=== PATIENT | male | born 1960 | race Two or more races ===

== ENCOUNTER 2024-11-08 22:51 | Emergency (ER) | payer MEDICAID, SELFPAY ==
[2024-11-08 23:19] VITALS: BP 149/96; PULSE 100; RESP 16; TEMP 36.9; O2SAT 95
--- NOTE | 2024-11-08 23:38 | XR_ITS ---
Examination: PA lateral chest 2 views TECHNIQUE: Upright PA and lateral chest 2 views Exam date time: November 08, 2024, 1047 hours INDICATIONS: Coughing and chest pain this week FINDINGS: Bibasilar pneumonia Normal heart size No pulmonary edema Intact osseous structures IMPRESSION: Bibasilar pneumonia
--- NOTE | 2024-11-08 23:39 | EDNOTE_ITS ---
ED Back Injury Pain RME/HPI General Chief Complaint: Back Pain/Injury Stated Complaint: RIGHT BACK AREA PAIN, COUGH Time Seen by Provider: 11/08/24 23:03 Arrival date/time: 11/08/24 22:51 Limitations: language barrier RME / HPI RME / HPI Narrative: 63-year-old male with past medical history of hypertension presents for evaluation of right rib pain x 3 days. Patient reports recent diagnosis of pneumonia for which she completed a course of antibiotics x 3 days ago. He reports intermittent nonproductive cough with chest wall pain that is worse on the right. Patient denies shortness of breath, fever, hemoptysis, nausea, vomiting, leg swelling, substernal chest pain. Patient reports he took Tylenol approximately 4 hours prior to arrival with minimal improvement of his chest wall pain. Denies known sick contacts. Denies history of recent long distance travel. Denies trauma. Related Data Home Medications ?Medication ?Instructions ?Recorded ?Confirmed Amlodipine Besylate 10 mg PO QDAY ##30 06/14/16 Aspirin (Adult Low Dose Aspirin) 81 mg PO QDAY ##30 Previous Rx's ?Medication ?Instructions ?Recorded azithromycin 250 mg tablet See Rx Instructions PO .COM PLEX 11/09/24 pneumonia #6 tabs cyclobenzaprine 10 mg tablet 10 mg PO TID PRN muscle s pasm #30 11/09/24 tabs doxycycline hyclate 100 mg capsule 100 mg PO BID pneum onia 10 days 11/09/24 #20 caps Allergies Allergy/AdvReac Type Severity Reaction Status Date / Time caffeine Allergy Severe DIFFICULTY Verified 11/08/24 22:52 BREATHING/ TACHYCARDIA ibuprofen Allergy Severe SWELLING Verified 11/08/24 22:52 TO MOUTH AND LIPS Penicillins Allergy Mild Rash Verified 11/08/24 22:52 Review of Systems Constitutional Constitutional: Denies chills, Denies excessive sweating, Denies fever(s), Denies night sweats and Denies weight loss ENT Ears, Nose, Mouth, and Throat: Denies dizziness and Denies neck pain Cardiovascular Cardiovascular: Denies chest pain, Denies dyspnea and Denies leg edema Respiratory Respiratory: Denies change in phlegm color, Reports cough, Denies dyspnea, Denies excessive phlegm production, Denies hemoptysis and Denies wheezing Gastrointestinal Gastrointestinal: Denies abdominal pain, Denies nausea and Denies vomiting Musculoskeletal Musculoskeletal: Reports back pain (Right sided thoracic pain. ) and Denies neck pain Integumentary/Breasts Skin/Breast: Denies rash Neurologic Neurologic: Denies dizziness Endocrine Endocrine: Denies excessive sweating Allergic/Immunologic Allergic/Immunologic: Denies wheezing Past Medical History Social History SMOKING STATUS: Never smoker ED Exam General Limitations: Present language barrier General appearance: Present alert and in no apparent distress Head Head exam: Present atraumatic and normocephalic Eye Eye exam: Present normal appearance and EOMI ENT ENT exam: Present normal oropharynx and mucous membranes moist Neck Neck exam: Present normal inspection and full ROM Chest Chest inspection: Present normal inspection and symmetric chest wall rise; Absent tenderness or rash Expanded Chest Exam Trauma: Absent crepitus or ecchymosis Respiratory Respiratory exam: Present normal lung sounds bilaterally; Absent respiratory distress or wheezes Cardiovascular Cardiovascular exam: Present tachycardia Abdominal Exam Abdominal exam: Present soft; Absent distention Extremities Exam Extremities exam: Present normal inspection and full ROM Back Exam Back exam: Present normal inspection and full ROM; Absent tenderness, CVA tenderness (R), CVA tenderness (L), paraspinal tenderness or vertebral tenderness Neurological Exam Neurological exam: Present alert Psychiatric Psychiatric exam: Present normal affect Skin Skin exam: Present warm, dry, intact and normal color Course Quality Measures none Orders Category Date Time Status CXR2 [XR chest 2V] Stat Exams 11/08/24 23:38 Completed CYCLObenzaPRINE [Flexeril] Med 11/09/24 00:08 Discontinued 5 mg PO X1 ONE Vital Signs Vital signs: Vital Signs Temperature 98.4 F 11/08/24 23:19 Pulse Rate 100 11/08/24 23:19 Respiratory Rate 16 11/08/24 23:19 Blood Pressure 149/96 H 11/08/24 23:19 Pulse Oximetry (%) 95 11/08/24 23:19 Oxygen Delivery Method Room Air 11/08/24 23:19 Pulse ox 95% on room air, within normal limits. Back Pain / Injury MDM Narrative MDM Narrative:: 63-year-old male presents with right sided chest wall pain for the last several days. Patient was recently diagnosed with pneumonia and finished a course of Levaquin x 3 days prior to arrival to the ED. Vital signs today significant for borderline tachycardia, otherwise reassuring. Patient nontoxic-appearing without significant physical exam. Chest x-ray was ordered given recent diagnosis of pneumonia which showed persistent bilateral bibasilar infiltrates. Chest wall pain possibly due to persistent coughing. Patient denied history of blood clots and shortness of breath, therefore less concern for PE at this time. Ultimately patient was discharged with antispasmodics and a course of azithromycin and doxycycline for recurrent pneumonia (E medical record showed possible penicillin allergy). Patient data External records reviewed:: None Clinical information provided by:: patient Social determinants that could affect healthcare access:: none Patient has the following chronic illnesses:: Recent pneumonia. How is presenting disease/condition affected by chronic disease/condition?: exacerbated by Evaluation data The following diagnostics were reviewed and interpreted by me:: radiology exam(s) Lab and/or radiology exams considered but not ordered:: Labs considered not ordered. Interpretation Summary: Chest x-ray significant for bilateral bibasilar consolidations. Medications / Prescriptions Medications or Prescriptions considered but not ordered:: Rx given. Medication administrations:: Medication Administration History Discontinued Medications Cyclobenzaprine HCl (Cyclobenzaprine 5 Mg Tablet) 5 mg PO X1 ONE Stop: 11/09/24 00:09 Last Admin: 11/09/24 00:20 Dose: 5 mg Documented By: LIAM Rx given. Consultations Consultation(s) initiated? (list below): No Diagnosis Differential diagnosis back pain/injury: strain of lumbar region, pyelonephritis, thoracic back pain, AAA and other (Costochondritis, pneumonia, chest wall discomfort.) Most likely diagnosis given after review of the tests above:: Pneumonia. Admission Indicated Admission indicated?: not indicated Admission Request Was there a request for admission?: No Disposition Plan Disposition Plan: Discharge Discharge Attestation Discharge Attestation: The patient and all family members were given an opportunity to ask questions and understood the discharge instructions. Discharge instructions specifically effects, indications for sooner follow up or return to the emergency department, and the expected course of current diagnosis. Patient condition: Stable Discharge Plan Plan Patient Disposition: HOME (Self Care) Disposition Comment: stable Prescriptions/Referrals Prescriptions/Med Rec: New azithromycin 250 mg tablet See Rx Instructions .ROUTE .COMPLEX Qty: 6 0RF Rx Instructions: For 250 mg dose pack: take 500 mg today (day 1), then 250 mg for 4 days (days 2-5) doxycycline hyclate 100 mg capsule 100 mg PO BID 10 Days Qty: 20 0RF cyclobenzaprine 10 mg tablet 10 mg PO TID PRN (Reason: muscle spasm) Qty: 30 0RF No Action Amlodipine Besylate 10 MG tablet 10 mg PO QDAY Qty: 30 Aspirin (Adult Low Dose Aspirin) 81 MG TABLET. 81 mg PO QDAY Qty: 30 Referrals: Gee Segal [Primary Care Provider] - In 1 week Problem List Clinical Impression: Bilateral pneumonia Patient/Caregiver Discharge Instructions Other Activity Instructions:: Follow-up with primary care tomorrow as planned. Take antibiotic as directed if primary care provider does not start you on a different course of antibiotics. Take cyclobenzaprine as needed for muscle spasm free hours. Return to the ED if your symptoms worsen or change. Education Materials: ED Pneumonia (Adult) Print Language: Italian Stand Alone Forms: Hilda Award Info., Patient Portal Info Letter PA/DIRECTOR PRODUCT MANAGEMENT Supervising Physician PA/DIRECTOR PRODUCT MANAGEMENT Supervising Physician: Dr. Byrd
[2024-11-09] MEDS: CYCLObenzaPRINE 5 MG TABLET PO (00:20)
== END 2024-11-09 00:25 | disposition home or self-care (01) ==
PROVIDERS: Emergency Provider Emergency Medicine; PCP Physician Assistant
DX: J18.9 Pneumonia, unspecified organism (principal)
CPT/HCPCS: 71046; 99283; A9270

== ENCOUNTER → 2024-12-10 | Outpatient (CLI) | payer MEDICAID, SELFPAY ==
--- NOTE | 2024-12-10 13:18 | XR_ITS ---
Examination: CT chest, without intravenous contrast. Sagittal and coronal 2-D reconstructions. Exam date and time: December 10, 2024 1344 hours INDICATIONS: Coughing congestion pneumonia one month CTDI:vol (mGy) 13.5 DLP: (mGycm) 518 Technique: Multiple 3.0 mm axial sections of the chest to been obtained. Bone and lung density settings are obtained. Sagittal and coronal 2-D reconstructions have been obtained. Low dose protocols were performed. One or more of the following dose reduction techniques were used; automated exposure control, adjustment of the mA and/or KV according to patient size, use of iterative reconstruction technique. Findings: No thoracic aortic aneurysm dilatation Pulmonary artery segments are not enlarged Moderate calcification left anterior descending coronary artery Mild enlargement left atrium left ventricle Significant pneumonia right base with small to moderate right pleural effusion No focal liver or splenic lesion 10 mm right adrenal adenoma Contracted gallbladder No pancreatic mass Moderate thoracic spondylosis IMPRESSION: Significant pneumonia right base Small to moderate right pleural effusion
== END | disposition home or self-care (01) ==
LOC: SCAT 13:10
PROVIDERS: PCP Physician Assistant; Referring Provider Physician Assistant; Visit Provider Physician Assistant
DX: J18.9 Pneumonia, unspecified organism (principal); J90 Pleural effusion, not elsewhere classified
CPT/HCPCS: 71250

== ENCOUNTER → 2025-01-26 | Outpatient (CLI) | payer MEDICAID, SELFPAY ==
--- NOTE | 2025-01-26 09:57 | XR_ITS ---
Examination: PA lateral chest 2 views TECHNIQUE: Upright PA lateral chest 2 views Date and time: January 26, 2025, 1007 hours Comparison November 08, 2024 INDICATIONS: Chest pain today. FINDINGS: Large right pleural effusion Pneumonia right lower lung zone No pulmonary edema No significant cardiac enlargement IMPRESSION: Large right pleural effusion Pneumonia right lower lung zone
== END | disposition home or self-care (01) ==
PROVIDERS: PCP Physician Assistant; Referring Provider Physician Assistant; Visit Provider Physician Assistant
DX: J90 Pleural effusion, not elsewhere classified (principal); J18.9 Pneumonia, unspecified organism
CPT/HCPCS: 71046

== ENCOUNTER 2025-02-18 17:04 | Inpatient (IN) | payer MEDICAID, SELFPAY ==
[2025-02-18] VITALS (9 sets, daily range): BP systolic 113–148; BP diastolic 72–101; PULSE 85–130; RESP 16–21; TEMP 37.1–37.2; O2SAT 94–98; BMI 26.4
--- NOTE | 2025-02-18 17:36 | XR_ITS ---
Examination: PA lateral chest 2 views TECHNIQUE: Upright PA and lateral chest 2 views Date and time: February 18, 2025, 1750 hours Comparison January 26, 2025 INDICATION: Chest pain and shortness of breath beginning 4 months ago. FINDINGS: Again noted large right pleural effusion with atelectasis and/or pneumonia right base Minor prominence left ventricle. No pulmonary edema IMPRESSION: Again noted large right pleural effusion with atelectasis and/or pneumonia right base
--- NOTE | 2025-02-18 17:36 | EKG_ITS ---
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
--- NOTE | 2025-02-18 17:36 | EDRME_ITS ---
Rapid Medical Screening Exam [facility] Arrival date/time: 02/18/25 17:04 64-year-old male with a history of hypertension presents to the emergency room with a chief complaint of shortness of breath, chest pain, palpitations x 3 days. Patient states he was seen by his primary care provider who sent him to the emergency room due to a pleural effusion. I have greeted and performed a focused initial assessment of this patient. A comprehensive ED assessment and evaluation of the patient, analysis of all test results, and completion of the medical decision making process will be conducted by additional ED providers. Chief Complaint: Shortness of Breath/Dyspnea Vital signs reviewed by provider: Yes
[2025-02-18 18:25] LABS: Basophils # (Auto) 0.0 Thou/mm3 (0.0-0.2); Basophils % (Auto) 0 % (0-2.5); Eosinophils # (Auto) 0.1 Thou/mm3 (0.0-0.5); Eosinophils % (Auto) 1 % (0-10); Hematocrit 45.9 % (41.0-53.0); Hemoglobin 15.3 g/dL (13.5-16.0); Immature Granulocytes Auto 0.05 Thou/mm3 (0.00-0.00); Lymphocytes # (Auto) 2.0 Thou/mm3 (1.0-4.8); Lymphocytes % (Auto) 17 % (10-50); Mean Corpuscular HGB Conc 33.3 g/dl (31.0-37.0); Mean Corpuscular Hemoglobin 26.2 pg (25.0-35.0); Mean Corpuscular Volume 79 fL (80-100); Monocytes # (Auto) 0.8 Thou/mm3 (0.0-0.8); Monocytes % (Auto) 7 % (0-12); Neutrophils # (Auto) 8.7 Thou/mm3 (1.8-7.7); Neutrophils % (Auto) 75 % (37-80); Nucleated Red Blood Cell # 0.00 Thou/mm3 (0.00-0.00); Nucleated Red Blood Cell % 0 /100 WBC (0); Platelet Count 354 Thou/mm3 (140-440); RDW Standard Deviation 39.6 fL (35.1-43.9); Red Blood Count 5.85 Miln/mm3 (4.50-5.90); White Blood Count 11.6 Thou/mm3 (3.8-10.6)
[2025-02-18 18:46] LABS: B-Type Natriuretic Peptide 89 pg/mL (0-100)
[2025-02-18 18:47] LABS: INR 1.1 (0.9-1.3); Partial Thromboplastin Time 28.7 Seconds (22.0-36.0); Prothrombin Time 12.0 Seconds (9.0-12.2)
[2025-02-18 18:48] LABS: Alanine Aminotransferase 40 U/L (10-49); Albumin, Serum 4.3 gm/dL (3.4-4.8); Albumin/Globulin Ratio 1.3 (1.2-2.2); Alkaline Phosphatase 126 U/L (46-116); Anion Gap 8 (7-16); Aspartate Amino Transferase 21 U/L (0-34); BUN/Creatinine Ratio 16 Ratio (12-20); Bilirubin,Total 0.4 mg/dL (0.3-1.2); Blood Urea Nitrogen 16 mg/dL (9-23); Calcium 9.4 mg/dL (8.3-10.6); Calcium (Corrected) 9.4 mg/dL (8.5-10.1); Carbon Dioxide 29.0 mMol/L (20.0-31.0); Chloride 102 mMol/L (98-107); Creatinine (Component) 1.0 mg/dL (0.6-1.3); Estimated Creatinine Clearance 68.2 mL/min (>60); Globulin 3.3 gm/dL (2.3-3.5); Glucose 253 mg/dL (74-106); Osmolality,Calculated 287 (275-295); Potassium 4.0 mMol/L (3.4-5.1); Sodium 139 mMol/L (136-145); Total Protein 7.6 gm/dL (5.7-8.2); Troponin I < 0.020 ng/mL (0.0-0.045); eGFR > 60 See Note
--- NOTE | 2025-02-18 19:19 | PD.EDADULT ---
ED General RME/HPI General Chief complaint: Shortness of Breath/Dyspnea Stated complaint: SENT BY PMD FOR RIGHT PLURAL EFFUSION Time Seen by Provider: 02/18/25 18:20 Arrival date/time: 02/18/25 17:04 RME / HPI RME / HPI narrative: 02/18/25 17:04 64-year-old male with a history of hypertension presents to the emergency room with a chief complaint of shortness of breath, chest pain, palpitations x 3 days. Patient states he was seen by his primary care provider who sent him to the emergency room due to a pleural effusion. I have greeted and performed a focused initial assessment of this patient. A comprehensive ED assessment and evaluation of the patient, analysis of all test results, and completion of the medical decision making process will be conducted by additional ED providers. Related Data Home Medications ?Medication ?Instructions ?Recorded ?Confirmed Amlodipine Besylate 10 mg PO QDAY ##30 06/14/16 Aspirin (Adult Low Dose Aspirin) 81 mg PO QDAY ##30 06/14/16 Previous Rx's ?Medication ?Instructions ?Recorded azithromycin 250 mg tablet See Rx Instructions PO .COMPLEX 11/09/24 pneumonia #6 tabs cyclobenzaprine 10 mg tablet 10 mg PO TID PRN muscle spasm #30 11/09/24 tabs Allergies Allergy/AdvReac Type Severity Reaction Status Date / Time caffeine Allergy Severe DIFFICULTY Verified 02/18/25 17:10 BREATHING/ TACHYCARDIA ibuprofen Allergy Severe SWELLING Verified 02/18/25 17:10 TO MOUTH AND LIPS Penicillins Allergy Mild Rash Verified 02/18/25 17:10 Review of Systems Review of Systems Systems Reviewed: All systems reviewed, normal except as documented ED Exam Narrative Physical exam: Physical Exam GENERAL: NAD, AAOx3 HEENT: Moist mucosa. Eyes open, symmetrical, & clear CARDIO: Heart irregularly irregular, tachycardic, no obvious murmurs PULM: diminished breath sounds on the right, CTA on the left GI: Abdomen soft, nondistended, no pain on palpation. BSx4 SKIN/MSK/EXT: No wounds/rashes/edema/amputations, no pain on palpation. Pedal pulses present B/L NEURO: AAOx3, no focal neuro deficits, able to move all 4 extremities Course Course Course Narrative: 1942 Diltiazem 15mg IVx1 ordered 2012 spoke to IM team will accept the patient Quality Measures none Orders Category Date Time Status Powderer Q4H START 00 Care 02/18/25 19:51 Active EKG (ED ONLY) *Do not use* NOW Care 02/18/25 17:36 Completed Insert [Insert IV] NOW Care 02/18/25 19:43 Active Consult to Cardiology Stat Cons 02/18/25 20:14 Ordered CA echo doppler complete Stat Exams 02/18/25 20:14 Ordered EKG (ED Only) Stat Exams 02/18/25 17:36 Draft US thoracentesis Stat Exams 02/18/25 20:14 Ordered XR chest 2V Stat Exams 02/18/25 17:36 Completed B-Type Natriuretic Peptide Stat Lab 02/18/25 18:03 Completed CBC Stat Lab 02/18/25 18:03 Completed Comprehensive Metabolic Panel Stat Lab 02/18/25 18:03 Completed Partial Thromboplastin Time Stat Lab 02/18/25 18:03 Completed Prothrombin Time with INR Stat Lab 02/18/25 18:03 Completed Troponin I Stat Lab 02/18/25 18:03 Completed Diltiazem Inj [Cardizem Inj] Med 02/18/25 19:43 Discontinued 15 mg IV X1 ONE Diltiazem Inj [Cardizem Inj] Med 02/18/25 20:16 Discontinued 20 mg IV X1 ONE Vital Signs Vital signs: Vital Signs Temperature 98.9 F 02/18/25 17:36 Pulse Rate 105 H 02/18/25 17:36 Respiratory Rate 19 02/18/25 17:36 Blood Pressure 148/92 H 02/18/25 17:36 Pulse Oximetry (%) 96 02/18/25 17:36 Oxygen Delivery Method Room Air 02/18/25 17:36 Discharge Plan Plan Patient Disposition: Admit Acute Care w/in Hospital Problem List Clinical Impression: Pleural effusion, Atrial fibrillation, Atrial fibrillation and flutter MDM Narrative MDM hospital course: 64 y/o M with PMHx of Hypertension, asthma, HLD presented to the ED due to palpitations. he states palpitations get worse with ambulation but they are consistently present. 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 Patient has been having recurrent pneumonias for the past 3 months and has completed Abx therapy. Last Abx therapy completed around 10 days ago. He endorses continous fever and chills. EKG reviewed shows A-fib RVR rate ~120s, No ST ischemic changes noted, nor QT prolongation Was placed in a room for continuous cardiac monitoring. ordered 20mg diltiazem IV x1 Spoke to service correspondent Dr. bloom who recommended admission and possible Amiodarone drip if afib is uncontrolled. Clinical Information Provided by patient and family Medical Records Reviewed None Meds/Rx Considered, not Ordered None Chronic Illness/Social Conditions which may negatively complicate care or outcome(s)-explain: None or not applicable Lab Interpretation Labs: interpreted by me Lab(s) interpretation(s): CBC unremarkable, CMP unremarkable, troponins negative, BNP negative Imaging Imaging interpretation: interpreted by ak Provider imaging interpretation(s): CXR large right sided pleural effusion, right sided pneumonia. Medication Administration(s) Medication Administration History Acetaminophen (Acetaminophen 325 Mg Tablet) 650 mg PO Q6H PRN PRN Reason: Pain 1-3 and/or Fever >100.1 Stop: 03/20/25 20:27 Dextrose (Dextrose 50%-Water Inj 50 Ml Syringe) 25 ml IV Q15MIN PRN PRN Reason: BG 50-70 responsive npo pt Stop: 03/20/25 21:30 Dextrose (Dextrose 50%-Water Inj 50 Ml Syringe) 50 ml IV Q15MIN PRN PRN Reason: BG <50 OR BG <70 & pt unresponsive Stop: 03/20/25 21:30 Glucagon (Glucagon Inj 1 Mg Vial) 1 mg IM Q15MIN PRN PRN Reason: BG <70, and no IV access Heparin Sodium (Porcine) (Heparin Sod Inj 5000 Unit/Ml Vial) 4,000 unit IV X1 ONE; Protocol Stop: 02/18/25 22:06 Cefepime HCl 1 gm/ Sodium (Chloride) 50 mls @ 100 mls/hr IV Q8HR [facility] Stop: 02/25/25 20:37 Last Infusion: 02/18/25 22:21 Dose: Infused Documented By: Admin: 02/18/25 21:42 Dose: 100 mls/hr Documented By: PHILLIP Azithromycin 500 mg/ Sodium (Chloride) 250 mls @ 250 mls/hr IV QDAY [facility] Stop: 02/25/25 21:57 Heparin Sodium/Dextrose (Heparin In D5w Ivpb) 25,000 unit in 250 mls @ 11.158 mls/hr IV .[id number] [facility]; Protocol Stop: 03/04/25 21:59 Azithromycin 500 mg/ Sodium (Chloride) 250 mls @ 250 mls/hr IV X1 ONE Stop: 02/18/25 23:14 Insulin Human Lispro (Insulin Lispro (Admelog) 1 Unit/0.01 Ml Unit) 0 unit SC AC [facility]; Protocol Stop: 03/21/25 07:29 Metoprolol Tartrate (Metoprolol Tartrate 25 Mg Tablet) 25 mg PO TID TU Stop: 03/20/25 21:59 Last Admin: 02/18/25 21:41 Dose: 25 mg Documented By: PHILLIP Ondansetron HCl (Ondansetron Inj 2 Mg/Ml Inj 2 Ml) 4 mg IVP Q6H PRN; Protocol PRN Reason: NAUSEA OR VOMITING Stop: 03/20/25 20:27 Sennosides (Senna Tablet) 1 tab PO QDAY PRN; Protocol PRN Reason: constipation Stop: 03/20/25 20:27 Discontinued Medications Diltiazem HCl (Diltiazem Inj 5 Mg/Ml Vial 5 Ml) 15 mg IV X1 ONE Stop: 02/18/25 19:44 Last Admin: 02/18/25 21:49 Dose: Not Given Documented By: PHILLIP Non-Admin Reason: Cancelled by Provider Diltiazem HCl (Diltiazem Inj 5 Mg/Ml Vial 5 Ml) 20 mg IV X1 ONE Stop: 02/18/25 20:17 Last Admin: 02/18/25 20:33 Dose: 20 mg Documented By: PHILLIP Comments: OVER 5 MINUTES TO 18G RIGHT HAND Heparin Sodium (Porcine) (Heparin Sod Inj 5000 Unit/Ml Vial) 5,000 unit SC Q12HR [facility] Stop: 03/04/25 20:59 Last Admin: 02/18/25 21:46 Dose: 5,000 unit Documented By: PHILLIP Co-signed By: SOFIYA Heparin Sodium (Porcine) (Heparin Sod Inj 5000 Unit/Ml Vial) 5,950 unit 80 unit/kg (5950 unit) IV X1 ONE; Protocol Stop: 02/18/25 22:01 Sodium Chloride (Ns) 500 mls @ 999 mls/hr IV .Q31M ONE Stop: 02/18/25 21:01 Last Infusion: 02/18/25 22:21 Dose: Infused Documented By: Admin: 02/18/25 20:49 Dose: 999 mls/hr Documented By: PHILLIP Sodium Chloride (Sodium Chloride Rt 10% 15 Ml Nebu) 5 ml INH X1 ONE Stop: 02/18/25 21:14 Last Admin: 02/18/25 21:44 Dose: 5 ml Documented By: DIDIER Sodium Chloride (Sodium Chloride Rt 10% 15 Ml Nebu) 5 ml INH X1 ONE Stop: 02/18/25 21:59 Diagnosis Differential diagnosis: Recurrent pleural effusions, Atrial fibrillation RVR, Differential dx and/or dx ruled out: NSTEMI Most likely dx, and/or detailed dx discussion: Afib RVR Dispositon Disposition: Admit
[2025-02-18] MEDS: DILTIAZEM INJ 5 MG/ML VIAL 5 ML 20 MG IV (20:33)
[2025-02-18] MEDS: SODIUM CHLORIDE 0.9% 500 ML 500 ML 999 ML IV (20:49)
--- NOTE | 2025-02-18 21:05 | ESHP_ITS ---
Documentation for date of: 02/18/25 HPI History of Present Illness Chief complaint: Palpitations History of present illness: 64-year-old male past medical history of hypertension, prediabetes and recurrent pneumonia which has failed outpatient antibiotic therapy presenting to the ED on 02/18 with palpitations and feeling tachycardic. Patient is accompanied by his daughter who is bedside who provided history regarding the patient's status. Patient has been dealing with recurrent pneumonia infections for several months and states that he has been having cough productive of sputum, weight loss (about 21 pounds since September), night sweats but denies having any active chest pain, diarrhea, hematemesis, melena or hematochezia. Of note, patient recently traveled to [place] but denies having any sick contacts. 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 Medical history: As stated above Surgical history: Right knee and shoulder surgery, hernia repair Medications: Pending med rec Allergies: Caffeine causes difficulty breathing, tachycardia, ibuprofen causes swelling in the mouth and lips, penicillin causes rash Family history: Noncontributory Social history: Patient lives in [place] with and daughter, denies smoking tobacco, alcohol use or illicit drug use. Recent travel to [place] in September ROS: All 12 systems assessed and the patient denies unless otherwise stated in HPI. In the ED, patient presented hypertensive 148/92, tachycardic heart rate 105, respiratory rate 19, afebrile satting 96 on room air. Pertinent lab findings included WBC 11.6, glucose 253, troponin within normal limits, BNP of 89. Chest x-ray shows large right pleural effusion with atelectasis and superimposed pneumonia. EKG showed A-fib with RVR. Patient will be admitted for new onset atrial fibrillation likely secondary to right-sided pleural effusion and pneumonia requiring IV antibiotics and ultrasound-guided thoracentesis; cardiology is consulted for recommendations. Exam Vital Signs Temp Pulse Resp BP Pulse Ox O2 Del Method 98.8 F 99 19 131/72 H 94 L Room Air 02/18/25 20:48 02/18/25 20:50 02/18/25 20:50 02/18/25 20:50 02/18/25 20:50 02/18/25 20:50 Narrative Exam Physical Exam: GENERAL: Awake, answering questions appropriately in [place], appears stated age HEENT: NC/AT. Moist mucosa. PERRLA/EOMI. CARDIO: Irregulary irregular, no obvious murmurs, no JVD. PULM: No coughing or visible SOB. Lungs CTA B/L. GI: Abdomen soft, NT/ND, +BS. SKIN/MSK/EXT: No wounds/discoloration/rashes/edema/amputations. +Pedal pulses present B/L. NEURO: Oriented x3, Moves extremities x4, no focal neurologic deficits noted Results: Labs 02/18/25 18:03 02/18/25 18:03 Labs: Short CBC 02/18/25 Range/Units 18:03 WBC 11.6 H (3.8-10.6) Thou/mm3 Hgb 15.3 (13.5-16.0) g/dL Hct 45.9 (41.0-53.0) % Plt Count 354 (140-440) Thou/mm3 BMP 02/18/25 18:03 Sodium 139 Potassium 4.0 Chloride 102 Carbon Dioxide 29.0 BUN 16 Creatinine 1.0 Glucose 253 H Calcium 9.4 Cardiac Enzymes 02/18/25 Range/Units 18:03 Troponin I < 0.020 (0.0-0.045) ng/mL Liver Function 02/18/25 Range/Units 18:03 Total Bilirubin 0.4 (0.3-1.2) mg/dL AST 21 (0-34) U/L ALT 40 (10-49) U/L Alkaline Phosphatase 126 H (46-116) U/L Albumin 4.3 (3.4-4.8) gm/dL Quality Measures Quality Measures none Medications Home Medications and Allergies Home Medications ?Medication ?Instructions ?Recorded ?Confirmed ?Type Amlodipine Besylate 10 mg PO QDAY ##30 06/14/16 History Aspirin (Adult Low Dose Aspirin) 81 mg PO QDAY ##30 History Allergies Allergy/AdvReac Type Severity Reaction Status Date / Time caffeine Allergy Severe DIFFICULTY Verified 02/18/25 17:10 BREATHING/ TACHYCARDIA ibuprofen Allergy Severe SWELLING Verified 02/18/25 17:10 TO MOUTH AND LIPS Penicillins Allergy Mild Rash Verified 02/18/25 17:10 Visit Medications Acetaminophen (Acetaminophen 325 Mg Tablet) 650 mg PO Q6H PRN PRN Reason: Pain 1-3 and/or Fever >100.1 Stop: 03/20/25 20:27 Heparin Sodium (Porcine) (Heparin Sod Inj 5000 Unit/Ml Vial) 5,000 unit SC Q12HR TU Stop: 03/04/25 20:59 Cefepime HCl 1 gm/ Sodium (Chloride) 50 mls @ 100 mls/hr IV Q8HR TU Stop: 02/25/25 20:37 Metoprolol Tartrate (Metoprolol Tartrate 25 Mg Tablet) 25 mg PO TID TU Stop: 03/20/25 21:59 Ondansetron HCl (Ondansetron Inj 2 Mg/Ml Inj 2 Ml) 4 mg IVP Q6H PRN; Protocol PRN Reason: NAUSEA OR VOMITING Stop: 03/20/25 20:27 Sennosides (Senna Tablet) 1 tab PO QDAY PRN; Protocol PRN Reason: constipation Stop: 03/20/25 20:27 Discontinued Medications Diltiazem HCl (Diltiazem Inj 5 Mg/Ml Vial 5 Ml) 15 mg IV X1 ONE Stop: 02/18/25 19:44 Diltiazem HCl (Diltiazem Inj 5 Mg/Ml Vial 5 Ml) 20 mg IV X1 ONE Stop: 02/18/25 20:17 Last Admin: 02/18/25 20:33 Dose: 20 mg Sodium Chloride (Ns) 500 mls @ 999 mls/hr IV .Q31M ONE Stop: 02/18/25 21:01 Last Admin: 02/18/25 20:49 Dose: 999 mls/hr Assessment & Plan Plan 64-year-old male past medical history of hypertension, prediabetes and recurrent pneumonia which has failed outpatient antibiotic therapy presenting to the ED on 02/18 with palpitations and feeling tachycardic will be admitted for new onset atrial fibrillation likely secondary to right-sided pleural effusion and pneumonia requiring IV antibiotics and ultrasound-guided thoracentesis; cardiology is consulted for recommendations. #New onset atrial fibrillation Differentials include: Secondary to pulmonary infection, pleural effusion versus cardiac etiology, valvular disorder, less likely to be hypothyroidism [id number] score of 2 Patient presenting as per HPI with palpitations ongoing for about 1 day, EKG at pulmonology clinic showed atrial fibrillation at which point patient presented to the ED On examination, patient's heart rate fluctuating between 100-130 EKG showed A-fib with RVR, troponin within normal limits, BNP of 89 Cardiology was consulted in the ED, recommendation was to give 15 mg diltiazem push x 1 which brought down the patient's heart rate to a low of 90s Plan: Telemetry admission Cardiology consulted, appreciate recommendations Start patient on IV heparin for new onset atrial fibrillation Echo ordered Metoprolol tartrate 25 mg p.o. 3 times daily for rate control Follow-up on TSH and lipid panel #Right pleural effusion with superimposed pneumonia #Atypical pneumonia Differentials include: Cocci pneumonia, tuberculosis, pulmonary neoplasm, aspergillosis, other atypical bacterial infection, autoimmune versus vascular Patient's been having recurrent pneumonia since September 2024, failed outpatient antibiotic treatment PCP sent the patient to pulmonology for workup as stated above Patient has been having night sweats, weight loss (21 pounds as above), recent travel to [place] CT from 12/10 showed significant pneumonia right base along with small to moderate right pleural effusion Chest x-ray shows large right pleural effusion with atelectasis and superimposed pneumonia Plan: CT chest ordered, follow-up Ultrasound-guided thoracentesis ordered; consider consulting ICU team for thoracentesis - not emergently needed as the patient is stable at this time. Get CYTOLOGY Form Start patient on IV cefepime 1 g every 8 and IV azithromycin 500 mg Follow-up on cocci, aspergillosis, AFB and QuantiFERON Avoid steroids for possible fungal infection JORGE L, ANCA, ESR and CRP ordered to rule out vasculitis etiology #Hypertension Patient on home antihypertensives, pending official med rec Currently normotensive Plan: Will resume antihypertensives when appropriate #Prediabetes No A1c on file, presenting with glucose of 253 Plan: Sliding-scale insulin Follow-up with morning A1c Health Maintenance: Lines: PIV Diet: Cardiac Bowel: Senna as needed GI prophylaxis: Not needed DVT prophylaxis: Heparin drip Dispo: Workup for new onset A-fib, thoracentesis for pleural effusion and diagnosis of atypical pneumonia Code: Full Patient seen and examined with attending Dr. Bunny Epperson, DO PGY-2 Internal Medicine - [facility]
[2025-02-18] MEDS: METOPROLOL TARTRATE 25 MG TABLET PO (21:41)
[2025-02-18] MEDS: CEFEPIME INJ 1 GM in SODIUM CHLORIDE 0.9% (Popper) 50 ML IV (21:42)
[2025-02-18] MEDS: SODIUM CHLORIDE RT 10% 15 ML NEBU 5 ML INH (21:44)
[2025-02-18] MEDS: HEPARIN SOD INJ 5000 UNIT/ML VIAL SC (21:46)
--- NOTE | 2025-02-18 21:58 | XR_ITS ---
Examination: CT chest, without intravenous contrast. Sagittal and coronal 2-D reconstructions. Exam date and time: February 18, 2025 at 11:13 PM Comparison December 10, 2024 INDICATIONS: Difficulty breathing this week CTDI:vol (mGy) 13 DLP: (mGycm) 499 Technique: Multiple 3.0 mm axial sections of the chest to been obtained. Bone and lung density settings are obtained. Sagittal and coronal 2-D reconstructions have been obtained. Low dose protocols were performed. One or more of the following dose reduction techniques were used; automated exposure control, adjustment of the mA and/or KV according to patient size, use of iterative reconstruction technique. Findings: AP dimension ascending thoracic aorta 3.8 cm Pulmonary artery segments are not enlarged. Heavy calcification left anterior descending coronary artery. Right base pneumonia. Moderate to large right pleural effusion No liver or splenic lesion IMPRESSION: Right base pneumonia Moderate to large right pleural effusion
[2025-02-18 22:28] LABS: Sed Rate (ESR) 71 mm/hr (0-20)
--- NOTE | 2025-02-18 23:00 | PC.NURSE ---
SPOKE WITH DR. NELSON TO VERIFY HEPARIN BOLUS PATIENT HAS ALREADY RECEIVED HEPARIN 500UNITS SQ, PER DR. NELSON HEPARIN 4000 UNITS TO STILL BE GIVEN AND TO START HEPARIN DRIP RATE AT 15 UNITS/KG/HR.
[2025-02-18] MEDS: Heparin/D5w 25K 250 ML Ivpb 25,000 UNIT/250 ML BAG 11.376 UNIT IV (23:37)
--- NOTE | 2025-02-18 23:59 | PC.NURSE ---
DR. FONG NOTIFIED THAT PATIENT REFUSED AZITHROMYCIN MEDICATION, NO NEW ORDERS RECEIVED.
[2025-02-19] VITALS (18 sets, daily range): BP systolic 102–139; BP diastolic 56–97; PULSE 77–126; RESP 16–22; TEMP 36.1–37; O2SAT 92–99
[2025-02-19 00:47] LABS: Respiratory Syncytial Virus Ag Negative (Negative)
[2025-02-19 00:57] LABS: C-Reactive Protein 2.7 mg/dL (0.0-0.9)
--- NOTE | 2025-02-19 01:08 | PC.NURSE ---
surface water technician called and stated the sputum sample sent had a lot of epithelial cells, stated it needs to be collected again. Will notify RN in charge of care of pt.
--- NOTE | 2025-02-19 03:33 | PC.RT ---
pt unable to give sputum sample
--- NOTE | 2025-02-19 04:23 | PC.NURSE ---
DR. FONG NOTIFIED OF EPISODE OF V-TACH AND RHYTHM RETURNING TO A-FIB. PATIENT DENIES CHEST PAIN,PALPITATIONS, OR SOB, NO NEW ORDERS RECEIVED.
[2025-02-19 04:37] LABS: Basophils # (Auto) 0.0 Thou/mm3 (0.0-0.2); Basophils % (Auto) 0 % (0-2.5); Eosinophils # (Auto) 0.2 Thou/mm3 (0.0-0.5); Eosinophils % (Auto) 2 % (0-10); Hematocrit 42.9 % (41.0-53.0); Hemoglobin 14.5 g/dL (13.5-16.0); Immature Granulocytes Auto 0.06 Thou/mm3 (0.00-0.00); Lymphocytes # (Auto) 2.6 Thou/mm3 (1.0-4.8); Lymphocytes % (Auto) 22 % (10-50); Mean Corpuscular HGB Conc 33.8 g/dl (31.0-37.0); Mean Corpuscular Hemoglobin 26.6 pg (25.0-35.0); Mean Corpuscular Volume 79 fL (80-100); Monocytes # (Auto) 0.9 Thou/mm3 (0.0-0.8); Monocytes % (Auto) 8 % (0-12); Neutrophils # (Auto) 7.9 Thou/mm3 (1.8-7.7); Neutrophils % (Auto) 68 % (37-80); Nucleated Red Blood Cell # 0.00 Thou/mm3 (0.00-0.00); Nucleated Red Blood Cell % 0 /100 WBC (0); Platelet Count 312 Thou/mm3 (140-440); RDW Standard Deviation 39.2 fL (35.1-43.9); Red Blood Count 5.45 Miln/mm3 (4.50-5.90); White Blood Count 11.6 Thou/mm3 (3.8-10.6)
[2025-02-19 05:08] LABS: Alanine Aminotransferase 32 U/L (10-49); Albumin, Serum 3.6 gm/dL (3.4-4.8); Albumin/Globulin Ratio 1.3 (1.2-2.2); Alkaline Phosphatase 136 U/L (46-116); Anion Gap 10 (7-16); Aspartate Amino Transferase 18 U/L (0-34); BUN/Creatinine Ratio 18 Ratio (12-20); Bilirubin,Total 0.3 mg/dL (0.3-1.2); Blood Urea Nitrogen 14 mg/dL (9-23); Calcium 8.6 mg/dL (8.3-10.6); Calcium (Corrected) 8.9 mg/dL (8.5-10.1); Carbon Dioxide 28.4 mMol/L (20.0-31.0); Cardiac Risk Estimate 5.7 RATIO (4.0-6.7); Chloride 102 mMol/L (98-107); Cholesterol 142 mg/dL (132-200); Creatinine (Component) 0.8 mg/dL (0.6-1.3); Estimated Creatinine Clearance 85.3 mL/min (>60); Globulin 2.8 gm/dL (2.3-3.5); Glucose 314 mg/dL (74-106); HDL Cholesterol 25 mg/dL (40-60); LDL Cholesterol,Calculated 63 mg/dL (0-130); Magnesium 1.5 mg/dL (1.6-2.6); Osmolality,Calculated 291 (275-295); Phosphorous 2.2 mg/dL (2.4-5.1); Potassium 3.7 mMol/L (3.4-5.1); Sodium 140 mMol/L (136-145); Thyroid Stimulating Hormone 2.75 uIU/mL (0.55-4.78); Total Protein 6.4 gm/dL (5.7-8.2); Triglycerides 268 mg/dL (30-150); eGFR > 60 See Note
[2025-02-19 05:19] LABS: Glucose Estimated Average 157 mg/dL (80-131); Hemoglobin A1C 7.1 % Hgb (4.8-6.0)
[2025-02-19] MEDS: CEFEPIME INJ 1 GM in SODIUM CHLORIDE 0.9% (Popper) 50 ML IV ×3 (05:46→23:54)
[2025-02-19 06:17] LABS: Partial Thromboplastin Time 46.1 Seconds (22.0-36.0)
[2025-02-19] MEDS: NAPH,KPH MBDB 1 PACKET (1.5 GM) PO (06:22)
[2025-02-19] MEDS: METOPROLOL TARTRATE 25 MG TABLET PO ×3 (06:22→23:02)
[2025-02-19] MEDS: Magnesium Sulfate 4 GM Ivpb 4 GM/50 ML BAG IV (06:23)
[2025-02-19] MEDS: INSULIN LISPRO (AdmeLOG) 1 UNIT/0.01 ML UNIT SC ×3 (08:09→16:56)
[2025-02-19] MEDS: HEPARIN SOD INJ 5000 UNIT/ML VIAL 3000 UNIT IVP (08:10)
[2025-02-19] MEDS: AZITHROMYCIN INJ 500 MG in SODIUM CHLORIDE 0.9% 250 ML 250 ML 250 MG IV (13:29)
[2025-02-19 13:50] LABS: Cocci Serology, IgM Negative (Negative)
--- NOTE | 2025-02-19 14:03 | PC.RT ---
Noc shift RT attempted to collect sputum sample in ER with induction, however pt was only able to produce saliva. Day shift RT attempted to collect another sample in ER, but pt stated via dietary services manager that he is dry and has no mucous or phlegm to produce.
[2025-02-19 14:15] LABS: Partial Thromboplastin Time 61.3 Seconds (22.0-36.0)
--- NOTE | 2025-02-19 15:16 | ESPR_ITS ---
Documentation for date of: 02/19/25 Subjective Subjective Interval history: Patient seen sitting upright in bed in no acute distress. Denies palpitations, chest pain, shortness of breath, pleuritic chest pain, fever, or chills. States he rarely coughs, no blood in sputum. Denies headaches. Had breakfast this morning and feels well overall. No bowel movement yet since admission. Exam Vital Signs Temp Pulse Resp BP Pulse Ox O2 Del Method 97.1 F 126 H 17 131/97 H 96 Room Air 02/19/25 11:41 02/19/25 14:56 02/19/25 11:41 02/19/25 14:56 02/19/25 11:41 02/19/25 11:41 Narrative Exam GENERAL: Sitting upright in bed, no acute distress, conversing appropriately in [place]. HEENT: NC/AT, moist mucous membranes. NECK: No JVD, no lymphadenopathy. CV: Irregularly irregular rhythm, no murmurs, rubs or gallops. No JVD. RESPIRATORY: Diminished breath sounds at right base, no wheezes or crackles, no increased work of breathing. GI: Soft, non-tender, non-distended, +BS. EXT: No edema, warm, well perfused, pedal pulses 2+ bilaterally. NEURO: AOx3, no focal deficits. Moves all extremities. SKIN: Warm, dry, no rashes. Objective Labs 02/19/25 04:25 02/19/25 04:25 Labs: Laboratory Results - last 24 hr 02/18/25 02/18/25 02/18/25 18:03 21:06 23:55 WBC 11.6 H RBC 5.85 Hgb 15.3 Hct 45.9 MCV 79 L MCH 26.2 MCHC 33.3 RDW Std Deviation 39.6 Plt Count 354 Neut % (Auto) 75 Lymph % (Auto) 17 [place] % (Auto) 7 Eos % (Auto) 1 Baso % (Auto) 0 Neut # (Auto) 8.7 H Lymph # (Auto) 2.0 [place] # (Auto) 0.8 Eos # (Auto) 0.1 Baso # (Auto) 0.0 Immature Gran # (Auto) 0.05 H Absolute Nucleated RBC 0.00 Immature Gran % 0 Nucleated RBC % 0 ESR 71 H PT 12.0 INR 1.1 APTT 28.7 Sodium 139 Potassium 4.0 Chloride 102 Carbon Dioxide 29.0 Anion Gap 8 BUN 16 Creatinine 1.0 Estim Creat Clear Calc 68.2 eGFR > 60 BUN/Creatinine Ratio [address] Glu mg/dL Hemoglobin A1c Calculated Osmolality 287 Calcium 9.4 Corrected Calcium 9.4 Phosphorus Magnesium Total Bilirubin 0.4 AST 21 ALT 40 Alkaline Phosphatase 126 H Troponin I < 0.020 C-Reactive Prot, Quant 2.7 H B-Natriuretic Peptide 89 Total Protein 7.6 Albumin 4.3 Globulin 3.3 Albumin/Globulin Ratio 1.3 Triglycerides Cholesterol LDL Cholesterol, Calc HDL Cholesterol Cholesterol/HDL Ratio TSH Coccidioides IgM Ab RSV Rapid Negative 02/19/25 02/19/25 02/19/25 04:25 05:42 13:40 WBC 11.6 H RBC 5.45 Hgb 14.5 Hct 42.9 MCV 79 L MCH 26.6 MCHC 33.8 RDW Std Deviation 39.2 Plt Count 312 D Neut % (Auto) 68 Lymph % (Auto) 22 [place] % (Auto) 8 Eos % (Auto) 2 Baso % (Auto) 0 Neut # (Auto) 7.9 H Lymph # (Auto) 2.6 [place] # (Auto) 0.9 H Eos # (Auto) 0.2 Baso # (Auto) 0.0 Immature Gran # (Auto) 0.06 H Absolute Nucleated RBC 0.00 Immature Gran % 1 H Nucleated RBC % 0 ESR PT INR APTT 46.1 H D 61.3 H D Sodium 140 Potassium 3.7 Chloride 102 Carbon Dioxide 28.4 Anion Gap 10 BUN 14 Creatinine 0.8 Estim Creat Clear Calc 85.3 eGFR > 60 BUN/Creatinine Ratio 18 Glucose [address] Glu mg/dL 157 H Hemoglobin A1c 7.1 H Calculated Osmolality 291 Calcium 8.6 Corrected Calcium 8.9 Phosphorus 2.2 L Magnesium 1.5 L Total Bilirubin 0.3 AST 18 ALT 32 Alkaline Phosphatase 136 H Troponin I C-Reactive Prot, Quant B-Natriuretic Peptide Total Protein 6.4 Albumin 3.6 D Globulin 2.8 Albumin/Globulin Ratio 1.3 Triglycerides 268 H Cholesterol 142 LDL Cholesterol, Calc 63 HDL Cholesterol 25 L Cholesterol/HDL Ratio 5.7 TSH 2.75 Coccidioides IgM Ab Negative RSV Rapid Quality Measures Quality Measures none Assessment & Plan Assessment Current Active Medications: Generic Name Dose Route Start Last Admin Trade Name Freq PRN Reason Stop Dose Admin Acetaminophen 650 mg 02/18/25 20:28 Acetaminophen 325 Mg Tablet PO 03/20/25 20:27 Q6H PRN Pain 1-3 and/or Fever >100.1 Dextrose 25 ml 02/18/25 21:31 Dextrose 50%-Water Inj 50 Ml Syringe IV 03/20/25 21:30 Q15MIN PRN BG 50-70 responsive npo pt Dextrose 50 ml 02/18/25 21:31 Dextrose 50%-Water Inj 50 Ml Syringe IV 03/20/25 21:30 Q15MIN PRN BG <50 OR BG <70 & pt unresponsive Glucagon 1 mg 02/18/25 21:31 Glucagon Inj 1 Mg Vial IM Q15MIN PRN BG <70, and no IV access Cefepime HCl 1 gm/ Sodium 50 mls @ 100 mls/hr 02/18/25 20:38 02/19/25 14:58 Chloride IV 02/25/25 20:37 100 mls/hr Q8HR TU Administration Azithromycin 500 mg/ Sodium 250 mls @ 250 mls/hr 02/19/25 12:00 02/19/25 13:29 Chloride IV 02/26/25 11:59 250 mls/hr QDAY TU Administration Heparin Sodium/Dextrose 25,000 unit in 250 mls @ 11.376 mls/hr 02/18/25 22:00 02/19/25 15:05 Heparin In D5w Ivpb IV 03/04/25 21:59 17 units/kg/hr .[id number] TU 12.893 mls/hr Titration Protocol 15 UNITS/KG/HR Insulin Human Lispro 0 unit 02/19/25 07:30 02/19/25 11:30 Insulin Lispro (Admelog) 1 Unit/0.01 Ml Unit SC 03/21/25 07:29 1 unit AC TU Administration Protocol Metoprolol Tartrate 25 mg 02/18/25 22:00 02/19/25 14:56 Metoprolol Tartrate 25 Mg Tablet PO 03/20/25 21:59 25 mg TID TU Administration Ondansetron HCl 4 mg 02/18/25 20:28 Ondansetron Inj 2 Mg/Ml Inj 2 Ml IVP 03/20/25 20:27 Q6H PRN NAUSEA OR VOMITING Protocol Sennosides 1 tab 02/18/25 20:28 Senna Tablet PO 03/20/25 20:27 QDAY PRN constipation Protocol Plan 64M with new-onset A-fib, large right pleural effusion with pneumonia, hypertension, prediabetes #New-onset A-fib Stable, -rate-controlled with metoprolol -On heparin drip for anticoagulation ? continue monitoring APTT. -Echo ordered, pending. -TSH back normal at 2.75. -Continue telemetry. #Right pleural effusion with pneumonia -Await pleural studies and cytology from thoracentesis tomorrow. -order serum LDH, PTT and INR -CT chest showed Right base pneumonia, Moderate to large right pleural effusion. -Continue IV cefepime and azithromycin. -Infectious workup: cocci negative, aspergillus, AFB, and QuantiFERON pending. -Hold steroids due to possible fungal etiology. #TB rule out -Patient traveled to [place] in September around time symptoms started, reports one episode of hemoptysis in October but none since. -AFB and QuantiFERON pending to rule out TB. #Hypertension -Normotensive, resume home meds if appropriate once med rec confirmed. #Prediabetes -Glucose still elevated at 314, A1c 7.1. Continue sliding scale insulin. #Electrolytes -Phosphorus and magnesium repleted. Order repeat levels tomorrow to ensure normalization. #Hypertriglyceridemia -Triglycerides elevated at 268, LDL 63. -No immediate treatment warranted at this time -will continue to monitor Health Maintenance: Lines: PIV Diet: Cardiac, tolerating well Bowel: Senna PRN (no BM yet) GI prophylaxis: Not indicated DVT prophylaxis: Heparin drip for A-fib Dispo: Await pleural studies, cytology, echo, TB rule out; monitor for chest tube need. Code status: Full Let me know if you?d like a final SOAP version with this dropped in! Attending Provider Attestation/Addendum I, Franchesca Salmeron, DO, attest that I was physically present for the sigala portions of the service and evaluated the patient with the resident and I reviewed and discussed the case with the resident and agree with the resident's findings and plans of care as documented above Patient seen and eval this a.m. and daughter at bedside. They state that the patient has been treated for pneumonia for the past few months since September. Patient lost about 20 pounds and endorses having night sweats. He saw co founder and president yesterday and was recommended to come to the hospital for thoracentesis due to right-sided pleural effusion. Patient endorses some mild dullness in his right chest on deep inspiration. He endorses having a dry cough but previously had a productive cough in October per daughter. Patient denies any recent sick contacts and states that he is taken 2 weeks total of azithromycin. He also was recently in [place] during which he took erythromycin. Patient denies any improvement with antibiotics. Patient was never in the , but states that he was incarcerated for a few days over 20 years ago. Patient had a chest CT done yesterday showing a moderate to large right pleural effusion and right base pneumonia. CT chest was reviewed, effusion looks moderate, will obtain an ultrasound to assess if effusion is safe to do thoracentesis. Patient is otherwise comfortable on room air. He does endorse having dyspnea exertion. Suspect that patient may have a parapneumonic effusion that has been slowly developing. Daughter states at bedside that valley fever and TB were ruled out outpatient. Will follow-up with pleural studies if thoracentesis can be done. Will follow-up with ultrasound results. Patient remains on airborne precautions due to concern for TB. Will follow-up with QuantiFERON as well. There are pending pleural fluid studies, but patient did not have a thoracentesis done in the ED yesterday. May need to reorder studies when thoracentesis is done.
--- NOTE | 2025-02-19 16:14 | XR_ITS ---
Examination: Ultrasound right and left hemithoraces TECHNIQUE: Tellez scale sonographic images widened left hemithoraces Date and time: February 19, 2025, 1623 hours INDICATIONS: Difficulty breathing this week significant right pleural fluid on CT chest February 18, 2025 FINDINGS: Mild to moderate right pleural fluid, however lung surface is near the chest wall on all images No left pleural fluid IMPRESSION: Mild to moderate right pleural fluid, however, lung surface is near the chest wall on all images
[2025-02-19] MEDS: Heparin/D5w 25K 250 ML Ivpb 25,000 UNIT/250 ML BAG 12.893 UNIT IV (16:24)
[2025-02-19] MEDS: AMIODARONE 150 MG IVPB 150 MG/100 ML BAG 600 MG IV (16:24)
[2025-02-19] MEDS: AMIODARONE 360 MG IVPB 360 MG/200 ML BAG 33.333 MG IV (16:45)
--- NOTE | 2025-02-19 18:11 | ESCONSULT_ITS ---
<Statement entered by Deepa Gallegos MD - 02/20/25 18:51> I personally examined evaluated the patient for consultation report evaluated with the PGY 2 Dr. Roverto Chiu patient presented with A-fib RVR recommend amiodarone IV followed by oral and diltiazem supplement to reduce heart rate. Agree with the treatment plan recommendation as documented by PGY 2 HPI Data of Consult Requesting Physician: Rina Hollis MD Admitting Provider: Rina Hollis MD Attending Provider: Rina Hollis MD Primary Care Provider: Gee Bolanos Consult Narrative Reason for consult: New onset Afib History of present illness: Patient is alutiiq [place] Islander speaker, but able to understand and communicate in [place]. A 64-year-old male with significant past medical history of hypertension, diabetes, recurrent episode of respiratory tract infection and antibiotic usage presented to the hospital with chief complaints of palpitations. Patient reported that he started having recurrent episodes of pneumonia since September and every time he gets treated with oral antibiotics, azithromycin. Reported that he has associated weight loss, night sweats with generalized weakness. Endorsed that he had history of palpitations last year for which he was supposed to go to geographic information system surveyor but due to insurance issues he could not visit the geographic information system surveyor. Complained of on and off episodes of palpitations without any history of chest pain, shortness of breath, syncope, pedal edema, orthopnea, PND. Patient is able to do his routine daily activities without any difficulty. Patient has a recent travel history in September to [place] and also notes that he visited hospital over there for respiratory tract infection. 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 HEENT: Normocephalic, atraumatic, mucous membranes moist. Heart: IRRegular rate and rhythm, no murmurs. Lungs: Clear to auscultation with no wheezing or crackles. Decreased breath sounds on right basal area Abdomen: Soft, nondistended, nontender, positive bowel sounds. ?No guarding or rebound tenderness. Neurologic: Alert and oriented x3, no gross neurological deficit, and patient able to move all 4 extremities. Extremities: No edema. Skin: No rash or ecchymoses. Results Labs 02/19/25 04:25 02/19/25 04: Labs: Short CBC 02/18/25 02/19/25 Range/Units 18:03 04: WBC 11.6 H 11.6 H (3.8-10.6) Thou/mm3 Hgb 15.3 14.5 (13.5-16.0) g/dL Hct 45.9 42.9 (41.0-53.0) % Plt Count 354 312 D (140-440) Thou/mm3 BMP 02/18/25 02/19/25 18:03 04:25 Sodium 139 140 Potassium 4.0 3.7 Chloride 102 102 Carbon Dioxide 29.0 28.4 BUN 16 14 Creatinine 1.0 0.8 Glucose 253 H 314 H D Calcium 9.4 8.6 Cardiac Enzymes 02/18/25 Range/Units 18:03 Troponin I < 0.020 (0.0-0.045) ng/mL Liver Function 02/18/25 02/19/25 Range/Units 18:03 04: Total Bilirubin 0.4 0.3 (0.3-1.2) mg/dL AST 21 18 (0-34) U/L ALT 40 32 (10-49) U/L Alkaline Phosphatase 126 H 136 H (46-116) U/L Albumin 4.3 3.6 D (3.4-4.8) gm/dL Quality Measures Quality Measures none Medications Home Medications and Allergies Home Medications ?Medication ?Instructions ?Recorded ?Confirmed ?Type Amlodipine Besylate 10 mg PO QDAY ##30 06/14/16 02/19/25 History Aspirin (Adult Low Dose Aspirin) 81 mg PO QDAY ##30 02/19/25 History apixaban 5 mg tablet (Eliquis) mg 02/19/25 History Allergies Allergy/AdvReac Type Severity Reaction Status Date / Time caffeine Allergy Severe DIFFICULTY Verified 02/18/25 17:10 BREATHING/ TACHYCARDIA ibuprofen Allergy Severe SWELLING Verified 02/18/25 17:10 TO MOUTH AND LIPS Penicillins Allergy Mild Rash Verified 02/18/25 17:10 Visit Medications Acetaminophen (Acetaminophen 325 Mg Tablet) 650 mg PO Q6H PRN PRN Reason: Pain 1-3 and/or Fever >100.1 Stop: 03/20/25 20:27 Dextrose (Dextrose 50%-Water Inj 50 Ml Syringe) 25 ml IV Q15MIN PRN PRN Reason: BG 50-70 responsive npo pt Stop: 03/20/25 21:30 Dextrose (Dextrose 50%-Water Inj 50 Ml Syringe) 50 ml IV Q15MIN PRN PRN Reason: BG <50 OR BG <70 & pt unresponsive Stop: 03/20/25 21:30 Glucagon (Glucagon Inj 1 Mg Vial) 1 mg IM Q15MIN PRN PRN Reason: BG <70, and no IV access Cefepime HCl 1 gm/ Sodium (Chloride) 50 mls @ 100 mls/hr IV Q8HR [facility] Stop: 02/25/25 20:37 Last Admin: 02/19/25 14:58 Dose: 100 mls/hr Azithromycin 500 mg/ Sodium (Chloride) 250 mls @ 250 mls/hr IV QDAY [facility] Stop: 02/26/25 11:59 Last Admin: 02/19/25 13:29 Dose: 250 mls/hr Heparin Sodium/Dextrose (Heparin In D5w Ivpb) 25,000 unit in 250 mls @ 11.376 mls/hr IV .[id number] [facility]; Protocol Stop: 03/04/25 21:59 Last Admin: 02/19/25 16:24 Dose: 17 units/kg/hr, 12.893 mls/hr Amiodarone HCl/Dextrose (Nexterone Ivpb) 360 mg in 200 mls @ 33.333 mls/hr IV .Q6H ONE Stop: 02/19/25 21:44 Last Admin: 02/19/25 16:45 Dose: 33.333 mls/hr Amiodarone HCl/Dextrose (Nexterone Ivpb) 360 mg in 200 mls @ 16.667 mls/hr IV .Q12H [facility] Stop: 02/20/25 21:44 Insulin Human Lispro (Insulin Lispro (Admelog) 1 Unit/0.01 Ml Unit) 0 unit SC AC TU; Protocol Stop: 03/21/25 07:29 Last Admin: 02/19/25 16:56 Dose: 1 unit Metoprolol Tartrate (Metoprolol Tartrate 25 Mg Tablet) 25 mg PO TID [facility] Stop: 03/20/25 21:59 Last Admin: 02/19/25 14:56 Dose: 25 mg Ondansetron HCl (Ondansetron Inj 2 Mg/Ml Inj 2 Ml) 4 mg IVP Q6H PRN; Protocol PRN Reason: NAUSEA OR VOMITING Stop: 03/20/25 20:27 Sennosides (Senna Tablet) 1 tab PO QDAY PRN; Protocol PRN Reason: constipation Stop: 03/20/25 20:27 Discontinued Medications Alprazolam (Alprazolam 0.25 Mg Tablet) 0.25 mg PO X1 ONE Stop: 02/19/25 18:07 Diltiazem HCl (Diltiazem Inj 5 Mg/Ml Vial 5 Ml) 15 mg IV X1 ONE Stop: 02/18/25 19:44 Last Admin: 02/18/25 21:49 Dose: Not Given Diltiazem HCl (Diltiazem Inj 5 Mg/Ml Vial 5 Ml) 20 mg IV X1 ONE Stop: 02/18/25 20:17 Last Admin: 02/18/25 20:33 Dose: 20 mg Heparin Sodium (Porcine) (Heparin Sod Inj 5000 Unit/Ml Vial) 5,000 unit SC Q12HR [facility] Stop: 03/04/25 20:59 Last Admin: 02/18/25 21:46 Dose: 5,000 unit Heparin Sodium (Porcine) (Heparin Sod Inj 5000 Unit/Ml Vial) 5,950 unit 80 unit/kg (5950 unit) IV X1 ONE; Protocol Stop: 02/18/25 22:01 Last Admin: 02/18/25 23:22 Dose: Not Given Heparin Sodium (Porcine) (Heparin Sod Inj 5000 Unit/Ml Vial) 4,000 unit IV X1 ONE; Protocol Stop: 02/18/25 22:06 Last Admin: 02/18/25 23:22 Dose: Not Given Heparin Sodium (Porcine) (Heparin Sod Inj 5000 Unit/Ml Vial) 3,000 unit IVP X1 ONE Stop: 02/19/25 08:03 Last Admin: 02/19/25 08:10 Dose: 3,000 unit Sodium Chloride (Ns) 500 mls @ 999 mls/hr IV .Q31M ONE Stop: 02/18/25 21:01 Last Infusion: 02/18/25 22:21 Dose: Infused Azithromycin 500 mg/ Sodium (Chloride) 250 mls @ 250 mls/hr IV X1 ONE Stop: 02/18/25 23:14 Last Admin: 02/18/25 23:34 Dose: Not Given Magnesium Sulfate (Magnesium Sulfate Ivpb) 4 gm in 50 mls @ 12.5 mls/hr IV X1 ONE Stop: 02/19/25 09:32 Last Admin: 02/19/25 06:23 Dose: 12.5 mls/hr Amiodarone HCl/Dextrose (Nexterone Ivpb) 150 mg in 100 mls @ 600 mls/hr IV .Q10M ONE Stop: 02/19/25 15:54 Last Admin: 02/19/25 16:24 Dose: 600 mls/hr Potassium Phos/Sodium Phos (Naph,[facility] 1 Packet (1.5 Gm)) 1 packet PO X1 ONE Stop: 02/19/25 05:34 Last Admin: 02/19/25 06:22 Dose: 1 packet Sodium Chloride (Sodium Chloride Rt 10% 15 Ml Nebu) 5 ml INH X1 ONE Stop: 02/18/25 21:14 Last Admin: 02/18/25 21:44 Dose: 5 ml Sodium Chloride (Sodium Chloride Rt 10% 15 Ml Nebu) 5 ml INH X1 ONE Stop: 02/18/25 21:59 Assessment & Plan Plan A 64-year-old male with significant past medical history of hypertension, diabetes, recurrent episode of respiratory tract infection and antibiotic usage presented to the hospital with chief complaints of palpitations an cardiology is consulted for new onset atrial fibrillation with rapid ventricular rate # New onset atrial fibrillation with rapid ventricular rate - Patient had previous history of palpitations for which she was supposed to see a geographic information system surveyor in [place] but could not see due to insurance issues - Presented to the hospital with chief complaints of palpitations - Patient had history of 2 respiratory tract infections since September and got treated with outpatient antibiotics, azithromycin - Endorsed that he had weight loss of almost 20 pounds in the last 5 months - Atrial fibrillation could be due to underlying respiratory illness - Vitals at the time of admission are stable except for tachycardia - On physical examination, patient does not appear to be in heart failure - Chest x-ray showed right pleural effusion. EKG showed atrial fibrillation with rapid ventricular rate with no ST-T wave changes - TSH is within normal limits, triglycerides 268, HDL 25 - [id number] or is 2 and has bled score is 0 Plan - Patient was given 1 dose of IV diltiazem 20 Mg push in the ED - Patient was started on amiodarone drip - Continue heparin drip for now, will transition to Eliquis tomorrow - 20 mEq of oral potassium is given - Recommended to keep potassium greater than 4 magnesium greater than 2 - Recommended to treat underlying pneumonia - Echo is ordered # History of hypertension - Blood pressure at the time of admission is 148/92 mmHg - Patient is taking amlodipine 10 mg once daily at home Plan - Blood pressure is within normal limits during the hospital stay - Recommended to continue to monitor blood pressures and start beta-waqas if needed #Right pleural effusion with superimposed pneumonia #Atypical pneumonia #Diabetes -Rest of the medical conditions to be treated per primary team Thank you for allowing us to participate in the care of the patient Patient plan of care was discussed with geographic information system surveyor, Dr. El Gunn, PGY2
--- NOTE | 2025-02-19 18:26 | ECHO_ITS ---
Transthoracic Echo Report Ht (in): 66 Wt (lb): 167 Exam Location: Echo Lab Status: Inpatient Income Tax Adjuster: Rocío Kat Indications: Procedure Performed: BP: 126 / 86 HR: 89 Technical Quality: Technically difficult study MEASUREMENTS (Male / Female) Normal Values 2D ECHO LV Diastolic Diameter PLAX 5.3 cm 4.2 - 5.9 / 3.9 - 5.3 cm LV Systolic Diameter PLAX 3.9 cm IVS Diastolic Thickness 0.9 cm 0.6 - 1.0 / 0.6 - 0.9 cm LVPW Diastolic Thickness 1.0 cm 0.6 - 1.0 / 0.6 - 0.9 cm LV Relative Wall Thickness 0.4 LVOT Diameter 2.1 cm Aortic Root Diameter 3.4 cm LA Systolic Diameter LX 4.0 cm 3.0 - 4.0 / 2.7 - 3.8 cm LV Ejection Fraction MOD BP 49.3 % >= 55 % LV Cardiac Index MOD BP 2410.2 cm?/min?m? LV Ejection Fraction MOD 4C 49.8 % LV Cardiac Index MOD 4C 2762.6 cm?/min?m? LV Ejection Fraction 4C AL 53.6 % LV Cardiac Index 4C AL 3091.1 cm?/min?m? LV Ejection Fraction MOD 2C 48.1 % LV Cardiac Index MOD 2C 2071.9 cm?/min?m? LV Ejection Fraction 2C AL 49.3 % LV Cardiac Index 2C AL 2204.3 cm?/min?m? LA Volume Index 32.4 cm?/m? 16 - 28 cm?/m? M-MODE Aortic Root Diameter MM 3.0 cm LA Systolic Diameter MM 4.3 cm LA Ao Ratio MM 1.4 AV Cusp Separation MM 2.0 cm DOPPLER AV Peak Velocity 131.0 cm/s AV Peak Gradient 6.9 mmHg AV Mean Gradient 4.0 mmHg AV Velocity Time Integral 18.9 cm AI Peak Velocity 208.0 cm/s AI Peak Gradient 17.3 mmHg AI Pressure Half Time 1413.5 ms LVOT Peak Velocity 85.7 cm/s LVOT Peak Gradient 2.9 mmHg LVOT Velocity Time Integral 17.6 cm LVOT Cardiac Index 2864.1 cm?/min?m? AV Area Cont Eq vti 3.2 cm? AV Area Cont Eq pk 2.3 cm? MR Peak Velocity 516.0 cm/s MR Peak Gradient 106.5 mmHg TR Peak Velocity 253.7 cm/s TR Peak Gradient 25.7 mmHg FINDINGS Left Ventricle Normal left ventricular size, wall thickness, systolic function with no obvious regional wall motion abnormalities. The ejection fraction is visually estimated at 55-60% Right Ventricle The right ventricle is normal in size and systolic function. The estimated right ventricular systolic pressure, 28 mmHg. RAP 5. Left Atrium The left atrium is normal by two-dimensional, color flow and Doppler imaging with no structural abnormalities, no thrombus formation present. Right Atrium The right atrium is normal by two-dimensional imaging, color flow and Doppler imaging with no structural abnormalities, no thrombus formation present. Atrial Septum The interatrial septum appears normal with no evidence of a shunt. Aorta The aorta is normal by two-dimensional, color flow and Doppler interrogation. Mitral Valve The mitral valve is normal by two-dimensional, color flow and Doppler interrogation. Moderate mitral regurgitation. Aortic Valve The aortic valve is trileaflet and normal by two-dimensional, color flow and Doppler interrogation. Mild aortic valve regurgitation. Tricuspid Valve The tricuspid valve is normal by two-dimensional, color flow and Doppler interrogation. There is mild tricuspid valve regurgitation. Pulmonic Valve The pulmonic valve is not well visualized. There is no significant pulmonic valve regurgitation. Vessels The pulmonary artery appears normal. The inferior vena cava pulmonary and hepatic veins appear normal. Pericardium The pericardium is normal by two-dimensional imaging. There is no significant pericardial effusion. CONCLUSIONS Indication. New onset afib Normal LV size and wall thickness. Estimated EF at 55-60% The RV is normal in size and systolic function. The estimated RVSP, 28 mmHg. RAP 5. Moderate MR. Mild AI and TR. Jovita Camacho (Electronically Signed) Final Date: 21 February 2025 14:48
[2025-02-19 21:49] LABS: Partial Thromboplastin Time 47.9 Seconds (22.0-36.0)
[2025-02-19] MEDS: HEPARIN SOD INJ 5000 UNIT/ML VIAL 3000 UNIT IV (22:49)
[2025-02-19] MEDS: AMIODARONE 360 MG IVPB 360 MG/200 ML BAG 16.667 MG IV (23:32)
[2025-02-20] VITALS (13 sets, daily range): BP systolic 112–134; BP diastolic 61–93; PULSE 50–100; RESP 17–27; TEMP 36.3–37.3; O2SAT 93–96; BMI 26.9
--- NOTE | 2025-02-20 05:41 | PC.NURSE ---
RT made aware re order of afb sputum Q8hrs x3.
[2025-02-20 05:43] LABS: Basophils # (Auto) 0.0 Thou/mm3 (0.0-0.2); Basophils % (Auto) 0 % (0-2.5); Eosinophils # (Auto) 0.2 Thou/mm3 (0.0-0.5); Eosinophils % (Auto) 2 % (0-10); Hematocrit 42.0 % (41.0-53.0); Hemoglobin 13.8 g/dL (13.5-16.0); Immature Granulocytes Auto 0.09 Thou/mm3 (0.00-0.00); Lymphocytes # (Auto) 2.8 Thou/mm3 (1.0-4.8); Lymphocytes % (Auto) 23 % (10-50); Mean Corpuscular HGB Conc 32.9 g/dl (31.0-37.0); Mean Corpuscular Hemoglobin 25.9 pg (25.0-35.0); Mean Corpuscular Volume 79 fL (80-100); Monocytes # (Auto) 1.0 Thou/mm3 (0.0-0.8); Monocytes % (Auto) 9 % (0-12); Neutrophils # (Auto) 7.8 Thou/mm3 (1.8-7.7); Neutrophils % (Auto) 65 % (37-80); Nucleated Red Blood Cell # 0.00 Thou/mm3 (0.00-0.00); Nucleated Red Blood Cell % 0 /100 WBC (0); Platelet Count 314 Thou/mm3 (140-440); RDW Standard Deviation 39.4 fL (35.1-43.9); Red Blood Count 5.32 Miln/mm3 (4.50-5.90); White Blood Count 12.0 Thou/mm3 (3.8-10.6)
--- NOTE | 2025-02-20 06:00 | PC.NURSE ---
heparin drip stopped at 06:00am per md order.
[2025-02-20 06:20] LABS: INR 1.1 (0.9-1.3); Partial Thromboplastin Time 80.8 Seconds (22.0-36.0); Prothrombin Time 12.1 Seconds (9.0-12.2)
[2025-02-20 06:26] LABS: Alanine Aminotransferase 30 U/L (10-49); Albumin, Serum 3.5 gm/dL (3.4-4.8); Albumin/Globulin Ratio 1.3 (1.2-2.2); Alkaline Phosphatase 96 U/L (46-116); Anion Gap 13 (7-16); Aspartate Amino Transferase 19 U/L (0-34); BUN/Creatinine Ratio 16 Ratio (12-20); Bilirubin,Total 0.3 mg/dL (0.3-1.2); Blood Urea Nitrogen 11 mg/dL (9-23); Calcium 8.5 mg/dL (8.3-10.6); Calcium (Corrected) 8.9 mg/dL (8.5-10.1); Carbon Dioxide 26.3 mMol/L (20.0-31.0); Chloride 102 mMol/L (98-107); Creatinine (Component) 0.7 mg/dL (0.6-1.3); Estimated Creatinine Clearance 97.5 mL/min (>60); Globulin 2.7 gm/dL (2.3-3.5); Glucose 168 mg/dL (74-106); LDH (Lactate Dehydrogenase) 158 U/L (120-246); Magnesium 1.7 mg/dL (1.6-2.6); Osmolality,Calculated 284 (275-295); Phosphorous 3.2 mg/dL (2.4-5.1); Potassium 3.7 mMol/L (3.4-5.1); Sodium 141 mMol/L (136-145); Total Protein 6.2 gm/dL (5.7-8.2); eGFR > 60 See Note
[2025-02-20] MEDS: METOPROLOL TARTRATE 25 MG TABLET PO ×3 (06:27→22:20)
[2025-02-20] MEDS: CEFEPIME INJ 1 GM in SODIUM CHLORIDE 0.9% (Popper) 50 ML IV ×3 (06:27→22:20)
[2025-02-20] MEDS: INSULIN LISPRO (AdmeLOG) 1 UNIT/0.01 ML UNIT SC ×2 (07:57→11:43)
[2025-02-20 09:37] LABS: Cocci Serology, IgG Negative (Negative)
[2025-02-20] MEDS: Magnesium Sulfate 4 GM Ivpb 4 GM/50 ML BAG IV (09:47)
[2025-02-20] MEDS: AMIODARONE 360 MG IVPB 360 MG/200 ML BAG 16.667 MG IV (10:51)
--- NOTE | 2025-02-20 13:05 | PD.PUCONS ---
HPI Pulmonology Consult Data of Consult Requesting Physician: Rina Hollis MD Primary Care Provider: Gee Bolanos Consult Narrative History of present illness: Patient is a 64 year old male with PMH of hypertension and prediabetes with recent 5 month course of recurrent pneumonia. Patient given multiple regimens of antibiotics. Admitted now with recurrence and failure of OP regimen. He also noted to have significant cycle of night sweats and fever. Now resolved with antibiotics. Patient isolated for TB exclusion, reportedly negative OP workup. PCP did recently refer to credit specialist in [place]. Sent by them to hospital for possible empyema. Loculated right pleural effusion unamenable to thoracentesis by IR yesterday. Serial evaluation today shows significantly loculated effusoin without large enough pocket to perform bedside procedure as well. Patient is willing to consider thoracic surgeyr evaluation as well. cc:: cc: Rina Hollis MD Review of Systems Review of Systems Narrative Review of Systems: Pertinent ROS completed with significant findings included in HPI above. Past Medical History Past Medical History Comments PMH COMMENT: Pertinent PMH, PSH, Fam Hx, and Social hx reviewed. Meds Home Medications and Allergies Home Medications ?Medication ?Instructions ?Recorded ?Confirmed ?Type Amlodipine Besylate 10 mg PO QDAY ##30 06/14/16 02/19/25 History Aspirin (Adult Low Dose Aspirin) 81 mg PO QDAY ##30 06/14/16 02/19/25 History metoprolol succinate 25 mg 25 mg PO DAILY 02/20/25 02/20/25 History tablet,extended release 24 hr Allergies Allergy/AdvReac Type Severity Reaction Status Date / Time amoxicillin Allergy Severe Swelling Verified 02/20/25 07:05 of the Eye caffeine Allergy Severe DIFFICULTY Verified 02/18/25 17:10 BREATHING/ TACHYCARDIA ibuprofen Allergy Severe SWELLING Verified 02/18/25 17:10 TO MOUTH AND LIPS levofloxacin Allergy Intermediate Nightmare Verified 02/22/25 10:59 Penicillins Allergy Mild Rash Verified 02/18/25 17:10 Exam Vital Signs Temp Pulse Resp BP Pulse Ox O2 Del Method 98.4 F 75 14 116/79 95 Room Air 02/21/25 08:00 02/21/25 08:30 02/21/25 08:00 02/21/25 08:30 02/21/25 08:00 02/21/25 08:00 Narrative Exam GEN: NAD, AAOX3, italian speaking HEENT: EOMI, MMM NECK: No JVD CVS: s1/S2+ RRR PULM: Absent breath sounds at right base, otherwise clear ABD: soft/ NT/ND, BS+ EXT: no pedal edema, cyanosis or clubbing NEURO: Nonfocal on gross examination PSYCH: insightful historian, normal mood and affect Physical Exam Completion Physical Exam Complete?: Yes Results - Software Development Analyst Labs 02/22/25 05:47 02/22/25 05:47 Labs: Short CBC 02/21/25 Range/Units 05:54 WBC 12.7 H (3.8-10.6) Thou/mm3 Hgb 14.0 (13.5-16.0) g/dL Hct 41.3 (41.0-53.0) % Plt Count 297 (140-440) Thou/mm3 BMP 02/21/25 05:54 Sodium 140 Potassium 4.2 D Chloride 105 Carbon Dioxide 28.0 BUN 12 Creatinine 0.9 Glucose 142 H Calcium 8.5 Liver Function 02/21/25 Range/Units 05:54 Total Bilirubin 0.5 (0.3-1.2) mg/dL AST 18 (0-34) U/L ALT 28 (10-49) U/L Alkaline Phosphatase 91 (46-116) U/L Albumin 3.4 (3.4-4.8) gm/dL Assessment & Plan Additional Plan Additional Plan: Chronic empyema RLL pneumonia Difficult to manage at our facility given limited resources Ultrasound at bedside without significant pocket for placement of catheter to attempt TPA/dornase, radiology can reasses son Saturday. Will follow up with [facility] at bedside tomorrow. Best to transfer to center with thoracic surgery services, could consider antibiotics with setup as outpatient but took him2.5 months to see pulmonary and this is likely the same with thoracic services as OP, unless we can ensure adequate follow up discharge would be difficult at this time The right lower lobe is likely to continue to have problems of recurrent infection, pseudomonas/ staph coverage to be maintained Significant component of bronchiectasis as well Continue empiric antibiotics for now with this in mind I remain available for any needs should they arise Provider Notation Provider Notation: Although this document has been carefully reviewed, there may still be some phonetic and other typographical errors. These errors are purely grammatical due to imperfections in the software program and should not be construed in any way to compromise the substance of the patient's medical care during this visit. Thank you for the opportunity and privilege in assisting you with this patient's care and management.
[2025-02-20 13:36] LABS: Cult AFB Sendout- Sputum* See Sep Rpt
--- NOTE | 2025-02-20 14:02 | ESPR_ITS ---
<Statement entered by Deepa Gallegos MD - 02/20/25 18:56> The patient is evaluated with the resident physician appears to be clinically stable but A-fib RVR amiodarone is not started yesterday we will start amiodarone today along with diltiazem for rate control appears to be clinically tolerating well patient also had TB rule out in the isolation room Documentation for date of: 02/20/25 Subjective Subjective Interval history: Patient is seen and examined at bedside No acute overnight events. Denies any new complaints. No further episodes of palpitation Patient is currently on amiodarone drip. Heparin drip is held in view of anticipated right pleural tap/thoracocentesis Vitals are stable. Patient is still in atrial fibrillation but heart rate is controlled, 90 to 100 bpm. Telemetry is reviewed Recommended to continue amiodarone drip for now, transition to oral amiodarone 200 Mg twice daily once the drip is done Heparin is on hold for now in view of anticipated procedure. Can restart Eliquis if the procedure is done. Later can discharge patient on Eliquis Exam Vital Signs Temp Pulse Resp BP Pulse Ox O2 Del Method 99.2 F 91 21 H 123/88 H 95 Room Air 02/20/25 12:00 02/20/25 12:00 02/20/25 12:00 02/20/25 12:00 02/20/25 12:00 02/20/25 12:00 Narrative Exam General: Awake. HEENT: Normocephalic, atraumatic, mucous membranes moist. Heart: IRRegular rate and rhythm, no murmurs. Lungs: Clear to auscultation with no wheezing or crackles. Decreased breath sounds on right basal area Abdomen: Soft, nondistended, nontender, positive bowel sounds. ?No guarding or rebound tenderness. Neurologic: Alert and oriented x3, no gross neurological deficit, and patient able to move all 4 extremities. Extremities: No edema. Skin: No rash or ecchymoses. Objective Labs 02/20/25 04:05 02/20/25 04:05 Labs: Laboratory Results - last 24 hr 02/19/25 02/19/25 02/19/25 04:25 13:40 21:15 WBC RBC Hgb Hct MCV MCH MCHC RDW Std Deviation Plt Count Neut % (Auto) Lymph % (Auto) [place] % (Auto) Eos % (Auto) Baso % (Auto) Neut # (Auto) Lymph # (Auto) [place] # (Auto) Eos # (Auto) Baso # (Auto) Immature Gran # (Auto) Absolute Nucleated RBC Immature Gran % Nucleated RBC % PT INR APTT 61.3 H D 47.9 H D Sodium Potassium Chloride Carbon Dioxide Anion Gap BUN Creatinine Estim Creat Clear Calc eGFR BUN/Creatinine Ratio Glucose Calculated Osmolality Calcium Corrected Calcium Phosphorus Magnesium Total Bilirubin AST ALT Alkaline Phosphatase Lactate Dehydrogenase Total Protein Albumin Globulin Albumin/Globulin Ratio Coccidioides IgG Ab Negative 02/20/25 04:05 WBC 12.0 H RBC 5.32 Hgb 13.8 Hct 42.0 MCV 79 L MCH 25.9 MCHC 32.9 RDW Std Deviation 39.4 Plt Count 314 Neut % (Auto) 65 Lymph % (Auto) 23 [place] % (Auto) 9 Eos % (Auto) 2 Baso % (Auto) 0 Neut # (Auto) 7.8 H Lymph # (Auto) 2.8 [place] # (Auto) 1.0 H Eos # (Auto) 0.2 Baso # (Auto) 0.0 Immature Gran # (Auto) 0.09 H Absolute Nucleated RBC 0.00 Immature Gran % 1 H Nucleated RBC % 0 PT 12.1 INR 1.1 APTT 80.8 H D Sodium 141 Potassium 3.7 Chloride 102 Carbon Dioxide 26.3 Anion Gap 13 BUN 11 Creatinine 0.7 Estim Creat Clear Calc 97.5 eGFR > 60 BUN/Creatinine Ratio 16 Glucose 168 H D Calculated Osmolality 284 Calcium 8.5 Corrected Calcium 8.9 Phosphorus 3.2 Magnesium 1.7 Total Bilirubin 0.3 AST 19 ALT 30 Alkaline Phosphatase 96 D Lactate Dehydrogenase 158 Total Protein 6.2 Albumin 3.5 Globulin 2.7 Albumin/Globulin Ratio 1.3 Coccidioides IgG Ab Quality Measures Quality Measures none Assessment & Plan Assessment Current Active Medications: Generic Name Dose Route Start Last Admin Trade Name Freq PRN Reason Stop Dose Admin Acetaminophen 650 mg 02/18/25 20:28 Acetaminophen 325 Mg Tablet PO 03/20/25 20:27 Q6H PRN Pain 1-3 and/or Fever >100.1 Amiodarone HCl 200 mg 02/20/25 22:00 Amiodarone Hcl 200 Mg Tablet PO 03/22/25 21:59 BID TU Dextrose 25 ml 02/18/25 21:31 Dextrose 50%-Water Inj 50 Ml Syringe IV 03/20/25 21:30 Q15MIN PRN BG 50-70 responsive npo pt Dextrose 50 ml 02/18/25 21:31 Dextrose 50%-Water Inj 50 Ml Syringe IV 03/20/25 21:30 Q15MIN PRN BG <50 OR BG <70 & pt unresponsive Doxycycline Hyclate 100 mg 02/20/25 13:45 Doxycycline 100 Mg Tablet PO 02/27/25 13:44 BID TU Glucagon 1 mg 02/18/25 21:31 Glucagon Inj 1 Mg Vial IM Q15MIN PRN BG <70, and no IV access Cefepime HCl 1 gm/ Sodium 50 mls @ 100 mls/hr 02/18/25 20:38 02/20/25 06:27 Chloride IV 02/25/25 20:37 100 mls/hr Q8HR TU Administration Heparin Sodium/Dextrose 25,000 unit in 250 mls @ 11.376 mls/hr 02/18/25 22:00 02/19/25 22:41 Heparin In D5w Ivpb IV 03/04/25 21:59 19 units/kg/hr .[id number] TU 14.41 mls/hr Titration Protocol 15 UNITS/KG/HR Amiodarone HCl/Dextrose 360 mg in 200 mls @ 16.667 mls/hr 02/19/25 21:45 02/20/25 10:51 Nexterone Ivpb IV 02/20/25 21:44 16.667 mls/hr .Q12H TU Administration Insulin Human Lispro 0 unit 02/19/25 07:30 02/20/25 11:43 Insulin Lispro (Admelog) 1 Unit/0.01 Ml Unit SC 03/21/25 07:29 2 unit AC TU Administration Protocol Metoprolol Tartrate 25 mg 02/18/25 22:00 02/20/25 06:27 Metoprolol Tartrate 25 Mg Tablet PO 03/20/25 21:59 25 mg TID TU Administration Ondansetron HCl 4 mg 02/18/25 20:28 Ondansetron Inj 2 Mg/Ml Inj 2 Ml IVP 03/20/25 20:27 Q6H PRN NAUSEA OR VOMITING Protocol Sennosides 1 tab 02/18/25 20:28 Senna Tablet PO 03/20/25 20:27 QDAY PRN constipation Protocol Plan A 64-year-old male with significant past medical history of hypertension, diabetes, recurrent episode of respiratory tract infection and antibiotic usage presented to the hospital with chief complaints of palpitations an cardiology is consulted for new onset atrial fibrillation with rapid ventricular rate # New onset atrial fibrillation with rapid ventricular rate - Patient had previous history of palpitations for which she was supposed to see a cupola tender helper in [place] but could not see due to insurance issues - Presented to the hospital with chief complaints of palpitations - Patient had history of 2 respiratory tract infections since September and got treated with outpatient antibiotics, azithromycin - Endorsed that he had weight loss of almost 20 pounds in the last 5 months - Atrial fibrillation could be due to underlying respiratory illness - Vitals at the time of admission are stable except for tachycardia - On physical examination, patient does not appear to be in heart failure - Chest x-ray showed right pleural effusion. EKG showed atrial fibrillation with rapid ventricular rate with no ST-T wave changes - TSH is within normal limits, triglycerides 268, HDL 25 - [id number] or is 2 [hypertension, diabetes mellitus] and has bled score is 0 Plan - Patient was given 1 dose of IV diltiazem 20 Mg push in the ED - Patient was started on amiodarone drip, recommended to continue amiodarone drip and transition to oral amiodarone 200 Mg twice daily once the drip is done - Heparin drip is held for now in view of anticipated thoracocentesis/pleural tap. Can start Eliquis 5 Mg twice daily once the procedure is done - Recommended to keep potassium greater than 4 magnesium greater than 2 - Recommended to treat underlying pneumonia - Echo is ordered # History of hypertension - Blood pressure at the time of admission is 148/92 mmHg - Patient is taking amlodipine 10 mg once daily at home Plan - Blood pressure is within normal limits during the hospital stay - Recommended to continue to monitor blood pressures and start beta-waqas if needed #Right pleural effusion with superimposed pneumonia #Atypical pneumonia #Diabetes -Rest of the medical conditions to be treated per primary team Thank you for allowing us to participate in the care of the patient Patient plan of care was discussed with cupola tender helper, Dr. El Gunn, PGY2
[2025-02-20] MEDS: DOXYCYCLINE 100 MG TABLET PO ×2 (14:11→22:20)
[2025-02-20 14:17] LABS: Misc Send Out* See Sep Rpt
--- NOTE | 2025-02-20 15:18 | PC.CC ---
Addendum entered by Lindsay Rouse RN 02/20/25 19:22: reported off to Charge Nurse Addendum entered by Lindsay Rouse RN 02/20/25 18:47: Attempted to go to [facility] website at [email or web address] which sent me to [employer] to get auth online but was unable to get access Addendum entered by Lindsay Rouse RN 02/20/25 18:31: Spoke to Kristin at [facility] who states we need verbal auth from insurance before proceeding with case and will have to call back in am Addendum entered by Lindsay Rouse RN 02/20/25 18:27: Juanita from [facility] called back and declined patient at this time due to capacity Addendum entered by Lindsay Rouse RN 02/20/25 17:50: Attempted to call multiple lines for [facility] all lines say to call back Saturday to Saturday, after hour line says to leave a message but it will not be checked until Saturday. Dr Siu made aware of delay, Dr. Siu confirms that transfer is not emergent but should not wait till Saturday. Will continue to try and transfer. Chart faxed to [facility], spoke to Juanita at [facility] Addendum entered by Lindsay Rouse RN 02/20/25 16:59: Attempted to call Sharon Villegas, the offices are closed and state to call during regular business hours Addendum entered by Lindsay Rouse RN 02/20/25 16:45: Padmini from [facility] called back and states that Sharon Villegas needs to be contacted Addendum entered by Lindsay Rouse RN 02/20/25 16:40: Chart faxed to [facility] Addendum entered by Lindsay Rouse RN 02/20/25 16:36: 1600- Maya called back and said insurance auth is needed prior to proceeding 1625-Spoke to Symone at [facility], she states the environmental issues instructor nurse will call back jl, chart needs to be faxed to [phone] Original Note: Made aware by Dr. Siu that patient needs to be transferred for [facility] for thoracic surgery for possible decortication due to loculated effusion, chart faxed to [facility], spoke to Marisol who states [facility] will call back after reviewing packet
--- NOTE | 2025-02-20 15:31 | PD.RESPRO ---
Documentation for date of: 02/20/25 Subjective Subjective Interval history: Patient was seen and examined at the bedside. No acute overnight events were reported. Patient stated that he has been feeling better and waiting for getting off isolation. Patient's family was also present at the bedside and they were informed that we are waiting on the lab results. Patient refused to take azithromycin therefore antibiotic was switched to doxycycline 100 mg twice daily along with cefepime. ICU team, coverage specialist Dr. Benites performed bedside ultrasound to evaluate pleural effusion and recommended the patient will need transfer to [facility] care facility with thoracic surgery as pleural fluid appears to be loculated hence requiring decortication of the lung most likely as well as possible placement of pigtail for pleural fluid drainage with dornase infusion. Transfer nurse was notified regarding transfer of the patient and she stated that patient will need insurance authorization as she spoke with [facility] worrell transfer nurse. Transfer nurse stated that they will try for tomorrow as well otherwise patient will likely get transferred out on Saturday when insurance companies will be working. Currently waiting on TB test, aspergillosis. Pleural fluid studies were ordered in anticipation to thoracentesis. Prelim blood cultures coming negative. Sputum cultures are mixed. Labs were showing improvement in white count. Kidney function remained stable. Electrolytes unremarkable. All labs and orders were reviewed. Pending transfer. Exam Vital Signs Temp Pulse Resp BP Pulse Ox O2 Del Method 99.2 F 90 21 H 122/80 95 Room Air 02/20/25 12:00 02/20/25 14:10 02/20/25 12:00 02/20/25 14:10 02/20/25 12:00 02/20/25 12:00 Narrative Exam GENERAL APPEARANCE: Patient is AO x 3 well-appearing male in no acute distress. Saturating well on room air. HEENT: NC, AT. MMM. EOMI, clear conjunctiva, oropharynx clear. NECK: Supple without lymphadenopathy. No stiffness or restricted ROM. HEART: Irregular rate and irregular rhythm, normal S1/S2, no m/r/g LUNGS: Decreased breath sounds on right side of the lung. ABDOMEN: Soft, nontender, nondistended with good bowel sounds heard. BACK: No CVAT, no obvious deformity. EXTREMITIES: Without cyanosis, clubbing or edema. NEUROLOGICAL: Grossly nonfocal. Alert and oriented, moving all 4 extremities. CN not formally tested but appear grossly intact. Observed to ambulate with normal gait. Skin: Warm and dry without any rash. Psych: Appropriate mood and affect Objective Labs 02/21/25 05:54 02/21/25 05:54 Labs: Laboratory Results - last 24 hr 02/19/25 02/19/25 02/20/25 04:25 21:15 04:05 WBC 12.0 H RBC 5.32 Hgb 13.8 Hct 42.0 MCV 79 L MCH 25.9 MCHC 32.9 RDW Std Deviation 39.4 Plt Count 314 Neut % (Auto) 65 Lymph % (Auto) 23 [place] % (Auto) 9 Eos % (Auto) 2 Baso % (Auto) 0 Neut # (Auto) 7.8 H Lymph # (Auto) 2.8 [place] # (Auto) 1.0 H Eos # (Auto) 0.2 Baso # (Auto) 0.0 Immature Gran # (Auto) 0.09 H Absolute Nucleated RBC 0.00 Immature Gran % 1 H Nucleated RBC % 0 PT 12.1 INR 1.1 APTT 47.9 H D 80.8 H D Sodium 141 Potassium 3.7 Chloride 102 Carbon Dioxide 26.3 Anion Gap 13 BUN 11 Creatinine 0.7 Estim Creat Clear Calc 97.5 eGFR > 60 BUN/Creatinine Ratio 16 Glucose 168 H D Calculated Osmolality 284 Calcium 8.5 Corrected Calcium 8.9 Phosphorus 3.2 Magnesium 1.7 Total Bilirubin 0.3 AST 19 ALT 30 Alkaline Phosphatase 96 D Lactate Dehydrogenase 158 Total Protein 6.2 Albumin 3.5 Globulin 2.7 Albumin/Globulin Ratio 1.3 Coccidioides IgG Ab Negative Quality Measures Quality Measures VTE prophylaxis (heparin drip ) Assessment & Plan Assessment Current Active Medications: Generic Name Dose Route Start Last Admin Trade Name Freq PRN Reason Stop Dose Admin Acetaminophen 650 mg 02/18/25 20:28 Acetaminophen 325 Mg Tablet PO 03/20/25 20:27 Q6H PRN Pain 1-3 and/or Fever >100.1 Amiodarone HCl 200 mg 02/20/25 22:00 Amiodarone Hcl 200 Mg Tablet PO 03/22/25 21:59 BID TU Dextrose 25 ml 02/18/25 21:31 Dextrose 50%-Water Inj 50 Ml Syringe IV 03/20/25 21:30 Q15MIN PRN BG 50-70 responsive npo pt Dextrose 50 ml 02/18/25 21:31 Dextrose 50%-Water Inj 50 Ml Syringe IV 03/20/25 21:30 Q15MIN PRN BG <50 OR BG <70 & pt unresponsive Doxycycline Hyclate 100 mg 02/20/25 13:45 02/20/25 14:11 Doxycycline 100 Mg Tablet PO 02/27/25 13:44 100 mg BID TU Administration Glucagon 1 mg 02/18/25 21:31 Glucagon Inj 1 Mg Vial IM Q15MIN PRN BG <70, and no IV access Cefepime HCl 1 gm/ Sodium 50 mls @ 100 mls/hr 02/18/25 20:38 02/20/25 14:11 Chloride IV 02/25/25 20:37 100 mls/hr Q8HR TU Administration Heparin Sodium/Dextrose 25,000 unit in 250 mls @ 11.376 mls/hr 02/18/25 22:00 02/19/25 22:41 Heparin In D5w Ivpb IV 03/04/25 21:59 19 units/kg/hr .[id number] TU 14.41 mls/hr Titration Protocol 15 UNITS/KG/HR Amiodarone HCl/Dextrose 360 mg in 200 mls @ 16.667 mls/hr 02/19/25 21:45 02/20/25 10:51 Nexterone Ivpb IV 02/20/25 21:44 16.667 mls/hr .Q12H TU Administration Insulin Human Lispro 0 unit 02/19/25 07:30 02/20/25 11:43 Insulin Lispro (Admelog) 1 Unit/0.01 Ml Unit SC 03/21/25 07:29 2 unit AC TU Administration Protocol Metoprolol Tartrate 25 mg 02/18/25 22:00 02/20/25 14:10 Metoprolol Tartrate 25 Mg Tablet PO 03/20/25 21:59 25 mg TID TU Administration Ondansetron HCl 4 mg 02/18/25 20:28 Ondansetron Inj 2 Mg/Ml Inj 2 Ml IVP 03/20/25 20:27 Q6H PRN NAUSEA OR VOMITING Protocol Sennosides 1 tab 02/18/25 20:28 Senna Tablet PO 03/20/25 20:27 QDAY PRN constipation Protocol Plan 64M with new-onset A-fib, large right pleural effusion with pneumonia, hypertension, prediabetes. #Acute resp distress #Right LOCULATED pleural effusion with pneumonia -Infectious workup: cocci negative, aspergillus, AFB, and QuantiFERON pending. -CT chest showed Right base pneumonia, Moderate to large right pleural effusion. Plan -Plan to transfer patient for decortication of lung due to loculated Rt sided pleural effusion and requirement of thoracic surgeon or PIG tail placement for drainage of fluid with dornase -transfer process pending -no plan for thoracentesis -Continue IV cefepime and Doxycycline. DC azithromycin -Hold steroids due to possible fungal etiology. #New-onset A-fib,rate controlled -Rate-controlled -[id number]: 2 Plan -Cont with metoprolol 25 mg BID -On heparin drip for anticoagulation ? continue monitoring APTT. -Echo ordered, pending. -TSH back normal at 2.75. -Continue telemetry. #TB rule out -Patient traveled to [place] in September around time symptoms started, reports one episode of hemoptysis in October but none since. -AFB and QuantiFERON pending to rule out TB. #Hypertension -Normotensive, resume home meds if appropriate once med rec confirmed. #Prediabetes -Glucose still elevated at 314, A1c 7.1. Plan -Continue sliding scale insulin. -ISS -Hypoglycemia protocol in place #Electrolytes -Phosphorus and magnesium repleted. Order repeat levels tomorrow to ensure normalization. #Hypertriglyceridemia -Triglycerides elevated at 268, LDL 63. -No immediate treatment warranted at this time Plan -will continue to monitor Health Maintenance: Lines: PIV Diet: Cardiac, tolerating well Bowel: Senna PRN GI prophylaxis: Not indicated DVT prophylaxis: Heparin drip for A-fib Dispo: Await pleural studies, cytology, echo, TB rule out. Pending transfer Code status: Full code Patient was seen and discussed with attending Physician,Dr Jaron Siu MD PGY-3 Attending Provider Attestation/Addendum I, Franchesca Salmeron, DO, attest that I was physically present for the sigala portions of the service and evaluated the patient with the resident and I reviewed and discussed the case with the resident and agree with the resident's findings and plans of care as documented above Patient seen and evaluated this AM. He states he is doing well and denies any shortness of breath or chest pain. HR is now sinus rhythm. Case discussed with pulmonology who has done bedside ultrasound. Patient found to have significantly loculated effusion in right lower chest, minimal fluid to be tapped. Recommends for IR to perform CT-guided chest tube placement in largest pocket found for potential intrapleural fibrinolysis. Otherwise, patient would need a thoracic surgery evaluation for possible VATS/ decortication. Will continue with IV abx at this time. Patient is undergoing rule out of TB and valley fever. Patient states he had been ruled out outpatient by his PCP Dr. Segal. Will obtain records from PCP when office is open. Will restart AC as thorascentesis was not possible.
--- NOTE | 2025-02-20 15:31 | PD.RESDS ---
Planned Discharge Date 02/20/25 DS: Providers Provider Date of admission: 02/18/25 20:28 Primary care physician: Gee Bolanos Admitting Provider: Rina Hollis MD Attending Provider on Admission: Rina Hollis MD Consults: 02/18/25 20:14 Consult to Cardiology Stat Comment: Consulting Provider: Deepa Gallegos 02/19/25 12:25 Referral Infection Control Routine Comment: Instructions: TB rule out Reason for Infection Control Referral: TB, MENGI, HEP, MRSA,CDIF [facility] Referral - Knowledge Deficit Routine Comment: Positive screening for knowledge deficit needs. Attending Provider on DC: Tanvir Siu MD Discharging Provider: Tanvir Siu MD Hospital Course Hospital Course Hospital course: Patient is seen and examined at bedside No acute overnight events. Denies any new complaints. No further episodes of palpitation Patient is currently on amiodarone drip. Heparin drip is held in view of anticipated right pleural tap/thoracocentesis Vitals are stable. Patient is still in atrial fibrillation but heart rate is controlled, 90 to 100 bpm. Telemetry is reviewed Recommended to continue amiodarone drip for now, transition to oral amiodarone 200 Mg twice daily once the drip is done Heparin is on hold for now in view of anticipated procedure. Can restart Eliquis if the procedure is done. Later can discharge patient on Eliquis Time Spent with Patient Time attestation: Total time spent providing and/or coordinating discharge services: Exam Vital Signs Temp Pulse Resp BP Pulse Ox O2 Del Method 99.2 F 90 21 H 122/80 95 Room Air 02/20/25 12:00 02/20/25 14:10 02/20/25 12:00 02/20/25 14:10 02/20/25 12:00 02/20/25 12:00 Discharge Plan Prescriptions/Referrals Prescriptions/Med Rec: No Action Amlodipine Besylate 10 MG tablet 10 mg PO QDAY Qty: 30 Aspirin (Adult Low Dose Aspirin) 81 MG TABLET.DR 81 mg PO QDAY Qty: 30 cyclobenzaprine 10 mg tablet 10 mg PO TID PRN (Reason: muscle spasm) Qty: 30 0RF Eliquis 5 mg tablet Patient Comments: patient doesn't know dose or frequency Referrals: Gee Segal [Primary Care Provider] - Patient/Caregiver Discharge Instructions Print Language: Kuwaiti
[2025-02-20] MEDS: Heparin/D5w 25K 250 ML Ivpb 25,000 UNIT/250 ML BAG 14.41 UNIT IV (18:07)
[2025-02-20] MEDS: AMIODARONE HCL 200 MG TABLET PO (22:20)
[2025-02-21] VITALS (9 sets, daily range): BP systolic 116–134; BP diastolic 78–91; PULSE 74–104; RESP 13–28; TEMP 36.1–36.9; O2SAT 90–96
[2025-02-21 01:28] LABS: Partial Thromboplastin Time 49.4 Seconds (22.0-36.0)
[2025-02-21] MEDS: HEPARIN SOD INJ 5000 UNIT/ML VIAL 3050 UNIT IVP (02:00)
[2025-02-21] MEDS: METOPROLOL TARTRATE 25 MG TABLET PO (05:27)
[2025-02-21] MEDS: CEFEPIME INJ 1 GM in SODIUM CHLORIDE 0.9% (Popper) 50 ML IV (05:29)
[2025-02-21 06:19] LABS: Basophils # (Auto) 0.0 Thou/mm3 (0.0-0.2); Basophils % (Auto) 0 % (0-2.5); Eosinophils # (Auto) 0.3 Thou/mm3 (0.0-0.5); Eosinophils % (Auto) 2 % (0-10); Hematocrit 41.3 % (41.0-53.0); Hemoglobin 14.0 g/dL (13.5-16.0); Immature Granulocytes Auto 0.10 Thou/mm3 (0.00-0.00); Lymphocytes # (Auto) 2.6 Thou/mm3 (1.0-4.8); Lymphocytes % (Auto) 21 % (10-50); Mean Corpuscular HGB Conc 33.9 g/dl (31.0-37.0); Mean Corpuscular Hemoglobin 26.6 pg (25.0-35.0); Mean Corpuscular Volume 79 fL (80-100); Monocytes # (Auto) 1.0 Thou/mm3 (0.0-0.8); Monocytes % (Auto) 8 % (0-12); Neutrophils # (Auto) 8.7 Thou/mm3 (1.8-7.7); Neutrophils % (Auto) 68 % (37-80); Nucleated Red Blood Cell # 0.00 Thou/mm3 (0.00-0.00); Nucleated Red Blood Cell % 0 /100 WBC (0); Platelet Count 297 Thou/mm3 (140-440); RDW Standard Deviation 38.9 fL (35.1-43.9); Red Blood Count 5.26 Miln/mm3 (4.50-5.90); White Blood Count 12.7 Thou/mm3 (3.8-10.6)
[2025-02-21 06:53] LABS: Alanine Aminotransferase 28 U/L (10-49); Albumin, Serum 3.4 gm/dL (3.4-4.8); Albumin/Globulin Ratio 1.2 (1.2-2.2); Alkaline Phosphatase 91 U/L (46-116); Anion Gap 7 (7-16); Aspartate Amino Transferase 18 U/L (0-34); BUN/Creatinine Ratio 13 Ratio (12-20); Bilirubin,Total 0.5 mg/dL (0.3-1.2); Blood Urea Nitrogen 12 mg/dL (9-23); Calcium 8.5 mg/dL (8.3-10.6); Calcium (Corrected) 9.0 mg/dL (8.5-10.1); Carbon Dioxide 28.0 mMol/L (20.0-31.0); Chloride 105 mMol/L (98-107); Creatinine (Component) 0.9 mg/dL (0.6-1.3); Estimated Creatinine Clearance 83.2 mL/min (>60); Globulin 2.8 gm/dL (2.3-3.5); Glucose 142 mg/dL (74-106); Magnesium 1.7 mg/dL (1.6-2.6); Osmolality,Calculated 281 (275-295); Phosphorous 3.3 mg/dL (2.4-5.1); Potassium 4.2 mMol/L (3.4-5.1); Sodium 140 mMol/L (136-145); Total Protein 6.2 gm/dL (5.7-8.2); eGFR > 60 See Note
[2025-02-21 06:54] LABS: INR 1.2 (0.9-1.3); Partial Thromboplastin Time 99.9 Seconds (22.0-36.0); Prothrombin Time 12.8 Seconds (9.0-12.2)
[2025-02-21] MEDS: INSULIN LISPRO (AdmeLOG) 1 UNIT/0.01 ML UNIT SC ×3 (07:59→16:30)
[2025-02-21] MEDS: DOXYCYCLINE 100 MG TABLET PO (08:30)
[2025-02-21] MEDS: AMIODARONE HCL 200 MG TABLET PO (08:30)
[2025-02-21] MEDS: Heparin/D5w 25K 250 ML Ivpb 25,000 UNIT/250 ML BAG 15.927 UNIT IV (08:31)
[2025-02-21 09:10] LABS: Partial Thromboplastin Time 77.9 Seconds (22.0-36.0)
--- NOTE | 2025-02-21 09:14 | PC.SS ---
This is 64-year-old, , male who presented to the ED due to suffering from shortness of breath. Assessment was completed with , Tara via telephone call. SW introduced self, role and reason for visit. Patient resides at home with Tara and his daughter, Mary. Patient is independent with all ADLs, no DME use. Patient's PCP is Gee Segal. When medically clear, patient will return home. Plan of care: Pending HLOC with thoracic surgery services. Discharge plan: home to family. Next of kin: Tara Marti, .
[2025-02-21 12:02] LABS: Cult AFB Sendout- Sputum* See Sep Rpt
--- NOTE | 2025-02-21 13:33 | PC.CM ---
Addendum entered by Helene Pelayo RN 02/21/25 19:27: Please follow up with Sharon FELDMAN at [phone] to have them assist with authorization. Original Note: 1230 I called Sharon FELDMAN at [phone] and I left a detailed message letting them know we need authorization on this patient for decortication due to loculated effusion. Patient need thoracic surgery services. The message from the office is they are closed and they will be open again tomorrow. I asked that we get a call back [employer] to assist with authorization.
[2025-02-21] MEDS: LEVOFLOXACIN 250 MG TABLET 750 MG PO (14:28)
[2025-02-21] MEDS: METOPROLOL SUCCINATE XL 25 MG TABCR 100 MG PO (14:28)
--- NOTE | 2025-02-21 15:41 | ESPR_ITS ---
<Statement entered by Deepa Gallegos MD - 02/24/25 00:08> I personally evaluated examined the patient along with the resident physician Dr. Hollis the PGY 2 agree with the treatment plan recommendation as documented Documentation for date of: 02/21/25 Subjective Subjective Interval history: Pt is seen at bedside, remainings in TB isolation. Saturating on room air, denies any shortness of breath, chest pain or palpitations. Pt has remained a febrile over night. Pt is rate controled, transitioned to metoprolol XL 100 daily. Pt was suppose to undergo thoracenthesis, however bedside US evaluation by shoe folder reveals ot has located pleural effusions. Transfer to tertiary center is initiated for thoracis surgery. vitals are stable, labs are reviewed. electrolytes are repleted. Exam Vital Signs Temp Pulse Resp BP Pulse Ox O2 Del Method 98.1 F 94 28 H 128/82 95 Room Air 02/21/25 12:00 02/21/25 14:28 02/21/25 12:00 02/21/25 14:28 02/21/25 12:00 02/21/25 12:00 Narrative Exam GENERAL: A&Ox3 . Awake, Not in acute distress NEURO: no focal neurological deficits HEENT: Atraumatic, Normocephalic. mucous membranes moist. Eyes open, symmetrical, & clear HEART: Normal Heart Sounds LUNGS: Clear to auscultation with no wheezing or crackles. ABDOMEN: soft, non-distended, non-tender, bowel sounds heard, no guarding or rebound tenderness SKIN: No Rash or ecchymoses EXTREMITIES: No edema, tenderness, able to move all 4 extremities, pedal pulses palpated Objective Labs 02/21/25 05:54 02/21/25 05:54 Labs: Laboratory Results - last 24 hr 02/21/25 02/21/25 02/21/25 00:13 05:54 08:00 WBC 12.7 H RBC 5.26 Hgb 14.0 Hct 41.3 MCV 79 L MCH 26.6 MCHC 33.9 RDW Std Deviation 38.9 Plt Count 297 Neut % (Auto) 68 Lymph % (Auto) 21 [place] % (Auto) 8 Eos % (Auto) 2 Baso % (Auto) 0 Neut # (Auto) 8.7 H Lymph # (Auto) 2.6 [place] # (Auto) 1.0 H Eos # (Auto) 0.3 Baso # (Auto) 0.0 Immature Gran # (Auto) 0.10 H Absolute Nucleated RBC 0.00 Immature Gran % 1 H Nucleated RBC % 0 PT 12.8 H INR 1.2 APTT 49.4 H D 99.9 H D 77.9 H D Sodium 140 Potassium 4.2 D Chloride 105 Carbon Dioxide 28.0 Anion Gap 7 BUN 12 Creatinine 0.9 Estim Creat Clear Calc 83.2 eGFR > 60 BUN/Creatinine Ratio 13 Glucose 142 H Calculated Osmolality 281 Calcium 8.5 Corrected Calcium 9.0 Phosphorus 3.3 Magnesium 1.7 Total Bilirubin 0.5 AST 18 ALT 28 Alkaline Phosphatase 91 Total Protein 6.2 Albumin 3.4 Globulin 2.8 Albumin/Globulin Ratio 1.2 Quality Measures Quality Measures VTE prophylaxis (heparin drip ) Assessment & Plan Assessment Current Active Medications: Generic Name Dose Route Start Last Admin Trade Name Freq PRN Reason Stop Dose Admin Acetaminophen 650 mg 02/18/25 20:28 Acetaminophen 325 Mg Tablet PO 03/20/25 20:27 Q6H PRN Pain 1-3 and/or Fever >100.1 Dextrose 25 ml 02/18/25 21:31 Dextrose 50%-Water Inj 50 Ml Syringe IV 03/20/25 21:30 Q15MIN PRN BG 50-70 responsive npo pt Dextrose 50 ml 02/18/25 21:31 Dextrose 50%-Water Inj 50 Ml Syringe IV 03/20/25 21:30 Q15MIN PRN BG <50 OR BG <70 & pt unresponsive Enoxaparin Sodium 80 mg 02/21/25 21:00 Enoxaparin Sod Inj 80 Mg/0.8 Ml Syringe SC 03/07/25 20:59 BID TU Glucagon 1 mg 02/18/25 21:31 Glucagon Inj 1 Mg Vial IM Q15MIN PRN BG <70, and no IV access Heparin Sodium/Dextrose 25,000 unit in 250 mls @ 11.376 mls/hr 02/18/25 22:00 02/21/25 09:42 Heparin In D5w Ivpb IV 03/04/25 21:59 21 units/kg/hr .[id number] TU 15.927 mls/hr Titration Protocol 15 UNITS/KG/HR Insulin Human Lispro 0 unit 02/19/25 07:30 02/21/25 11:31 Insulin Lispro (Admelog) 1 Unit/0.01 Ml Unit SC 03/21/25 07:29 2 unit AC TU Administration Protocol Levofloxacin 750 mg 02/21/25 14:00 02/21/25 14:28 Levofloxacin 250 Mg Tablet PO 02/28/25 13:59 750 mg QDAY TU Administration Metoprolol Succinate 100 mg 02/21/25 13:55 02/21/25 14:28 Metoprolol Succinate Xl 25 Mg Tabcr PO 03/23/25 13:54 100 mg QDAY TU Administration Ondansetron HCl 4 mg 02/18/25 20:28 Ondansetron Inj 2 Mg/Ml Inj 2 Ml IVP 03/20/25 20:27 Q6H PRN NAUSEA OR VOMITING Protocol Sennosides 1 tab 02/18/25 20:28 Senna Tablet PO 03/20/25 20:27 QDAY PRN constipation Protocol Plan Mr. Santacruz 64-year-old male with significant past medical history of hypertension, diabetes, recurrent episode of respiratory tract infection and antibiotic usage presented to the hospital with chief complaints of palpitations an cardiology is consulted for new onset atrial fibrillation with rapid ventricular rate #New onset atrial fibrillation with rapid ventricular rate, now rate controlled - Patient had previous history of palpitations for which she was supposed to see a municipal services manager in [place] but could not see due to insurance issues - Presented to the hospital with chief complaints of palpitations - Patient had history of 2 respiratory tract infections since September and got treated with outpatient antibiotics, azithromycin - Endorsed that he had weight loss of almost 20 pounds in the last 5 months - Atrial fibrillation could be due to underlying respiratory illness - Vitals at the time of admission are stable except for tachycardia - On physical examination, patient does not appear to be in heart failure - Chest x-ray showed right pleural effusion. EKG showed atrial fibrillation with rapid ventricular rate with no ST-T wave changes - TSH is within normal limits, triglycerides 268, HDL 25 - [id number] or is 2 [hypertension, diabetes mellitus] and has bled score is 0 Echo on 02/19/25 : Normal LV size and wall thickness. Estimated EF at 55-60% The RV is normal in size and systolic function. The estimated RVSP, 28 mmHg. RAP 5. Moderate MR. Mild AI and TR. Plan - Patient was given 1 dose of IV diltiazem 20 Mg push in the ED - Patient was started on amiodarone drip and transitioned to metorprolol XL 100mg daily - For anticoagulation started on lovenox 80mg BID - Recommended to keep potassium greater than 4 magnesium greater than 2 - Recommended to treat underlying pneumonia #Primary hypertension - Blood pressure at the time of admission is 148/92 mmHg - Patient is taking amlodipine 10 mg once daily at home Plan - Blood pressure is within normal limits during the hospital stay - Started on metoprolol XL #Right pleural effusion with superimposed pneumonia #Atypical pneumonia #Diabetes -Management as per primary team -Pending transfer for tertiary center for thoracic surgery Assessment and plan discussed with my attending physician Dr. El Hollis (PGY-2)- Internal medicine resident
[2025-02-21 15:53] LABS: Partial Thromboplastin Time 67.8 Seconds (22.0-36.0)
--- NOTE | 2025-02-21 16:29 | PD.RESPRO ---
Documentation for date of: 02/21/25 Subjective Subjective Interval history: Patient seen sitting upright in bed, no acute distress. Denies chest pain, palpitations, headache, or SOB. Reports mild occasional cough with small amount of clear sputum. No fevers, chills overnight. Eating well, no bowel movement yet. Patient asked when he will be transferred ? aware transfer is pending insurance and bed availability. Exam Vital Signs Temp Pulse Resp BP Pulse Ox O2 Del Method 98.1 F 94 28 H 128/82 95 Room Air 02/21/25 12:00 02/21/25 14:28 02/21/25 12:00 02/21/25 14:28 02/21/25 12:00 02/21/25 12:00 Narrative Exam GENERAL: Sitting upright, NAD, conversing in Azeri. HEENT: NC/AT, moist mucosa. NECK: No JVD. CV: Irregularly irregular, rate-controlled, no murmurs. RESP: Diminished breath sounds R base, no increased work of breathing. GI: Soft, NT/ND, +BS. EXT: No edema, good perfusion. NEURO: AOx3, no focal deficits. Objective Labs 02/22/25 05:47 02/22/25 05:47 Labs: Laboratory Results - last 24 hr 02/21/25 02/21/25 02/21/25 00:13 05:54 08:00 WBC 12.7 H RBC 5.26 Hgb 14.0 Hct 41.3 MCV 79 L MCH 26.6 MCHC 33.9 RDW Std Deviation 38.9 Plt Count 297 Neut % (Auto) 68 Lymph % (Auto) 21 [place] % (Auto) 8 Eos % (Auto) 2 Baso % (Auto) 0 Neut # (Auto) 8.7 H Lymph # (Auto) 2.6 [place] # (Auto) 1.0 H Eos # (Auto) 0.3 Baso # (Auto) 0.0 Immature Gran # (Auto) 0.10 H Absolute Nucleated RBC 0.00 Immature Gran % 1 H Nucleated RBC % 0 PT 12.8 H INR 1.2 APTT 49.4 H D 99.9 H D 77.9 H D Sodium 140 Potassium 4.2 D Chloride 105 Carbon Dioxide 28.0 Anion Gap 7 BUN 12 Creatinine 0.9 Estim Creat Clear Calc 83.2 eGFR > 60 BUN/Creatinine Ratio 13 Glucose 142 H Calculated Osmolality 281 Calcium 8.5 Corrected Calcium 9.0 Phosphorus 3.3 Magnesium 1.7 Total Bilirubin 0.5 AST 18 ALT 28 Alkaline Phosphatase 91 Total Protein 6.2 Albumin 3.4 Globulin 2.8 Albumin/Globulin Ratio 1.2 02/21/25 15:13 WBC RBC Hgb Hct MCV MCH MCHC RDW Std Deviation Plt Count Neut % (Auto) Lymph % (Auto) [place] % (Auto) Eos % (Auto) Baso % (Auto) Neut # (Auto) Lymph # (Auto) [place] # (Auto) Eos # (Auto) Baso # (Auto) Immature Gran # (Auto) Absolute Nucleated RBC Immature Gran % Nucleated RBC % PT INR APTT 67.8 H D Sodium Potassium Chloride Carbon Dioxide Anion Gap BUN Creatinine Estim Creat Clear Calc eGFR BUN/Creatinine Ratio Glucose Calculated Osmolality Calcium Corrected Calcium Phosphorus Magnesium Total Bilirubin AST ALT Alkaline Phosphatase Total Protein Albumin Globulin Albumin/Globulin Ratio Quality Measures Quality Measures VTE prophylaxis (heparin drip ) Assessment & Plan Assessment Current Active Medications: Generic Name Dose Route Start Last Admin Trade Name Freq PRN Reason Stop Dose Admin Acetaminophen 650 mg 02/18/25 20:28 Acetaminophen 325 Mg Tablet PO 03/20/25 20:27 Q6H PRN Pain 1-3 and/or Fever >100.1 Dextrose 25 ml 02/18/25 21:31 Dextrose 50%-Water Inj 50 Ml Syringe IV 03/20/25 21:30 Q15MIN PRN BG 50-70 responsive npo pt Dextrose 50 ml 02/18/25 21:31 Dextrose 50%-Water Inj 50 Ml Syringe IV 03/20/25 21:30 Q15MIN PRN BG <50 OR BG <70 & pt unresponsive Enoxaparin Sodium 80 mg 02/21/25 21:00 Enoxaparin Sod Inj 80 Mg/0.8 Ml Syringe SC 03/07/25 20:59 BID TU Glucagon 1 mg 02/18/25 21:31 Glucagon Inj 1 Mg Vial IM Q15MIN PRN BG <70, and no IV access Heparin Sodium/Dextrose 25,000 unit in 250 mls @ 11.376 mls/hr 02/18/25 22:00 02/21/25 15:59 Heparin In D5w Ivpb IV 03/04/25 21:59 21 units/kg/hr .[id number] TU 15.927 mls/hr Titration Protocol 15 UNITS/KG/HR Insulin Human Lispro 0 unit 02/19/25 07:30 02/21/25 11:31 Insulin Lispro (Admelog) 1 Unit/0.01 Ml Unit SC 03/21/25 07:29 2 unit AC TU Administration Protocol Levofloxacin 750 mg 02/21/25 14:00 02/21/25 14:28 Levofloxacin 250 Mg Tablet PO 02/28/25 13:59 750 mg QDAY TU Administration Metoprolol Succinate 100 mg 02/21/25 13:55 02/21/25 14:28 Metoprolol Succinate Xl 25 Mg Tabcr PO 03/23/25 13:54 100 mg QDAY TU Administration Ondansetron HCl 4 mg 02/18/25 20:28 Ondansetron Inj 2 Mg/Ml Inj 2 Ml IVP 03/20/25 20:27 Q6H PRN NAUSEA OR VOMITING Protocol Sennosides 1 tab 02/18/25 20:28 Senna Tablet PO 03/20/25 20:27 QDAY PRN constipation Protocol Plan 64M with new-onset A-fib, large loculated R pleural effusion with pneumonia, HTN, prediabetes #Right loculated pleural effusion with pneumonia -CT shows large loculated effusion -Plan transfer for decortication/pigtail drain with dornase. -Awaiting insurance authorization and bed availability, patient updated. -Now on levofloxacin. -Hold steroids. #New-onset A-fib Echo shows normal EF (55?60%), normal RV function, moderate MR, mild AI/TR. No LV dysfunction. -Amiodarone drip discontinued. -Rate-controlled on metoprolol. -Heparin drip to stop at 8PM transition to therapeutic Lovenox for anticoagulation. -Continue telemetry. #TB rule out [place] travel Sep, one episode hemoptysis October. -Only 2/3 AFB cultures collected, poor sputum yield. -Reordering full 3 AFB q8h. -QuantiFERON pending. -PCP Dr. Gee Segal, will obtain any prior TB/outpatient lung records. #Hypertension -Normotensive -Home amlodipine resumed. #Prediabetes -Glucose still elevated, A1c 7.1. -Continue sliding scale insulin. #Electrolytes Phos/Mag repleted, recheck levels tomorrow. #Hypertriglyceridemia Triglycerides 268, LDL 63 -no treatment needed, monitor only. Health Maintenance: Lines: PIV Diet: Cardiac Bowel: Senna PRN (no BM yet) GI prophylaxis: Not needed DVT prophylaxis: Heparin drip transitioning to lovenox Dispo: Await transfer for decortication; repeat AFB cultures, echo negative, outside records requested Code: Full ----- Plan discussed with attending physician Dr. Jaron Padilla MD PGY-1 Internal Medicine Attending Provider Attestation/Addendum Amari, Franchesca Salmeron DO, attest that I was physically present for the sigala portions of the service and evaluated the patient with the resident and I reviewed and discussed the case with the resident and agree with the resident's findings and plans of care as documented above . Patient seen and eval this a.m. He continues to have some dyspnea on exertion. He states that he has trouble ambulating back to his bed from the bathroom due to shortness of breath. However, patient remains on room air. He denies any active chest pain or shortness of breath at rest. He denies any productive sputum or cough. No acute events overnight. Case was discussed in detail with pulmonology who performed another ultrasound at bedside to further assess if there is any possible fluid that could be removed. Unfortunately, patient has heavy loculations and minimal pleural fluid to for safe thoracentesis or placement of chest tube to perform intrapleural fibrinolysis. Recommendation by pulmonology is to transfer patient for thoracic surgery evaluation for possible decortication as patient has a thick rind of loculations that could result in recurrent infections. If patient is unable to be transferred, it is recommended that the patient continue with antibiotics with pseudomonal coverage for at least 6 weeks until he can be evaluated by thoracic surgeon. Will place patient on levofloxacin due to ease of transition to oral formulation. Patient states that he was unable to tolerate levofloxacin very well outpatient due to GI discomfort. Will place probiotics if patient does have any GI distress and will monitor closely. Transfer process has been started but unable to obtain authorization until week days/business hours. Will obtain records from [facility] tomorrow, patient's PCP, for report of TB rule out.
[2025-02-21] MEDS: SIMETHICONE 80 MG CHEW PO (20:03)
[2025-02-21] MEDS: ENOXAPARIN SOD INJ 80 MG/0.8 ML SYRINGE SC (20:03)
[2025-02-21 21:18] LABS: Cult AFB Sendout- Sputum* See Sep Rpt
[2025-02-21 22:29] LABS: Partial Thromboplastin Time 46.2 Seconds (22.0-36.0)
[2025-02-22] VITALS (8 sets, daily range): BP systolic 110–133; BP diastolic 76–97; PULSE 71–90; RESP 14–23; TEMP 36.1–37.3; O2SAT 94–96; BMI 27.6
[2025-02-22] MEDS: MELATONIN 3 MG TABLET PO ×2 (00:35→22:55)
[2025-02-22 06:19] LABS: Quantiferon-TB* See Sep Rpt
[2025-02-22 06:26] LABS: Basophils # (Auto) 0.0 Thou/mm3 (0.0-0.2); Basophils % (Auto) 0 % (0-2.5); Eosinophils # (Auto) 0.3 Thou/mm3 (0.0-0.5); Eosinophils % (Auto) 2 % (0-10); Hematocrit 45.5 % (41.0-53.0); Hemoglobin 14.8 g/dL (13.5-16.0); Immature Granulocytes Auto 0.12 Thou/mm3 (0.00-0.00); Lymphocytes # (Auto) 2.2 Thou/mm3 (1.0-4.8); Lymphocytes % (Auto) 17 % (10-50); Mean Corpuscular HGB Conc 32.5 g/dl (31.0-37.0); Mean Corpuscular Hemoglobin 26.1 pg (25.0-35.0); Mean Corpuscular Volume 80 fL (80-100); Monocytes # (Auto) 1.0 Thou/mm3 (0.0-0.8); Monocytes % (Auto) 8 % (0-12); Neutrophils # (Auto) 9.7 Thou/mm3 (1.8-7.7); Neutrophils % (Auto) 73 % (37-80); Nucleated Red Blood Cell # 0.00 Thou/mm3 (0.00-0.00); Nucleated Red Blood Cell % 0 /100 WBC (0); Platelet Count 310 Thou/mm3 (140-440); RDW Standard Deviation 39.9 fL (35.1-43.9); Red Blood Count 5.68 Miln/mm3 (4.50-5.90); White Blood Count 13.3 Thou/mm3 (3.8-10.6)
[2025-02-22 06:46] LABS: Alanine Aminotransferase 29 U/L (10-49); Albumin, Serum 3.9 gm/dL (3.4-4.8); Albumin/Globulin Ratio 1.4 (1.2-2.2); Alkaline Phosphatase 103 U/L (46-116); Anion Gap 10 (7-16); Aspartate Amino Transferase 19 U/L (0-34); BUN/Creatinine Ratio 13 Ratio (12-20); Bilirubin,Total 0.5 mg/dL (0.3-1.2); Blood Urea Nitrogen 10 mg/dL (9-23); Calcium 9.7 mg/dL (8.3-10.6); Calcium (Corrected) 9.8 mg/dL (8.5-10.1); Carbon Dioxide 27.2 mMol/L (20.0-31.0); Chloride 103 mMol/L (98-107); Creatinine (Component) 0.8 mg/dL (0.6-1.3); Estimated Creatinine Clearance 92.9 mL/min (>60); Globulin 2.8 gm/dL (2.3-3.5); Glucose 160 mg/dL (74-106); Magnesium 1.4 mg/dL (1.6-2.6); Osmolality,Calculated 281 (275-295); Phosphorous 4.0 mg/dL (2.4-5.1); Potassium 4.4 mMol/L (3.4-5.1); Sodium 140 mMol/L (136-145); Total Protein 6.7 gm/dL (5.7-8.2); eGFR > 60 See Note
[2025-02-22] MEDS: INSULIN LISPRO (AdmeLOG) 1 UNIT/0.01 ML UNIT SC (08:23)
[2025-02-22] MEDS: Magnesium Sulfate 4 GM Ivpb 4 GM/50 ML BAG IV (08:24)
[2025-02-22] MEDS: ENOXAPARIN SOD INJ 80 MG/0.8 ML SYRINGE SC ×2 (08:24→21:01)
[2025-02-22] MEDS: METOPROLOL SUCCINATE XL 25 MG TABCR 100 MG PO (08:24)
--- NOTE | 2025-02-22 08:50 | PC.CC ---
Addendum entered by Kemi Rojo RN 02/22/25 17:23: 1720: Received TBA. Dr Salmeron called to clarify pt was accepted to . 1646: Called Jessy Herrera, left with information and [facility] call back. 1643: received call from Aicha morocho/ DENNY BLANCO, she stated Dr. Hernandez is accepting pt. Peer to peer w/ Dr. Salmeron completed. proceed with transfer. TBA will be faxed. Aicha stated she was unable to open case through that number [phone]. She stated to have Jessy Herrera call them. Addendum entered by Kemi Rojo RN 02/22/25 16:34: 1628: missed a call from [facility], called back and spoke to Laurel. She stated Aicha is on the line with their hospitalist and was trying to initiate a call with Dr. Salmeron. Dr. Salmeron's contact info provided to Laurel. She stated she will provide that information to Aicha. 1437: called and spoke to Aicha morocho/ FRANCIS, she stated she didn't recall that process. But will call to open a case. She stated she will call me back. 1433: spoke to Jessy, she stated that is contracted and they should know to open a case by calling [phone] Addendum entered by Kemi Rojo RN 02/22/25 12:20: 1157: Called Jessy back, left to return my call. 1153: received call back from Aicha morocho/ DENNY BLANCO, she stated an ins auth will be required to review pt. She provided the special education classroom aide Hospitalist name and NPI number to provide to the insurance company. oncall hospitalist today is Dr. Vandana Hernandez , [facility] in [place] . Addendum entered by Kemi Rojo RN 02/22/25 09:49: 0944: Called and spoke to Aicha BLANCO, she stated she will review and call me back. 0940: clinicals and imaging sent to [facility]. 0905: received call from Jessy Herrera. She stated she can not provide prior auth without an accepting facility and doctor. She suggested to reach out to [facility]. Addendum entered by Kemi Rojo RN 02/22/25 09:03: 0854: received call back from Megan with [facility]. She stated to please remove her off the contact list as she does not cover our area. She stated the retail personal banker for our hospital is Jessy. Her name and number is listed as the one of the contact persons for [facility]. Per Megan, Jessy is our main contact. Megan asked for her name to be removed from the list of contacts. Megan stated she sent all information to Jessy and will have her call me. Original Note: 0848: received a VM from the insurance co, message left was incomprehensible. Called back, left message to return my call.
[2025-02-22] MEDS: ONDANSETRON INJ 2 MG/ML INJ 2 ML 4 MG IVP (12:12)
[2025-02-22] MEDS: SIMETHICONE 80 MG CHEW PO (12:12)
--- NOTE | 2025-02-22 14:37 | PC.SS ---
SS follow up note; TB R/O. Transfer pending.
[2025-02-22] MEDS: CEFEPIME INJ 2 GM in SODIUM CHLORIDE 0.9% (Popper) 50 ML IV ×2 (15:37→21:02)
--- NOTE | 2025-02-22 15:41 | ESPR_ITS ---
Documentation for date of: 02/22/25 Subjective Subjective Interval history: No overnight events. Patient seen at bedside, resting comfortably. Denies fevers, chills, chest pain, nausea, vomiting, SOB. Pending TB testing - send out. Pending transfer for decortication. Exam Vital Signs Temp Pulse Resp BP Pulse Ox O2 Del Method 97.6 F 76 16 132/82 H 96 Room Air 02/22/25 12:00 02/22/25 12:00 02/22/25 12:00 02/22/25 12:00 02/22/25 12:00 02/22/25 12:00 Narrative Exam GENERAL: Sitting upright, NAD, conversing in Georgian. HEENT: NC/AT, moist mucosa. NECK: No JVD. CV: Irregularly irregular, rate-controlled, no murmurs. RESP: Diminished breath sounds R base, no increased work of breathing. GI: Soft, NT/ND, +BS. EXT: No edema, good perfusion. ROM and strength normal in all extremities. NEURO: AOx3, no focal deficits. Objective Labs 02/22/25 05:47 02/22/25 05:47 Labs: Laboratory Results - last 24 hr 02/21/25 02/21/25 02/21/25 11:29 15:13 21:45 WBC RBC Hgb Hct MCV MCH MCHC RDW Std Deviation Plt Count Neut % (Auto) Lymph % (Auto) [place] % (Auto) Eos % (Auto) Baso % (Auto) Neut # (Auto) Lymph # (Auto) [place] # (Auto) Eos # (Auto) Baso # (Auto) Immature Gran # (Auto) Absolute Nucleated RBC Immature Gran % Nucleated RBC % APTT 67.8 H D 46.2 H D Sodium Potassium Chloride Carbon Dioxide Anion Gap BUN Creatinine Estim Creat Clear Calc eGFR BUN/Creatinine Ratio Glucose Calculated Osmolality Calcium Corrected Calcium Phosphorus Magnesium Total Bilirubin AST ALT Alkaline Phosphatase Total Protein Albumin Globulin Albumin/Globulin Ratio Mycobacterial Culture Cancelled 02/22/25 05:47 WBC 13.3 H RBC 5.68 Hgb 14.8 Hct 45.5 MCV 80 MCH 26.1 MCHC 32.5 RDW Std Deviation 39.9 Plt Count 310 Neut % (Auto) 73 Lymph % (Auto) 17 [place] % (Auto) 8 Eos % (Auto) 2 Baso % (Auto) 0 Neut # (Auto) 9.7 H Lymph # (Auto) 2.2 [place] # (Auto) 1.0 H Eos # (Auto) 0.3 Baso # (Auto) 0.0 Immature Gran # (Auto) 0.12 H Absolute Nucleated RBC 0.00 Immature Gran % 1 H Nucleated RBC % 0 APTT Sodium 140 Potassium 4.4 Chloride 103 Carbon Dioxide 27.2 Anion Gap 10 BUN 10 Creatinine 0.8 Estim Creat Clear Calc 92.9 eGFR > 60 BUN/Creatinine Ratio 13 Glucose 160 H Calculated Osmolality 281 Calcium 9.7 Corrected Calcium 9.8 Phosphorus 4.0 Magnesium 1.4 L Total Bilirubin 0.5 AST 19 ALT 29 Alkaline Phosphatase 103 Total Protein 6.7 Albumin 3.9 D Globulin 2.8 Albumin/Globulin Ratio 1.4 Mycobacterial Culture Quality Measures Quality Measures VTE prophylaxis (heparin drip ) Assessment & Plan Assessment Current Active Medications: Generic Name Dose Route Start Last Admin Trade Name Freq PRN Reason Stop Dose Admin Acetaminophen 650 mg 02/18/25 20:28 Acetaminophen 325 Mg Tablet PO 03/20/25 20:27 Q6H PRN Pain 1-3 and/or Fever >100.1 Amlodipine Besylate 10 mg 02/22/25 09:00 02/22/25 08:24 Amlodipine Besylate 5 Mg Tablet PO 03/24/25 08:59 10 mg QDAY TU Administration Dextrose 25 ml 02/18/25 21:31 Dextrose 50%-Water Inj 50 Ml Syringe IV 03/20/25 21:30 Q15MIN PRN BG 50-70 responsive npo pt Dextrose 50 ml 02/18/25 21:31 Dextrose 50%-Water Inj 50 Ml Syringe IV 03/20/25 21:30 Q15MIN PRN BG <50 OR BG <70 & pt unresponsive Enoxaparin Sodium 80 mg 02/21/25 21:00 02/22/25 08:24 Enoxaparin Sod Inj 80 Mg/0.8 Ml Syringe SC 03/07/25 20:59 80 mg BID TU Administration Glucagon 1 mg 02/18/25 21:31 Glucagon Inj 1 Mg Vial IM Q15MIN PRN BG <70, and no IV access Cefepime HCl 2 gm/ Sodium 50 mls @ 100 mls/hr 02/22/25 13:29 02/22/25 15:37 Chloride IV 03/01/25 13:28 100 mls/hr Q8HR TU Administration Insulin Human Lispro 0 unit 02/19/25 07:30 02/22/25 12:06 Insulin Lispro (Admelog) 1 Unit/0.01 Ml Unit SC 03/21/25 07:29 Not Given AC TU Protocol Melatonin 3 mg 02/22/25 00:20 02/22/25 00:35 Melatonin 3 Mg Tablet PO 03/24/25 00:19 3 mg HS PRN Administration INSOMNIA Metoprolol Succinate 100 mg 02/21/25 13:55 02/22/25 08:24 Metoprolol Succinate Xl 25 Mg Tabcr PO 03/23/25 13:54 100 mg QDAY TU Administration Ondansetron HCl 4 mg 02/18/25 20:28 02/22/25 12:12 Ondansetron Inj 2 Mg/Ml Inj 2 Ml IVP 03/20/25 20:27 4 mg Q6H PRN Administration NAUSEA OR VOMITING Protocol Sennosides 1 tab 02/18/25 20:28 Senna Tablet PO 03/20/25 20:27 QDAY PRN constipation Protocol Simethicone 80 mg 02/21/25 19:40 02/22/25 12:12 Simethicone 80 Mg Chew PO 03/23/25 19:39 80 mg QID PRN Administration Bloating, Gas Plan 64M with new-onset A-fib, large loculated R pleural effusion with pneumonia, HTN, prediabetes #Right loculated pleural effusion with pneumonia CT shows large loculated effusion. Plan transfer for decortication/pigtail drain with dornase. - Awaiting insurance authorization and bed availability, patient updated. - Now on levofloxacin. - Hold steroids. #New-onset A-fib Echo shows normal EF (55?60%), normal RV function, moderate MR, mild AI/TR. No LV dysfunction. Amiodarone drip discontinued. Rate-controlled on metoprolol. Initally treated with heparin drip, transitioned to lovenox. - therapeutic Lovenox for anticoagulation. - Continue telemetry. #TB rule out [place] travel Sep, one episode hemoptysis October. 3 AFB q8h collected, send out. - 3 AFB q8h. pending - QuantiFERON pending. - PCP Dr. Gee Segal, will obtain any prior TB/outpatient lung records. #Hypertension Patient history. Normotensive currently -Home amlodipine resumed. #Prediabetes Glucose still elevated, A1c 7.1. -Continue sliding scale insulin. #Electrolyte abnormalities Phos/Mag repleted - monitor - repleat as needed #Hypertriglyceridemia Triglycerides 268, LDL 63 -no treatment needed, monitor only. Health Maintenance: Lines: PIV Diet: Cardiac Bowel: Senna PRN (no BM yet) GI prophylaxis: Not needed DVT prophylaxis: Heparin drip transitioning to lovenox Dispo: Await transfer for decortication; repeat AFB cultures, echo negative, outside records requested Code: Full Plan of care discussed with attending Dr. Salmeron. Leo Suazo MD PGY-2 Attending Provider Attestation/Addendum IFranchesca DO, attest that I was physically present for the sigala portions of the service and evaluated the patient with the resident and I reviewed and discussed the case with the resident and agree with the resident's findings and plans of care as documented above Patient seen and evaluated this afternoon. No acute events overnight. Patient is comfortable. Family at bedside. Pending TB results and outpatient records from PCP since patient was ruled out for tuberculosis there. [place] fever negative. Patient has been afebrile otherwise. Pending transfer for thoracic evaluation. Ultrasound of pleural drainage was done this morning and shows minimal effusion for safe thoracentesis.
--- NOTE | 2025-02-22 16:42 | ESDS_ITS ---
<Statement entered by Franchesca Salmeron DO - 02/23/25 14:26> I, Franchesca Salmeron DO, attest that I was physically present for the sigala portions of the service and evaluated the patient with the resident and I reviewed and discussed the case with the resident and agree with the resident's findings and plans of care as documented above Planned Discharge Date 02/22/25 DS: Providers Provider Date of admission: 02/18/25 20:28 Primary care physician: Gee Bolanos Admitting Provider: Rina Hollis MD Attending Provider on Admission: Franchesca Salmeron DO Consults: 02/18/25 20:14 Consult to Cardiology Stat Comment: Consulting Provider: Deepa Gallegos 02/19/25 12:25 Referral Infection Control Routine Comment: Instructions: TB rule out Reason for Infection Control Referral: TB, MENGI, HEP, MRSA,CDIF [facility] Referral - Knowledge Deficit Routine Comment: Positive screening for knowledge deficit needs. 02/20/25 15:32 Referral - Occupational Rehabilitation Aide Routine Service Needed for Transfer: Cardiovascular/Thoracic Surg Addl Comments:: Patient came with night sweats, weight loss and fever spikes from last couple of weeks. Patient was found to have mild to moderate pleural effusion more on the right side. Pleural effusion appears to be loculated requiring decortication or possible pigtail for draining the pleural fluid. Patient needs to get transferred for requiring thoracic surgeon due to his loculated right-sided pleural effusion. Patient is currently rate controlled with amiodarone along with heparin drip since he was found to have A-fib on admission. Cocci was negative. TB results are pending. 02/21/25 12:57 Consult to Pulmonology Routine Comment: Loculated effusions Consulting Provider: Regulo Benites I Attending Provider on DC: Franchesca Salmeron DO Discharging Provider: Leo Suazo MD DS: Diagnosis Problem List Completed Was Problem List Reviewed/Reconciled?: Yes Hospital Course Hospital Course Hospital course: 64-year-old male past medical history of hypertension, prediabetes and recurrent pneumonia which has failed outpatient antibiotic therapy presented to the ED on 02/18 with palpitations and feeling tachycardic, was admitted for new onset atrial fibrillation. Patient found to have significant right-sided pleural effusions, loculated, likely due to pneumonia. Cardiology was consulted to aid in management of new onset atrial fibrillation. Treated with metoprolol and therapeutic levels of Lovenox. TB tests ordered, results pending. Pulmonology was consulted, given significant pleural effusion and loculations, patient to be transferred to facility with cardiothoracic surgery for decortication. During hospital stay patient received IV antibiotics, cefepime initiated on 02/18. Attempted to transition patient to Levaquin, however patient had nausea and anxiety, transition back to cefepime. Patient accepted for transport for decortication. Patient medically stable for transfer. Diagnoses: #New onset atrial fibrillation #Right pleural effusion with superimposed pneumonia #Atypical pneumonia #Hypertension #Prediabetes Plan of care discussed with attending Dr. Salmeron. Leo Suazo MD PGY?2 Time Spent with Patient Time attestation: Total time spent providing and/or coordinating discharge services: Time spent: Greater than 30 minutes Exam Vital Signs Temp Pulse Resp BP Pulse Ox O2 Del Method 97.3 F 84 18 118/90 H 95 Room Air 02/22/25 16:02/22/25 16:02/22/25 16:02/22/25 16:00 02/22/25 16:00 02/22/25 16:00 Narrative Exam GENERAL: Sitting upright, NAD, conversing in [place]. HEENT: NC/AT, moist mucosa. NECK: No JVD. CV: Irregularly irregular, rate-controlled, no murmurs. RESP: Diminished breath sounds R base, no increased work of breathing. GI: Soft, NT/ND, +BS. EXT: No edema, good perfusion. ROM and strength normal in all extremities. NEURO: AOx3, no focal deficits. Discharge Plan Plan Patient Disposition: Xfer Other Facility Pt Being Transferred to: [facility] Patient condition on transfer: Stable Prescriptions/Referrals Prescriptions/Med Rec: New cefepime 2 gram recon soln 2 g IV Q8H Continued Amlodipine Besylate 10 MG tablet 10 mg PO QDAY Qty: 30 Aspirin (Adult Low Dose Aspirin) 81 MG TABLET.DR 81 mg PO QDAY Qty: 30 cyclobenzaprine 10 mg tablet 10 mg PO TID PRN (Reason: muscle spasm) Qty: 30 0RF metoprolol succinate 25 mg tablet extended release 24 hr 25 mg PO DAILY Patient Comments: patient has not started med, new prescription Discontinued Eliquis 5 mg tablet 5 mg PO DAILY Patient Comments: patient has not started med, new prescription clindamycin HCl 300 mg capsule 300 mg PO TID Patient Comments: patient has not started med, new prescription Referrals: Gee Segal [Primary Care Provider] - Patient/Caregiver Discharge Instructions Discharge Activity: activity as tolerated Print Language: [place] Stand Alone Forms: Hilda Award Info., Patient Portal Info Letter Discharge Order Discharge Orders: Discharge (Routine); Ordered 02/22/25 Ordered By: Leo Suazo Quality Discharge Quality Measures VTE prophylaxis
--- NOTE | 2025-02-22 20:14 | XR_ITS ---
Examination: Ultrasound hemithoraces right and left TECHNIQUE: Grayscale sonographic images right and left hemithoraces February 22, 2025 1221 hours INDICATIONS: Difficulty breathing this week, pleural fluid on CT chest February 18, 2025 FINDINGS: Small bilateral pleural effusions IMPRESSION: Small bilateral pleural effusions
--- NOTE | 2025-02-22 23:12 | PC.NURSE ---
RN CALLED [facility] [phone] SBAR REPORT GIVEN TO ELENA MONTENEGRO, QUESTIONS ANSWERED. AMBULANCE ETA 0045 02/23/25.
--- NOTE | 2025-02-22 23:38 | PC.NURSE ---
2330 PT TRANSFERRED TO [facility] ON [facility] WITH AMBULANCE PERSONNEL WITH BELONGINGS. PT AAOX4,NO ACUTE DISTRESS,DENIES PAIN. [facility] ELENA MONTENEGRO UPDATED OF TRANSFER AND ACKNOWLEDGED.
--- NOTE | 2025-02-23 07:38 | PC.CC ---
pt transferred to [facility] on 02/22/25 @ 2330 per chart and mirtha Weber late entry for 02/22/25: transfer packet w/ 2 CD's made and left on the transfer nurse desk.
[2025-02-25 15:36] LABS: Index Value <0.50
[2025-02-26 06:34] LABS: ANA Screen, IFA POSITIVE (NEGATIVE); ANA Titer 1:80 titer; ANCA Screen NEGATIVE (NEGATIVE); Aspergillus Ag, Ser* NOT DETECTED; Myeloperoxidase Ab <1.0 AI (<1.0); Proteinase-3 Ab <1.0 AI (<1.0)
== END 2025-02-22 23:30 | disposition other institution (70) | DRG 143 ==
LOC: SERX 20:38 → SERHOLD 20:52 → S2NX 02-19 11:06
PROVIDERS: Internal Medicine Cardiovascular Disease; Nurse Practitioner Family; Student in an Organized Health Care Education/Training Program; Admitting Provider Student in an Organized Health Care Education/Training Program; Emergency Provider Student in an Organized Health Care Education/Training Program; PCP Physician Assistant; Visit Provider Internal Medicine
DX: J90 Pleural effusion, not elsewhere classified (principal); I48.91 Unspecified atrial fibrillation; J18.9 Pneumonia, unspecified organism; I10 Essential (primary) hypertension; I48.92 Unspecified atrial flutter; E78.1 Pure hyperglyceridemia; E11.9 Type 2 diabetes mellitus without complications; J86.9 Pyothorax without fistula; J45.909 Unspecified asthma, uncomplicated; F41.9 Anxiety disorder, unspecified; Z79.4 Long term (current) use of insulin; Z79.899 Other long term (current) drug therapy; Z87.01 Personal history of pneumonia (recurrent); J47.0 Bronchiectasis with acute lower respiratory infection
CPT/HCPCS: 36415; 71046; 71250; 76999; 80053; 80061; 82150; 82945; 83036; 83615; 83735; 83880; 83986; 84100; 84157; 84311; 84315; 84443; 84484; 85025; 85610; 85652; 85730; 86021; 86036; 86038; 86140; 86331; 86480; 86635; 87015; 87040; 87070; 87075; 87116; 87205; 87206; 87305; 87634; 87811; 89051; 89220; 93005; 93306; 96361; 96365; 96366; 96367; 96372; 96375; 99285; J0283; J0456; J0692; J1644; J1650; J1815; J2405; J3475; J3490; J7050; J7999; 94640; A9270

== ENCOUNTER 2025-03-06 17:10 | Emergency (ER) | payer MEDICAID, SELFPAY ==
--- NOTE | 2025-03-06 17:15 | EKG_ITS ---
[facility] Test Date: 2025-03-06 Pat Name: PIPPA ALICEA Department: Room: - Gender: Male Print Color Matcher: : 1960 Requested By: Say Wilson Order Number: [id number] Reading MD: Say Wilson Measurements Intervals Nichols Rate: 108 P: DE: QRS: 20 QRSD: 87 T: -21 QT: 339 QTc: 455 Interpretive Statements ATRIAL FIBRILLATION WITH RAPID VENTRICULAR RESPONSE NONSPECIFIC ST & T-WAVE ABNORMALITY ABNORMAL RHYTHM ECG Compared to ECG 02/18/2025 17:43:18 T-wave abnormality now present /store/S0/[id number]/ecg/[id number].pdf
[2025-03-06 17:20] VITALS: BP 160/87; PULSE 107; RESP 19; TEMP 36.7; O2SAT 96; BMI 26.6
--- NOTE | 2025-03-06 17:32 | XR_ITS ---
Examination: PA chest single view TECHNIQUE: Upright PA chest single view Date and time: March 06, 2025 8002 hours, comparison February 18, 2025 INDICATIONS: Chest pain beginning 2 days ago. FINDINGS: Mild parenchymal disease right base Layered right pleural disease which appears less prominent compared to the February 18 exam Mild enlargement cardiac contour. No pulmonary edema IMPRESSION: Mild pneumonia right base with mild to moderate right pleural disease
--- NOTE | 2025-03-06 17:32 | PD.EDRME ---
Rapid Medical Screening Exam RME Arrival date/time: 03/06/25 17:10 This is a 64-year-old male who presents to the emergency department with complaints of acute dizziness and short of breath. Recently diagnosed with A-fib and had large pleural effusion transferred to [facility]. I have greeted and performed a focused initial assessment of this patient. Initial appropriate labs ordered at this time. A comprehensive ED assessment and evaluation of the patient and analysis of all test and completion of medical decision making process will be conducted by additional ED provider. Chief Complaint: Shortness of Breath/Dyspnea Time Seen by Provider: 03/06/25 17:32 Vital signs: Vital Signs Temperature 98.1 F 03/06/25 17:20 Pulse Rate 107 H 03/06/25 17:20 Respiratory Rate 19 03/06/25 17:20 Blood Pressure 160/87 H 03/06/25 17:20 Pulse Oximetry (%) 96 03/06/25 17:20 Oxygen Delivery Method Room Air 03/06/25 17:20
[2025-03-06 18:13] LABS: Basophils # (Auto) 0.0 Thou/mm3 (0.0-0.2); Basophils % (Auto) 0 % (0-2.5); Eosinophils # (Auto) 0.2 Thou/mm3 (0.0-0.5); Eosinophils % (Auto) 1 % (0-10); Hematocrit 45.4 % (41.0-53.0); Hemoglobin 15.2 g/dL (13.5-16.0); Immature Granulocytes Auto 0.13 Thou/mm3 (0.00-0.00); Lymphocytes # (Auto) 2.4 Thou/mm3 (1.0-4.8); Lymphocytes % (Auto) 18 % (10-50); Mean Corpuscular HGB Conc 33.5 g/dl (31.0-37.0); Mean Corpuscular Hemoglobin 26.5 pg (25.0-35.0); Mean Corpuscular Volume 79 fL (80-100); Monocytes # (Auto) 1.1 Thou/mm3 (0.0-0.8); Monocytes % (Auto) 9 % (0-12); Neutrophils # (Auto) 9.6 Thou/mm3 (1.8-7.7); Neutrophils % (Auto) 71 % (37-80); Nucleated Red Blood Cell # 0.00 Thou/mm3 (0.00-0.00); Nucleated Red Blood Cell % 0 /100 WBC (0); Platelet Count 305 Thou/mm3 (140-440); RDW Standard Deviation 45.1 fL (35.1-43.9); Red Blood Count 5.74 Miln/mm3 (4.50-5.90); White Blood Count 13.5 Thou/mm3 (3.8-10.6)
--- NOTE | 2025-03-06 18:28 | PD.EDSOB ---
ED SOB =RME/HPI General Chief Complaint: Shortness of Breath/Dyspnea Stated Complaint: HTN, A fib, SOB, dizzy Time Seen by Provider: 03/06/25 17:32 Arrival date/time: 03/06/25 17:10 RME / HPI RME / HPI Narrative: 03/06/25 17:10 This is a 64-year-old male who presents to the emergency department with complaints of acute dizziness and short of breath. Recently diagnosed with A-fib and had large pleural effusion transferred to [facility]. I have greeted and performed a focused initial assessment of this patient. Initial appropriate labs ordered at this time. A comprehensive ED assessment and evaluation of the patient and analysis of all test and completion of medical decision making process will be conducted by additional ED provider. This section includes all my notes and documentations, including HPI, PE, and ED course. Gabriel Byrd MD HPI: 64 y/o male with Hx of Atherosclerotic Heart Disease, HTN, and recent A-Fib with RVR presents with shortness of breath and dizziness x few hours. Patient had an elevated blood pressure of 160/93 mmHg and heart rate of 113 at home. Denies chest pain and fever. No other complaints. ROS: All negative except as documented in HPI. Physical Exam: General: Alert and oriented. No acute distress when remaining still. Eyes: Conjunctivae and lids clear. ENT: No nasal congestion. Neck: Supple. Heart: RRR. Lungs: No respiratory distress. Good air movement. No rhonchi, wheezing, rales. Skin: Warm and dry. Neuro: Alert and oriented X 3. I reviewed all diagnostic test results: My interpretation of the EKG is: Atrial fibrillation (108 bpm). My interpretation of the chest x-ray is no acute findings. Blood tests and urine tests unremarkable, except Mg 1.4. At this point, diagnoses include: Atrial fibrillation, HTN. Treatment here included: Oral Lopressor 50 mg, Lopressor 2.5 mg IV, Magnesium sulfate 2 G. Significant improvement noted. Recommended oupatient care. Based on my best medical judgment, made decision no further evaluation or treatment indicated at this time. Patient understands and agrees to the discharge instructions customized and printed, see below. Discharge Instructions from Dr. Byrd printed for you: 1. Fortunately, there is no life-threatening condition. Such as heart attack. 2. Increase metoprolol from 1/2 50 mg pill 2X daily to entire 50 mg 2X daily. This will help lower BP and heart rate. 3. Continue current care with private doctors. 4. Seek immediate medical care with worsening or with any concerns. Gabriel Byrd MD Related Data Home Medications ?Medication ?Instructions ?Recorded ?Confirmed Amlodipine Besylate 10 mg PO QDAY ##30 06/14/16 02/19/25 Aspirin (Adult Low Dose Aspirin) 81 mg PO QDAY ##30 06/14/16 02/19/25 metoprolol succinate 25 mg 25 mg PO DAILY 02/20/25 02/20/25 tablet,extended release 24 hr Previous Rx's ?Medication ?Instructions ?Recorded cyclobenzaprine 10 mg tablet 10 mg PO TID PRN muscle spasm #30 11/09/24 tabs cefepime 2 gram solution for 2 g IV Q8H 02/22/25 injection metoprolol succinate 50 mg 50 mg PO BID #180 tabs 03/06/25 tablet,extended release 24 hr Allergies Allergy/AdvReac Type Severity Reaction Status Date / Time amoxicillin Allergy Severe Swelling Verified 03/06/25 17:15 of the Eye caffeine Allergy Severe DIFFICULTY Verified 03/06/25 17:15 BREATHING/ TACHYCARDIA ibuprofen Allergy Severe SWELLING Verified 03/06/25 17:15 TO MOUTH AND LIPS levofloxacin Allergy Intermediate Nightmare Verified 03/06/25 17:15 Penicillins Allergy Mild Rash Verified 03/06/25 17:15 Review of Systems Review of Systems Systems Reviewed: All systems reviewed, normal except as documented Past Medical History Past Medical History CARDIAC: Positive Cardiac Disorders, Cardiac Arrhythmia, Atrial Fibrillation, Atherosclerotic Heart Disease, Hypercholesterolemia, Cardiomyopathy and Hypertension RESPIRATORY: Positive Pneumonia MUSCULOSKELETAL: Positive Arthritis ENT: Positive Cataracts and Glaucoma Family History FAMILY HISTORY: Positive Family Cardiac Disorders, Family Gastrointestinal Problems, Family Cancer and Family Surgery Social History SMOKING STATUS: Former smoker ED Exam Narrative Physical exam: Refer to HPI Course Course Course Narrative: CXR is ordered for determining the etiology of shortness of breath. Quality Measures none Orders Category Date Time Status Information Resources Manager STAT Care 03/06/25 17:32 Completed Continuous Pulse Oximetry ONCE Care 03/06/25 17:32 Completed EKG (ED ONLY) *Do not use* NOW Care 03/06/25 17:15 Completed Insert IV STAT Care 03/06/25 17:32 Completed Straight [In and Out Catheter] X1 Care 03/06/25 18:43 Completed EKG (ED Only) Stat Exams 03/06/25 17:15 Draft XR chest 1V portable Stat Exams 03/06/25 17:32 Completed XR chest 1V portable Stat Exams 03/06/25 18:30 Stop Req B-Type Natriuretic Peptide Stat Lab 03/06/25 18:01 Completed CBC Stat Lab 03/06/25 18:01 Completed Comprehensive Metabolic Panel Stat Lab 03/06/25 18:01 Completed Lipase Stat Lab 03/06/25 18:01 Completed Magnesium Stat Lab 03/06/25 18:01 Completed Partial Thromboplastin Time Stat Lab 03/06/25 18:01 Completed Prothrombin Time with INR Stat Lab 03/06/25 18:01 Completed Troponin I Stat Lab 03/06/25 18:01 Completed UA, C/S IF [Urinalysis, C/S if Indicated] Stat Lab 03/06/25 20:15 Completed Magnesium Sulfate 2 GM Ivpb [Magnesium Sulfate Ivpb] Med 03/06/25 18:44 Discontinued 2 gm in 50 ml IV X1 Metoprolol Tartrate Inj [Lopressor Inj] Med 03/06/25 18:29 Discontinued 2.5 mg IVP X1 ONE Metoprolol Tartrate [Lopressor] Med 03/06/25 18:29 Discontinued 50 mg PO X1 ONE Vital Signs Vital signs: Vital Signs Temperature 98.1 F 03/06/25 17:20 Pulse Rate 107 H 03/06/25 17:20 Respiratory Rate 19 03/06/25 17:20 Blood Pressure 160/87 H 03/06/25 17:20 Pulse Oximetry (%) 96 03/06/25 17:20 Oxygen Delivery Method Room Air 03/06/25 17:20 Shortness of Breath / Dyspnea MDM Narrative MDM Narrative:: Scribe Attestation: I, Maryana Mendoza, am scribing for and in the presence of Dr. Byrd. Provider Notation: Although this document has been carefully reviewed, there may still be some phonetic and other typographical errors.? These errors are purely grammatical due to imperfections in the software program and should not be construed in any way to? compromise the substance of the patient's medical care during this visit. 64 y/o male with Hx of Atherosclerotic Heart Disease, HTN, and recent A-Fib with RVR presents with shortness of breath and dizziness x few hours. Patient had an elevated blood pressure of 160/93 mmHg and heart rate of 113 at home. Denies chest pain and fever. No other complaints. Patient data External records reviewed:: [facility] previous records (Reviewed prior ED records from 02/18/25. Patient was seen for Atrial fibrillation.) Clinical information provided by:: patient and family (Daughter) Social determinants that could affect healthcare access:: none Patient has the following chronic illnesses:: Cardiac Arrhythmia, Atrial Fibrillation, Atherosclerotic Heart Disease, Hypercholesterolemia, Cardiomyopathy, Hypertension, Arthritis, Cataracts and Glaucoma How is presenting disease/condition affected by chronic disease/condition?: exacerbated by Evaluation data The following diagnostics were reviewed and interpreted by me:: lab results, radiology exam(s) and EKG tracing(s) Lab and/or radiology exams considered but not ordered:: None Interpretation Summary: I reviewed all diagnostic test results: My interpretation of the EKG is: Atrial fibrillation (108 bpm). My interpretation of the chest x-ray is no acute findings. Blood tests and urine tests unremarkable, except Mg 1.4. Medications / Prescriptions Medications or Prescriptions considered but not ordered:: None Medication administrations:: Medication Administration History Discontinued Medications Magnesium Sulfate (Magnesium Sulfate Ivpb) 2 gm in 50 mls @ 25 mls/hr IV X1 ONE Stop: 03/06/25 20:43 Last Infusion: 03/06/25 20:38 Dose: Infused Documented By: Admin: 03/06/25 19:10 Dose: 25 mls/hr Documented By: Metoprolol Tartrate (Metoprolol Tartrate Inj 1 Mg/Ml Amp 5 Ml) 2.5 mg IVP X1 ONE Stop: 03/06/25 18:30 Last Admin: 03/06/25 19:11 Dose: 2.5 mg Documented By: Metoprolol Tartrate (Metoprolol Tartrate 25 Mg Tablet) 50 mg PO X1 ONE Stop: 03/06/25 18:30 Last Admin: 03/06/25 19:11 Dose: 50 mg Documented By: Lopressor 50 mg orally, Lopressor 2.5 mg IV, Magnesium sulfate 2 G IV. Consultations Consultation(s) initiated? (list below): No Diagnosis Shortness of Breath Differential Diagnosis: acute exacerbation of chronic obstructive airways disease, congestive heart failure, community acquired pneumonia, pulmonary embolism and other (Atrial fibrillation with RvR, PNA, Hypomagnesia) Most likely diagnosis given after review of the tests above:: Atrial fibrillation, HTN Admission Indicated Admission indicated?: not indicated Explain why admission is indicated or not indicated:: And no condition needing emergent intervention Admission Request Was there a request for admission?: No Admission Attestation Admission request attestation: With significant improvement and no condition needing emergent intervention, there was no indication for admission. Disposition Plan Disposition Plan: Discharge Discharge Attestation Discharge Attestation: The patient and all family members were given an opportunity to ask questions and understood the discharge instructions. Discharge instructions specifically effects, indications for sooner follow up or return to the emergency department, and the expected course of current diagnosis. Patient condition: Stable Discharge Plan Plan Patient Disposition: HOME (Self Care) Prescriptions/Referrals Prescriptions/Med Rec: New metoprolol succinate 50 mg tablet extended release 24 hr 50 mg PO BID Qty: 180 0RF No Action Amlodipine Besylate 10 MG tablet 10 mg PO QDAY Qty: 30 Aspirin (Adult Low Dose Aspirin) 81 MG TABLET.DR 81 mg PO QDAY Qty: 30 cyclobenzaprine 10 mg tablet 10 mg PO TID PRN (Reason: muscle spasm) Qty: 30 0RF metoprolol succinate 25 mg tablet extended release 24 hr 25 mg PO DAILY Patient Comments: patient has not started med, new prescription cefepime 2 gram recon soln 2 g IV Q8H Referrals: Gee Segal [Primary Care Provider] - In 1 week Problem List Clinical Impression: Atrial fibrillation, Hypertension Patient/Caregiver Discharge Instructions Discharge Activity: activity as tolerated Education Materials: ED Atrial Fibrillation, ED Hypertension, Established Additional Instructions: Discharge Instructions from Dr. Byrd printed for you: 1. Fortunately, there is no life-threatening condition. Such as heart attack. 2. Increase metoprolol from 1/2 50 mg pill 2X daily to entire 50 mg 2X daily. This will help lower BP and heart rate. 3. Continue current care with private doctors. 4. Seek immediate medical care with worsening or with any concerns. Instrucciones de franck del Dr. Byrd impresas para usted: 1. Afortunadamente, no presenta ninguna afecci?n potencialmente mortal, ghazala un infarto. 2. Aumente la dosis de metoprolol de ? pastilla de 50 mg dos veces al d?a a la dosis completa de 50 mg dos veces al d?a. Sentinel ayudar? a reducir la presi?n arterial y la frecuencia card?atul. 3. Contin?e con rod tratamiento m?dico privado. 4. Busque atenci?n m?dica inmediata si presenta empeoramiento o si tiene alguna inquietud. Print Language: Citizen Of [place] Stand Alone Forms: Hilda Award Info., Patient Portal Info Letter
[2025-03-06 18:29] LABS: B-Type Natriuretic Peptide 55 pg/mL (0-100)
[2025-03-06 18:31] LABS: Alanine Aminotransferase 14 U/L (10-49); Albumin, Serum 4.1 gm/dL (3.4-4.8); Albumin/Globulin Ratio 1.4 (1.2-2.2); Alkaline Phosphatase 95 U/L (46-116); Anion Gap 11 (7-16); Aspartate Amino Transferase 14 U/L (0-34); BUN/Creatinine Ratio 14 Ratio (12-20); Bilirubin,Total 0.4 mg/dL (0.3-1.2); Blood Urea Nitrogen 13 mg/dL (9-23); Calcium 9.1 mg/dL (8.3-10.6); Calcium (Corrected) 9.1 mg/dL (8.5-10.1); Carbon Dioxide 25.4 mMol/L (20.0-31.0); Chloride 102 mMol/L (98-107); Creatinine (Component) 0.9 mg/dL (0.6-1.3); Estimated Creatinine Clearance 73.1 mL/min (>60); Globulin 2.9 gm/dL (2.3-3.5); Glucose 162 mg/dL (74-106); Lipase 39 U/L (12-53); Magnesium 1.4 mg/dL (1.6-2.6); Osmolality,Calculated 279 (275-295); Potassium 4.2 mMol/L (3.4-5.1); Sodium 138 mMol/L (136-145); Total Protein 7.0 gm/dL (5.7-8.2); Troponin I < 0.020 ng/mL (0.0-0.045); eGFR > 60 See Note
[2025-03-06 18:35] LABS: INR 1.1 (0.9-1.3); Partial Thromboplastin Time 28.7 Seconds (22.0-36.0); Prothrombin Time 12.1 Seconds (9.0-12.2)
[2025-03-06 18:42] VITALS: BP 148/85; PULSE 110; RESP 20; TEMP 36.9; O2SAT 96
[2025-03-06 18:51] VITALS: PULSE 100
[2025-03-06] MEDS: Magnesium Sulfate 2 GM Ivpb 2 GM/50 ML BAG IV (19:10)
[2025-03-06 19:11] VITALS: BP 176/98; PULSE 103; PULSE 91
[2025-03-06] MEDS: METOPROLOL TARTRATE INJ 1 MG/ML AMP 5 ML 2.5 MG IVP (19:11)
[2025-03-06] MEDS: METOPROLOL TARTRATE 25 MG TABLET 50 MG PO (19:11)
[2025-03-06 20:00] VITALS: BP 118/78; PULSE 71; RESP 24; TEMP 37; O2SAT 96
--- NOTE | 2025-03-06 20:09 | PC.NURSE ---
Pt provided with a urinal and encouraged to provide a UA sample.
[2025-03-06 20:21] LABS: Collection Type, Urine Clean Catch; Squamous Epithelial Cell,Urine 0 /hpf (0-5); WBC,Urine 0 /hpf (0-5)
[2025-03-06 20:36] LABS: Bilirubin,Urine Negative (Negative); Blood,Urine 1+ (Negative); Clarity,Urine Clear (Clear/Hazy); Color,Urine Lt-Yellow (Lt Yel-Yel); Culture Indicated,Urine Not Indicated; Glucose, Urine 4+ (Negative); Ketones,Urine Negative (Negative); Leukocyte Esterase,Urine Negative (Negative); Nitrite,Urine Negative (Negative); PH,Urine 6.0 (5.0-7.0); Protein,Urine Negative (Neg - Trace); RBC,Urine 4 /hpf (0-3); Specific Gravity,Urine 1.028 (1.001-1.035); Urobilinogen,Urine Negative mg/dL (0.0-1.0)
== END 2025-03-06 20:40 | disposition home or self-care (01) ==
PROVIDERS: Nurse Practitioner Primary Care; Emergency Provider Emergency Medicine; PCP Physician Assistant
DX: I48.91 Unspecified atrial fibrillation (principal); I10 Essential (primary) hypertension; E78.00 Pure hypercholesterolemia, unspecified; I25.10 Atherosclerotic heart disease of native coronary artery without angina pectoris; I42.9 Cardiomyopathy, unspecified; Z87.891 Personal history of nicotine dependence
CPT/HCPCS: 36415; 71045; 80053; 81001; 83690; 83735; 83880; 84484; 85025; 85610; 85730; 93005; 96374; 99284; J3475; J3490; A9270

== ENCOUNTER 2025-03-10 15:17 | Inpatient (IN) | payer MEDICAID, SELFPAY ==
[2025-03-10 15:38] VITALS: BP 142/92; PULSE 96; RESP 18; TEMP 36.9; O2SAT 96
[2025-03-10 17:49] VITALS: BP 165/105; O2SAT 94
--- NOTE | 2025-03-10 18:30 | EDNOTE_ITS ---
Lower Extremity Injury RME/HPI General Chief Complaint: Extremity Injury, Lower Stated Complaint: WHOLE L) LEG DVT; SENT BY DR PARRY Time Seen by Provider: 03/10/25 18:26 Arrival date/time: 03/10/25 15:17 RME / HPI RME / HPI Narrative: Dr. Jarrett?s Main ED Evaluation: 64yo male with a history of AHD, HTN, aFib on Eliquis presents to the ED after being sent over by our radiologist, Dr. Whitmore. Patient states he's been having BLE swelling since October. He had an outpatient US done today and received a call from the radiologist stating he had a DVT and was told to come in for evaluation. Patient denies any chest pain, sh ortness of breath, or LLE pain. Related Data Home Medications ?Medication ?Instructions ?Recorded ?Confirmed Amlodipine Besylate 10 mg PO QDAY ##30 06/14/16 03/10/25 Held on 03/10/25. Instructions: Doctor's Order Aspirin (Adult Low Dose Aspirin) 81 mg PO QDAY ##30 03/10/25 Held on 03/10/25. Instructions: Doctor's Order metoprolol succinate 25 mg 50 mg PO Q12H 02/20/2502/17 tablet,extended release 24 hr alprazolam 0.5 mg tablet (Xanax) 0.5 mg PO BID PRN anx iety 03/10/25 03/10/25 amiodarone 200 mg tablet 200 mg PO Q12H 03/10/2502/17 apixaban 5 mg tablet (Eliquis) 5 mg PO Q12H 03/10/25 0 03/10/25 cefuroxime axetil 250 mg tablet 250 mg PO Q12H 5 03/10/25 empagliflozin 10 mg tablet 10 mg PO QDAY 03/10/2502/17 (Jardiance) levalbuterol tartrate 45 2 puff inhalation Q6H PRN 03/10/25 mcg/actuation aerosol inhaler shortness of breath or w heezing metronidazole 500 mg tablet 500 mg PO Q8H 03/10/25 Previous Rx's ?Medication ?Instructions ?Recorded cyclobenzaprine 10 mg tablet 10 mg PO TID PRN muscle s pasm #30 11/09/24 Held on 03/10/25. tabs Instructions: Doctor's Order cefepime 2 gram solution for 2 g IV Q8H 02/22/25 injection metoprolol succinate 50 mg 50 mg PO BID #180 tabs 02/16 05/13 tablet,extended release 24 hr Held on 03/10/25. Instructions: Doctor's Order Allergies Allergy/AdvReac Type Severity Reaction Status Date / Time amoxicillin Allergy Severe Swelling Verified 03/10/25 15:21 of the Eye caffeine Allergy Severe DIFFICULTY Verified 03/10/25 15:21 BREATHING/ TACHYCARDIA ibuprofen Allergy Severe SWELLING Verified 03/10/25 15:21 TO MOUTH AND LIPS levofloxacin Allergy Intermediate Nightmare Verified 03/10/25 15:21 Penicillins Allergy Mild Rash Verified 03/10/25 15:21 Review of Systems Review of Systems Systems Reviewed: All systems reviewed, normal except as documented Past Medical History Past Medical History CARDIAC: Positive Cardiac Disorders, Cardiac Arrhythmia, Atrial Fibrillation, Atherosclerotic Heart Disease, Hypercholesterolemia, Cardiomyopathy and Hypertension; Negative Myocardial Infarction, Angina, Heart Murmur, Coronary Artery Disease, Peripheral Vascular Disease, Aneurysm, Congestive Heart Failure, Congenital Heart Disease, Valvular Heart Disease, Rheumatic Fever, Edema, Pericarditis, Cellulitis, Deep Vein Thrombosis, Hypotension or Varicose Veins RESPIRATORY: Positive Pneumonia; Negative Chronic Obstructive Pulmonary Disease (COPD) GENITOURINARY: Negative Renal Disease MUSCULOSKELETAL: Positive Arthritis ENT: Positive Cataracts and Glaucoma ENDOCRINE: Negative Diabetes Mellitus Type 1 or Diabetes Mellitus Type 2 OTHER HISTORY: Negative Autoimmune Disease or Falls Family History FAMILY HISTORY: Positive Family Cardiac Disorders, Family Gastrointestinal Probl ems, Family Cancer and Family Surgery; Negative Family Psychiatric Problems, Family Respiratory Disorders or Family Anesthesia Reaction Surgical History SURGICAL: Negative Pacemaker Social History SMOKING STATUS: Never smoker ED Exam Narrative Physical exam: GENERAL APPEARANCE: alert and oriented x 4, well-developed, well-nourished, no acute distress VITALS: All vitals were reviewed and the pulse ox is 96% on room air, which is normal according to my interpretation. HEENT: Normocephalic, atraumatic; pupils equal, round, reactive to light; EOMI; mucous membranes pink, moist; oropharynx clear NECK: Supple LUNGS: CTABL; no wheezes, no rales, no rhonchi HEART: Regular rate, regular rhythm; normal S1, S2; no murmurs ABDOMEN: non distended; normal BS; soft, no tenderness, no guarding, no rebound; no masses, no organomegaly, no hernia BACK: no CVA tenderness EXTREMITIES: atraumatic; no edema NEUROLOGIC: awake; alert and oriented x4; cranial nerves II-XII grossly intact; no focal sensory or motor deficits PSYCHIATRIC: appropriate mood and affect SKIN: warm, dry, normal color; no rashes Course Quality Measures none Orders Category Date Time Status Analytics Lead NOW Care 03/10/25 18:30 Active EKG (ED ONLY) *Do not use* NOW Care 03/10/25 18:30 Completed EKG (ED Only) Stat Exams 03/10/25 18:30 Draft CBC Stat Lab 03/10/25 18:56 Completed Comprehensive Metabolic Panel Stat Lab 03/10/25 18:56 Completed Magnesium Stat Lab 03/10/25 18:56 Completed PTT [Partial Thromboplastin Time] Q6H Lab 03/10/25 20:15 Ordered Partial Thromboplastin Time Stat Lab 03/10/25 18:56 Completed Prothrombin Time with INR Stat Lab 03/10/25 18:56 Completed Heparin Inj Med 03/10/25 18:30 Discontinued 2,850 unit IV X1 ONE Heparin/D5w 25K 250 ML Ivpb [Heparin in D5w Ivpb] Med 03/10/25 18:30 Active 25,000 unit in 250 ml IV 18 units/kg/hr Vital Signs Vital signs: Vital Signs Temperature 98.4 F 03/10/25 15:38 Pulse Rate 96 03/10/25 15:38 Respiratory Rate 18 03/10/25 15:38 Blood Pressure 142/92 H 03/10/25 15:38 Pulse Oximetry (%) 96 03/10/25 15:38 Oxygen Delivery Method Room Air 03/10/25 15:38 Extremity Injury, Lower MDM Narrative MDM Narrative:: Scribe Attestation: 03/10/25 - Amari, Vonda Tran am scribing for and in the presence of Dr. Jarrett. 1827: Spoke with Dr. Whitmore, our radiologist, regarding the patient's outpatient US results. States the patient can do thrombolytic therapy on the floor. 2056: Discussed case with the resident physician, attending Dr. Elias from Hospitalist service regarding admission. Discussed patients ED course, exam findings, labs, and radiology results. The Hospitalist agrees to accept the patient for admission. Patient data External records reviewed:: [facility] previous records (Per chart review, patient was seen here on 03/06/25 for aFib. Reviewed outpatient US from today.) Clinical information provided by:: patient Social determinants that could affect healthcare access:: none Patient has the following chronic illnesses:: AHD, HTN, aFib How is presenting disease/condition affected by chronic disease/condition?: uneffected by Evaluation data The following diagnostics were reviewed and interpreted by me:: lab results and EKG tracing(s) Lab and/or radiology exams considered but not ordered:: none Interpretation Summary: WBC 11.4, CMP normal. EKG done at 1838, aFib, rate of 83, Q wave in lead III, low voltage, diffuse ST segment flattening, according to my interpretation. OUTPATIENT US: [facility] Report Signed Patient: PIPPA ALICEA. Record#: [id number] Birthdate: 1960 Age/Sex: 64 / M Location: [facility] Attending Dr: Gee Segal Ordering Physician: Gee Bolanos Date of Service: 03/10/25 Procedure(s): US venous doppler [facility] Accession Number(s): [id number] cc: Gee Bolanos; Wil Whitmore MD~ Examination: Duplex scan of the lower extremity, unilateral left Date and time of exam: March 10, 2025 1444 hours INDICATIONS: Left calf swelling beginning 5 months ago Technique: Duplex scan of the extremity veins using B-mode/grayscale imaging and Doppler spectral analysis and color flow Attention is directed to internal echogenicity, compression and augmentation involving these veins, color flow assessment, spectral analysis Findings: Extensive occlusive deep vein thrombus left lower extremity, including left common femoral left superficial femoral left popliteal peroneal and posterior tibial veins IMPRESSION: Extensive occlusive deep vein thrombus left lower extremity Dictated By: Wil Whitmore MD Signed By: <Electronically signed by Wil Whitmore MD in OV> 03/10/25 1506 Medications / Prescriptions Medications or Prescriptions considered but not ordered:: none Medication administrations:: Medication Administration History Heparin Sodium/Dextrose (Heparin In D5w Ivpb) 25,000 unit in 250 mls @ 12.9 mls/hr IV .[id number] TU; Protocol Stop: 03/24/25 18:29 Last Admin: 03/10/25 20:11 Dose: 18 units/kg/hr, 12.9 mls/hr Documented By: CG Co-signed By: DT Discontinued Medications Heparin Sodium (Porcine) (Heparin Sod Inj 5000 Unit/Ml Vial) 2,850 unit 40 unit/kg (2850 unit) IV X1 ONE; Protocol Stop: 03/10/25 18:31 Last Admin: 03/10/25 20:09 Dose: 2,850 unit Documented By: CG Co-signed By: ALONDRA Comments: Right AC through 20g IV over 2 minutes see above Consultations Consultation(s) initiated? (list below): Yes Diagnosis Extremity Injury, Lower Differential Diagnosis: other (DVT, cellulitis, arterial occlusion) Most likely diagnosis given after review of the tests above:: see clinical impression below Admission Indicated Admission indicated?: indicated Admission Request Was there a request for admission?: Yes Admission Attestation Admission request attestation: Discussed case with [] from Hospitalist service regarding admission. Discussed patients ED course, exam findings, labs, and radiology results. The Hospitalist [agrees,declines] to accept the patient for admission. Disposition Plan Disposition Plan: Admit Discharge Plan Plan Patient Disposition: Admit Acute Care w/in Hospital Prescriptions/Referrals Prescriptions/Med Rec: No Action Amlodipine Besylate 10 MG tablet 10 mg PO QDAY Qty: 30 Aspirin (Adult Low Dose Aspirin) 81 MG TABLET.DR 81 mg PO QDAY Qty: 30 cyclobenzaprine 10 mg tablet 10 mg PO TID PRN (Reason: muscle spasm) Qty: 30 0RF metoprolol succinate 25 mg tablet extended release 24 hr 50 mg PO Q12H Patient Comments: patient has not started med, new prescription cefepime 2 gram recon soln 2 g IV Q8H metoprolol succinate 50 mg tablet extended release 24 hr 50 mg PO BID Qty: 180 0RF metronidazole 500 mg tablet 500 mg PO Q8H amiodarone 200 mg tablet 200 mg PO Q12H Eliquis 5 mg tablet 5 mg PO Q12H cefuroxime axetil 250 mg tablet 250 mg PO Q12H Jardiance 10 mg tablet 10 mg PO QDAY levalbuterol tartrate 45 mcg/actuation HFA aerosol inhaler 2 puff INHALATION Q6H PRN (Reason: shortness of breath or wheezing) alprazolam [Xanax] 0.5 mg tablet 0.5 mg PO BID PRN (Reason: anxiety) Referrals: Gee Segal [Primary Care Provider] - In 1 week Problem List Clinical Impression: Deep vein thrombosis (DVT) of left lower extremity Patient/Caregiver Discharge Instructions Print Language: Kazakh Stand Alone Forms: Hilda Award Info., Patient Portal Info Letter
--- NOTE | 2025-03-10 18:30 | EKG_ITS ---
[facility] Test Date: 2025-03-10 Pat Name: PIPPA ALICEA Department: Room: - Gender: Male Sample Grinder: : 1960 Requested By: Oneyda Sandy Order Number: [id number] Reading MD: Oneyda Sandy Measurements Intervals [place] Rate: 83 P: NM: QRS: 4 QRSD: 88 T: -17 QT: 380 QTc: 449 Interpretive Statements ATRIAL FIBRILLATION NONSPECIFIC T-WAVE ABNORMALITY ABNORMAL RHYTHM ECG Compared to ECG 03/06/2025 17:22:35 No significant changes /store/S0/[id number]/ecg/[id number].pdf
[2025-03-10 18:36] VITALS: BP 129/80; PULSE 91; RESP 22; TEMP 36.8; O2SAT 97
[2025-03-10 18:48] LABS: Basophils # (Auto) 0.1 Thou/mm3 (0.0-0.2); Basophils % (Auto) 0 % (0-2.5); Eosinophils # (Auto) 0.1 Thou/mm3 (0.0-0.5); Eosinophils % (Auto) 1 % (0-10); Hematocrit 48.0 % (41.0-53.0); Hemoglobin 16.3 g/dL (13.5-16.0); Immature Granulocytes Auto 0.15 Thou/mm3 (0.00-0.00); Lymphocytes # (Auto) 1.9 Thou/mm3 (1.0-4.8); Lymphocytes % (Auto) 16 % (10-50); Mean Corpuscular HGB Conc 34.0 g/dl (31.0-37.0); Mean Corpuscular Hemoglobin 26.5 pg (25.0-35.0); Mean Corpuscular Volume 78 fL (80-100); Monocytes # (Auto) 0.9 Thou/mm3 (0.0-0.8); Monocytes % (Auto) 8 % (0-12); Neutrophils # (Auto) 8.4 Thou/mm3 (1.8-7.7); Neutrophils % (Auto) 74 % (37-80); Nucleated Red Blood Cell # 0.00 Thou/mm3 (0.00-0.00); Nucleated Red Blood Cell % 0 /100 WBC (0); Platelet Count 305 Thou/mm3 (140-440); RDW Standard Deviation 46.5 fL (35.1-43.9); Red Blood Count 6.15 Miln/mm3 (4.50-5.90); White Blood Count 11.4 Thou/mm3 (3.8-10.6)
[2025-03-10 19:22] LABS: INR 1.1 (0.9-1.3); Partial Thromboplastin Time 28.5 Seconds (22.0-36.0); Prothrombin Time 12.3 Seconds (9.0-12.2)
[2025-03-10 19:29] LABS: Alanine Aminotransferase 14 U/L (10-49); Albumin, Serum 4.4 gm/dL (3.4-4.8); Albumin/Globulin Ratio 1.8 (1.2-2.2); Alkaline Phosphatase 76 U/L (46-116); Anion Gap 11 (7-16); Aspartate Amino Transferase 19 U/L (0-34); BUN/Creatinine Ratio 26 Ratio (12-20); Bilirubin,Total 0.5 mg/dL (0.3-1.2); Blood Urea Nitrogen 21 mg/dL (9-23); Calcium 9.9 mg/dL (8.3-10.6); Calcium (Corrected) 9.9 mg/dL (8.5-10.1); Carbon Dioxide 23.2 mMol/L (20.0-31.0); Chloride 105 mMol/L (98-107); Creatinine (Component) 0.8 mg/dL (0.6-1.3); Globulin 2.5 gm/dL (2.3-3.5); Glucose 105 mg/dL (74-106); Magnesium 2.1 mg/dL (1.6-2.6); Osmolality,Calculated 280 (275-295); Potassium 4.2 mMol/L (3.4-5.1); Sodium 139 mMol/L (136-145); Total Protein 6.9 gm/dL (5.7-8.2); eGFR > 60 See Note
[2025-03-10] MEDS: HEPARIN SOD INJ 5000 UNIT/ML VIAL 2850 UNIT IV (20:09)
[2025-03-10] MEDS: Heparin/D5w 25K 250 ML Ivpb 25,000 UNIT/250 ML BAG 12.9 UNIT IV (20:11)
[2025-03-10 21:22] VITALS: BP 116/78; PULSE 77; RESP 20; TEMP 37; O2SAT 95
--- NOTE | 2025-03-10 21:51 | XR_ITS ---
Examination: Duplex scan of the lower extremity, unilateral right Date and time of exam: March 10, 2025 1045 hours INDICATIONS: Right calf swelling and pain beginning 5 months ago Technique: Duplex scan of the extremity veins using B-mode/grayscale imaging and Doppler spectral analysis and color flow Attention is directed to internal echogenicity, compression and augmentation involving these veins, color flow assessment, spectral analysis Findings: Major deep venous structures in the extremity demonstrate normal course and caliber. There is no evidence of deep vein thrombosis. Normal color flow and spectral analysis Impression: Negative for DVT..
--- NOTE | 2025-03-10 21:54 | PD.RESHP ---
Documentation for date of: 03/10/25 HPI History of Present Illness Chief complaint: Clot in left leg History of present illness: 64-year-old male with past medical history of hypertension, prediabetes, recent right-sided pleural effusion with loculated effusion requiring VATS and chest tube placement at [facility] (discharged on 03/04/2025), A-fib on Eliquis presenting to the ED on 03/10 after he was completing an ultrasound Doppler of the left leg for lower extremity swelling and found to have a substantial DVT on multiple veins. Patient was told by radiologist to present to the ED for treatment and workup of blood clot. Patient's daughter is bedside and corroborated story. Apparently patient presented to the PCP about 3 months ago at which point he had lower extremity swelling on his left leg. PCP ordered Doppler ultrasound which was just completed today 03/10. Patient has been having the swelling since that time but is unclear whether the blood clot occurred during that period or recently. Patient was admitted on 02/18/2025 for new onset atrial fibrillation and started on Eliquis and he has been taking it as prescribed. Patient also has history of abusing testosterone for about 1 year and has been told in the past by PCP that he needs to do frequent blood draws for thick blood . Patient also had recent surgery which could potentially be exacerbating his current condition. Otherwise, patient denies having any concerning symptoms in general he states that he feels fine. Medical history: As stated above Surgical history: Right knee and shoulder surgery, hernia repair Medications: Pending med rec Allergies: Caffeine causes difficulty breathing, tachycardia, ibuprofen causes swelling in the mouth and lips, penicillin causes rash Family history: Noncontributory Social history: Patient lives in [place] with and daughter, denies smoking tobacco, alcohol use or illicit drug use. Travel to [place] in September ROS: All 12 systems assessed and the patient denies unless otherwise stated in HPI In the ED, patient presented mildly hypertensive 142/92, heart rate 96, respiratory 18, afebrile satting 96 on room air. Pertinent lab findings include WBC 11.4, RBC 6.15, hemoglobin of 16.3, platelet of 305, PT of 12.3, INR 1.1, BUN 21, creatinine 0.8, EKG showed atrial fibrillation with nonspecific T wave changes and DVT of the left extremity showed extensive occlusive DVT in the left lower extremity including the left common femoral, left superficial femoral, left popliteal peroneal and posterior tibial veins. Right-sided Doppler ultrasound was also ordered for complete workup. Patient will be admitted for workup and treatment of DVT requiring IV heparin drip and IR is planning on doing thrombectomy. Exam Vital Signs Temp Pulse Resp BP Pulse Ox O2 Del Method 98.6 F 77 20 116/78 95 Room Air 03/10/25 21:22 03/10/25 21:22 03/10/25 21:22 03/10/25 21:22 03/10/25 21:22 03/10/25 21:22 Narrative Exam Physical Exam: GENERAL: Awake, answering questions appropriately, appears stated age HEENT: NC/AT. Moist mucosa. PERRLA/EOMI. CARDIO: Heart RRR, no obvious murmurs, no JVD. PULM: No coughing or visible SOB. Lungs CTA B/L. GI: Abdomen soft, NT/ND, +BS. SKIN/MSK/EXT: No wounds/discoloration/rashes/edema/amputations noted. +Pedal pulses present B/L. NEURO: Oriented x3, Moves extremities x4, no focal neurologic deficits noted. Results: Labs 03/10/25 18:56 03/10/25 18:56 Labs: Short CBC 03/10/25 Range/Units 18:56 WBC 11.4 H (3.8-10.6) Thou/mm3 Hgb 16.3 H (13.5-16.0) g/dL Hct 48.0 (41.0-53.0) % Plt Count 305 (140-440) Thou/mm3 BMP 03/10/25 18:56 Sodium 139 Potassium 4.2 Chloride 105 Carbon Dioxide 23.2 BUN 21 Creatinine 0.8 Glucose 105 Calcium 9.9 Liver Function 03/10/25 Range/Units 18:56 Total Bilirubin 0.5 (0.3-1.2) mg/dL AST 19 (0-34) U/L ALT 14 (10-49) U/L Alkaline Phosphatase 76 (46-116) U/L Albumin 4.4 (3.4-4.8) gm/dL Quality Measures Quality Measures none Medications Home Medications and Allergies Home Medications ?Medication ?Instructions ?Recorded ?Confirmed ?Type Amlodipine Besylate 10 mg PO QDAY ##30 06/14/16 03/10/25 History Held on 03/10/25. Instructions: Doctor's Order Aspirin (Adult Low Dose Aspirin) 81 mg PO QDAY ##30 06/14/16 03/10/25 History Held on 03/10/25. Instructions: Doctor's Order metoprolol succinate 25 mg 50 mg PO Q12H 02/20/25 03/10/25 History tablet,extended release 24 hr alprazolam 0.5 mg tablet (Xanax) 0.5 mg PO BID PRN anxiety 03/10/25 03/10/25 History amiodarone 200 mg tablet 200 mg PO Q12H 03/10/25 03/10/25 History apixaban 5 mg tablet (Eliquis) 5 mg PO Q12H 03/10/25 03/10/25 History cefuroxime axetil 250 mg tablet 250 mg PO Q12H 03/10/25 03/10/25 History empagliflozin 10 mg tablet 10 mg PO QDAY 03/10/25 03/10/25 History (Jardiance) levalbuterol tartrate 45 2 puff inhalation Q6H PRN 03/10/25 03/10/25 History mcg/actuation aerosol inhaler shortness of breath or wheezing metronidazole 500 mg tablet 500 mg PO Q8H 03/10/25 03/10/25 History Allergies Allergy/AdvReac Type Severity Reaction Status Date / Time amoxicillin Allergy Severe Swelling Verified 03/10/25 15:21 of the Eye caffeine Allergy Severe DIFFICULTY Verified 03/10/25 15:21 BREATHING/ TACHYCARDIA ibuprofen Allergy Severe SWELLING Verified 03/10/25 15:21 TO MOUTH AND LIPS levofloxacin Allergy Intermediate Nightmare Verified 03/10/25 15:21 Penicillins Allergy Mild Rash Verified 03/10/25 15:21 Visit Medications Acetaminophen (Acetaminophen 325 Mg Tablet) 650 mg PO Q6H PRN PRN Reason: PAIN SCALE 1-3 (mild Stop: 04/09/25 21:48 Alprazolam (Alprazolam 0.25 Mg Tablet) 0.5 mg PO BID PRN PRN Reason: ANXIETY Stop: 03/16/25 08:59 Amiodarone HCl (Amiodarone Hcl 200 Mg Tablet) 200 mg PO BID TU Stop: 04/10/25 08:59 Dextrose (Dextrose 50%-Water Inj 50 Ml Syringe) 25 ml IV Q15MIN PRN PRN Reason: BG 50-70 responsive npo pt Stop: 04/09/25 21:48 Dextrose (Dextrose 50%-Water Inj 50 Ml Syringe) 50 ml IV Q15MIN PRN PRN Reason: BG <50 OR BG <70 & pt unresponsive Stop: 04/09/25 21:48 Glucagon (Glucagon Inj 1 Mg Vial) 1 mg IM Q15MIN PRN PRN Reason: BG <70, and no IV access Heparin Sodium/Dextrose (Heparin In D5w Ivpb) 25,000 unit in 250 mls @ 12.9 mls/hr IV .[id number] [facility]; Protocol Stop: 03/24/25 18:29 Last Admin: 03/10/25 20:11 Dose: 18 units/kg/hr, 12.9 mls/hr Ceftriaxone Sodium/Dextrose (Rocephin/D5w 1gm Iv Premix) 1 gm in 50 mls @ 100 mls/hr IV QDAY TU Stop: 03/17/25 21:53 Insulin Human Lispro (Insulin Lispro (Admelog) 1 Unit/0.01 Ml Unit) 0 unit SC Q6HR [facility]; Protocol Stop: 04/10/25 00:00 Levalbuterol HCl (Levalbuterol Rt 0.63 Mg/3 Ml Nebu) 0.63 mg INH Q8HR PRN PRN Reason: WHEEZING Stop: 04/09/25 21:51 Metoprolol Succinate (Metoprolol Succinate Xl 25 Mg Tabcr) 25 mg PO QDAY TU Stop: 04/10/25 08:59 Ondansetron HCl (Ondansetron Inj 2 Mg/Ml Inj 2 Ml) 4 mg IVP Q6H PRN; Protocol PRN Reason: NAUSEA OR VOMITING Stop: 04/09/25 21:48 Sennosides (Senna Tablet) 1 tab PO QDAY PRN; Protocol PRN Reason: constipation Stop: 04/09/25 21:48 Discontinued Medications Heparin Sodium (Porcine) (Heparin Sod Inj 5000 Unit/Ml Vial) 2,850 unit 40 unit/kg (2850 unit) IV X1 ONE; Protocol Stop: 03/10/25 18:31 Last Admin: 03/10/25 20:09 Dose: 2,850 unit Assessment & Plan Plan 64-year-old male with past medical history of hypertension, prediabetes, recent right-sided pleural effusion with loculated effusion requiring VATS and chest tube placement, A-fib on Eliquis presenting to the ED on 03/10 after he was completing an ultrasound Doppler of the left leg for lower extremity swelling and found to have a substantial DVT on multiple veins will be admitted for workup and treatment of DVT requiring IV heparin drip and IR is planning on doing thrombectomy. #DVT, left lower extremity #Erythrocytosis Differentials include: Hypercoagulable state, possible malignancy, testosterone use in the past, polycythemia vera less likely Patient developed left lower extremity swelling roughly 3 months ago, PCP ordered Doppler ultrasound which was just completed On examination, patient does not have any significant lower extremity edema or erythema Doppler ultrasound of the left extremity showed extensive occlusive DVT in the left lower extremity including the left common femoral, left superficial femoral, left popliteal peroneal and posterior tibial veins. Plan: Continue IV heparin drip, PT PTT and INR ordered IR is planning on doing thrombectomy in a.m. N.p.o. after midnight Consider hypercoagulable workup Right-sided Doppler ultrasound was also ordered for complete workup. #Recent VATS, for loculated effusion #Leukocytosis As stated above, patient had loculated effusion status post VATS at [facility] Patient had chest tube removed, discharged from [facility] on 03/04 Was started on Flagyl and cefuroxime Plan: Continue IV ceftriaxone Consider obtaining repeat chest x-ray #Atrial fibrillation CHADVASc of 2 Newly diagnosed with A-fib earlier this month EKG showed atrial fibrillation with nonspecific T wave changes Echo on 02/19/2025 - Normal LV size and wall thickness. Estimated EF at 55-60% RV is normal in size and systolic function. Estimated RVSP, 28 mmHg. RAP 5. Moderate MR. Mild AI and TR. Major depressive disorder Patient is on rate control metoprolol succinate 25 mg p.o. daily Eliquis 5 mg p.o. twice daily Plan: Restarted home metoprolol succinate Holding Eliquis as the patient is on IV heparin drip Tele monitoring #Jlg-[id number] type 2 diabetes Last A1c of 7.1 Patient appears to be on Jardiance 10 mg p.o. daily Plan: Sliding scale insulin #Anxiety Patient is on as needed lev albuterol for wheezing As needed alprazolam 0.5 mg p.o. twice daily Plan: Restarted home medications as needed Health Maintenance: Lines: PIV Diet: N.p.o. after midnight Bowel: Senna GI prophylaxis: None needed DVT prophylaxis: On heparin drip Dispo: Pending thrombectomy with IR, workup for hypercoagulable state Code: Full Patient seen and assessed with attending Dr. Jada Epperson, PGY-2 Internal Medicine - GME Attending Provider Attestation/Addendum I attest that I was physically present for the evaluation, physical examination, lab and imaging review of the patient with the residents. I discussed the case with the residents and agree with the findings and plans of care as documented above. After examination of the patient and review of the clinical data I feel that this patient needs admission to the hospital for further treatment/evaluation. Patient is a 64 years old male with past medical history of hypertension, prediabetes, recent right-sided pleural effusion, A-fib who presented to the ED after being called by radiology to inform that he has extensive left lower lobe extremity DVT and is indicated to have thrombectomy. Patient had lower extremity pain and swelling about 3 months ago, and was ordered to have outpatient Doppler ultrasound which she completed today and was found to have multiple occlusive DVTs. Patient also stated that he has history of use of testosterone and was told by his PCP to have frequent blood draws for thick blood. He also has recent weight loss of nearly 25 pounds over the past few months. In the ED, vitals were within normal limits except for mild hypertension. Lab results show WBC of 11.4, hemoglobin 16.3, PT/INR of 12.3/1.1. EKG showed A-fib with nonspecific T wave changes. He has been on Eliquis for A-fib. We will admit the patient for extensive occlusive DVTs of left lower extremity, erythrocytosis. Patient is planned for thrombectomy tomorrow with IR. He has been started on heparin drip in the ED, we will continue with the drip. We will obtain right-sided Doppler ultrasonography. Will also obtain PT, PTT and INR. Patient may need hypercoagulable workup. Patient recently had VATS for loculated pleural effusion and was on antibiotics, we will continue with IV Rocephin. We will restart his home metoprolol for A-fib. Started on insulin regimen for diabetes. Zamzam Elias MD
[2025-03-10] MEDS: cefTRIAXone/D5w 1gm IV premix 1 GM/50 ML BAG IV (22:43)
[2025-03-10 22:48] VITALS: BMI 26.6
[2025-03-10 23:14] VITALS: BP 141/86; PULSE 99; RESP 20; TEMP 36
[2025-03-10] MEDS: INSULIN LISPRO (AdmeLOG) 1 UNIT/0.01 ML UNIT SC (23:58)
[2025-03-11] VITALS (15 sets, daily range): BP systolic 118–142; BP diastolic 65–91; PULSE 76–93; RESP 15–24; TEMP 36.1–37.3; O2SAT 94–98
[2025-03-11 02:49] LABS: Basophils # (Auto) 0.0 Thou/mm3 (0.0-0.2); Basophils % (Auto) 0 % (0-2.5); Eosinophils # (Auto) 0.1 Thou/mm3 (0.0-0.5); Eosinophils % (Auto) 1 % (0-10); Hematocrit 46.8 % (41.0-53.0); Hemoglobin 15.6 g/dL (13.5-16.0); Immature Granulocytes Auto 0.07 Thou/mm3 (0.00-0.00); Lymphocytes # (Auto) 2.9 Thou/mm3 (1.0-4.8); Lymphocytes % (Auto) 24 % (10-50); Mean Corpuscular HGB Conc 33.3 g/dl (31.0-37.0); Mean Corpuscular Hemoglobin 27.1 pg (25.0-35.0); Mean Corpuscular Volume 81 fL (80-100); Monocytes # (Auto) 0.9 Thou/mm3 (0.0-0.8); Monocytes % (Auto) 8 % (0-12); Neutrophils # (Auto) 7.9 Thou/mm3 (1.8-7.7); Neutrophils % (Auto) 66 % (37-80); Nucleated Red Blood Cell # 0.00 Thou/mm3 (0.00-0.00); Nucleated Red Blood Cell % 0 /100 WBC (0); Platelet Count 316 Thou/mm3 (140-440); RDW Standard Deviation 48.6 fL (35.1-43.9); Red Blood Count 5.75 Miln/mm3 (4.50-5.90); White Blood Count 11.9 Thou/mm3 (3.8-10.6)
[2025-03-11 03:16] LABS: Alanine Aminotransferase 14 U/L (10-49); Albumin, Serum 3.8 gm/dL (3.4-4.8); Albumin/Globulin Ratio 1.4 (1.2-2.2); Alkaline Phosphatase 74 U/L (46-116); Anion Gap 9 (7-16); Aspartate Amino Transferase 17 U/L (0-34); BUN/Creatinine Ratio 21 Ratio (12-20); Bilirubin,Total 0.4 mg/dL (0.3-1.2); Blood Urea Nitrogen 17 mg/dL (9-23); Calcium 8.9 mg/dL (8.3-10.6); Calcium (Corrected) 9.1 mg/dL (8.5-10.1); Carbon Dioxide 28.4 mMol/L (20.0-31.0); Chloride 104 mMol/L (98-107); Creatinine (Component) 0.8 mg/dL (0.6-1.3); Estimated Creatinine Clearance 82.2 mL/min (>60); Globulin 2.7 gm/dL (2.3-3.5); Glucose 156 mg/dL (74-106); Osmolality,Calculated 285 (275-295); Potassium 3.9 mMol/L (3.4-5.1); Sodium 141 mMol/L (136-145); Total Protein 6.5 gm/dL (5.7-8.2); eGFR > 60 See Note
[2025-03-11 03:17] LABS: INR 1.1 (0.9-1.3); Partial Thromboplastin Time 68.6 Seconds (22.0-36.0); Prothrombin Time 12.3 Seconds (9.0-12.2)
--- NOTE | 2025-03-11 07:22 | ESPR_ITS ---
<Statement entered by Tanvir Siu MD - 03/11/25 17:10> Patient was seen and examined at the bedside. Patient underwent catheter-based thrombolysis via heparin drip through the IR. Heparin drip will be continued. White count 11.9. Patient was notified. All labs and orders were reviewed. I discussed and supervised with the culinary internship physician who took care of this patient. I personally saw and examined the patient. I agree with most of the assessment and plan. Disclaimer: Despite multiple revisions, due to the dictation software being used, the document bellow may not be free of grammatical errors including phonetic/typographic errors. However, this does not deter from our commitment to providing health care in the patient's best interest in mind. Plan of care discussed with attending Physician Dr. erick Siu MD PGY-3 Documentation for date of: 03/11/25 Subjective Subjective Interval history: No acute events overnight plan for thombolysis with Dr. Casiano today Exam Vital Signs Temp Pulse Resp BP Pulse Ox O2 Del Method 97.3 F 78 22 H 121/76 98 Room Air 03/11/25 04:00 03/11/25 04:53 03/11/25 04:53 03/11/25 04:00 03/11/25 04:53 03/11/25 04:00 Narrative Exam GENERAL: no acute distress, AAO x3, comfortably laying in bed HEENT: Head AT/ NC. Mucous membranes moist. PERRL. CARDIOVASCULAR: RRR. Normal S1/S2, No m/r/g. No pitting edema of bilateral LEs. RESPIRATORY: CTAB. No wheezing, rhonchi, crackles. GASTROINTESTINAL: Abdomen soft, non tender no palpable masses. Bowel sounds present MUSCULOSKELETAL:? No cyanosis or edema, no visible joint swelling, LLE non edematous, non tender to palpation, NEUROLOGICAL: CN II-XII grossly intact. No focal deficits. Sensation intact, symmetric. PSYCHIATRIC: Awake and alert, not agitated, normal mood and affect. SKIN: No obvious rashes, no jaundice, normal turgor. Objective Labs 03/11/25 02:30 03/11/25 02:30 Labs: Laboratory Results - last 24 hr 03/10/25 03/11/25 18:56 02:30 WBC 11.4 H 11.9 H RBC 6.15 H 5.75 Hgb 16.3 H 15.6 Hct 48.0 46.8 MCV 78 L 81 MCH 26.5 27.1 MCHC 34.0 33.3 RDW Std Deviation 46.5 H 48.6 H Plt Count 305 316 Neut % (Auto) 74 66 Lymph % (Auto) 16 24 [place] % (Auto) 8 8 Eos % (Auto) 1 1 Baso % (Auto) 0 0 Neut # (Auto) 8.4 H 7.9 H Lymph # (Auto) 1.9 2.9 [place] # (Auto) 0.9 H 0.9 H Eos # (Auto) 0.1 0.1 Baso # (Auto) 0.1 0.0 Immature Gran # (Auto) 0.15 H 0.07 H Absolute Nucleated RBC 0.00 0.00 Immature Gran % 1 H 1 H Nucleated RBC % 0 0 PT 12.3 H 12.3 H INR 1.1 1.1 APTT 28.5 68.6 H D Sodium 139 141 Potassium 4.2 3.9 Chloride 105 104 Carbon Dioxide 23.2 28.4 Anion Gap 11 9 BUN 21 17 Creatinine 0.8 0.8 Estim Creat Clear Calc Not Performed. 82.2 eGFR > 60 > 60 BUN/Creatinine Ratio 26 H 21 H Glucose 105 156 H D Calculated Osmolality 280 285 Calcium 9.9 8.9 Corrected Calcium 9.9 9.1 Magnesium 2.1 Total Bilirubin 0.5 0.4 AST 19 17 ALT 14 14 Alkaline Phosphatase 76 74 Total Protein 6.9 6.5 Albumin 4.4 3.8 D Globulin 2.5 2.7 Albumin/Globulin Ratio 1.8 1.4 Quality Measures Quality Measures VTE prophylaxis and VTE therapy Assessment & Plan Assessment Current Active Medications: Generic Name Dose Route Start Last Admin Trade Name Freq PRN Reason Stop Dose Admin Acetaminophen 650 mg 03/10/25 21:49 Acetaminophen 325 Mg Tablet PO 04/09/25 21:48 Q6H PRN PAIN SCALE 1-3 (mild Alprazolam 0.5 mg 03/10/25 21:52 Alprazolam 0.25 Mg Tablet PO 03/16/25 08:59 BID PRN ANXIETY Amiodarone HCl 200 mg 03/11/25 09:00 Amiodarone Hcl 200 Mg Tablet PO 04/10/25 08:59 BID TU Dextrose 25 ml 03/10/25 21:49 Dextrose 50%-Water Inj 50 Ml Syringe IV 04/09/25 21:48 Q15MIN PRN BG 50-70 responsive npo pt Dextrose 50 ml 03/10/25 21:49 Dextrose 50%-Water Inj 50 Ml Syringe IV 04/09/25 21:48 Q15MIN PRN BG <50 OR BG <70 & pt unresponsive Glucagon 1 mg 03/10/25 21:49 Glucagon Inj 1 Mg Vial IM Q15MIN PRN BG <70, and no IV access Heparin Sodium/Dextrose 25,000 unit in 250 mls @ 12.9 mls/hr 03/10/25 18:30 03/11/25 03:25 Heparin In D5w Ivpb IV 03/24/25 18:29 18 units/kg/hr .[id number] TU 12.9 mls/hr Titration Protocol 18 UNITS/KG/HR Ceftriaxone Sodium/Dextrose 1 gm in 50 mls @ 100 mls/hr 03/10/25 21:54 03/10/25 22:43 Rocephin/D5w 1gm Iv Premix IV 03/17/25 21:53 100 mls/hr QDAY TU Administration Insulin Human Lispro 0 unit 03/11/25 00:00 03/11/25 05:03 Insulin Lispro (Admelog) 1 Unit/0.01 Ml Unit SC 04/10/25 00:00 Not Given Q6HR [facility] Protocol Levalbuterol HCl 0.63 mg 03/10/25 21:52 Levalbuterol Rt 0.63 Mg/3 Ml Nebu INH 04/09/25 21:51 Q8HR PRN WHEEZING Metoprolol Succinate 25 mg 03/11/25 09:00 Metoprolol Succinate Xl 25 Mg Tabcr PO 04/10/25 08:59 QDAY TU Ondansetron HCl 4 mg 03/10/25 21:49 Ondansetron Inj 2 Mg/Ml Inj 2 Ml IVP 04/09/25 21:48 Q6H PRN NAUSEA OR VOMITING Protocol Sennosides 1 tab 03/10/25 21:49 Senna Tablet PO 04/09/25 21:48 QDAY PRN constipation Protocol Plan 64-year-old male with past medical history of hypertension, prediabetes, recent right-sided pleural effusion with loculated effusion requiring VATS and chest tube placement, A-fib on Eliquis presenting to the ED on 03/10 after he was completing an ultrasound Doppler of the left leg for lower extremity swelling and found to have a substantial DVT on multiple vein, pt continues on thrombolysis tx of LLE and heparin drip. #DVT, left lower extremity #Erythrocytosis Differentials include: Hypercoagulable state, possible malignancy, testosterone use in the past, polycythemia vera less likely Patient developed left lower extremity swelling roughly 3 months ago, PCP ordered Doppler ultrasound which was just completed On examination, patient does not have any significant lower extremity edema or erythema Dx Doppler ultrasound of the left extremity showed extensive occlusive DVT in the left lower extremity including the left common femoral, left superficial femoral, left popliteal peroneal and posterior tibial veins. DVT US of RLE: no DVT Tx Continue IV heparin drip Cont LLE thrombolysis Consider hypercoagulable workup as an outpatient, given pt is currently on heparin drip #Recent VATS, for loculated effusion As stated above, patient had loculated effusion status post VATS at [facility] Patient had chest tube removed, discharged from [facility] on 03/04 Was started on Flagyl and cefuroxime Dx - CXR with Stable right pleural disease Tx - Continue IV ceftriaxone #Atrial fibrillation CHADVASc of 2 Newly diagnosed with A-fib earlier this month EKG showed atrial fibrillation with nonspecific T wave changes Echo on 02/19/2025 - Normal LV size and wall thickness. Estimated EF at 55-60% RV is normal in size and systolic function. Estimated RVSP, 28 mmHg. RAP 5. Moderate MR. Mild AI and TR. Major depressive disorder Patient is on rate control metoprolol succinate 25 mg p.o. daily Eliquis 5 mg p.o. twice daily Plan: Restarted home metoprolol succinate Holding Eliquis as the patient is on IV heparin drip Tele monitoring #Mis-veingbk-fjczdfaoe type 2 diabetes Last A1c of 7.1 Patient appears to be on Jardiance 10 mg p.o. daily Plan: Sliding scale insulin #Anxiety Patient is on as needed lev albuterol for wheezing As needed alprazolam 0.5 mg p.o. twice daily Plan: Restarted home medications as needed Health Maintenance: Lines: PIV, ankle and upper extrem Diet: restart diet, Bowel: Senna PRN GI prophylaxis: None needed DVT prophylaxis: On heparin drip Dispo: pt undergoing thrombolysis of DVTs on LLE, will discharge with recs for hypercoag workup outpt. Code: Full Case discussed with my senior resident Dr. Siu Case discussed with my attending Dr. Erick Murrell MD PGY-1 Attending Provider Attestation/Addendum Franchesca Fitzpatrick, DO, attest that I was physically present for the sigala portions of the service and evaluated the patient with the resident and I reviewed and discussed the case with the resident and agree with the resident's findings and plans of care as documented above Patient seen and eval this afternoon after patient underwent catheter directed thrombolysis. Patient states he is feeling well. Daughter is at bedside and states that patient has been having difficulty with her referrals. Patient was known to service as he was transferred for right pleural effusion and underwent an open decortication of his right middle and lower lobe due to chronic fibrous pleuritis. Patient was discharged home with Flagyl and 17. Patient was also discharged home with Eliquis 5 mg p.o. twice daily as he was recently at diagnosed with new onset A-fib when he was admitted to our hospital. Patient states that he has been taking his Eliquis as instructed. However, yesterday patient underwent a ultrasound of lower extremity during which he was found to have an extensive left lower extremity DVT. This ultrasound had been pending for over 5 months due to the referral. He had had some left lower extremity edema previously which prompted the study. Daughter states that there was been some mild lower extremity edema due to immobilization following VATS and patient continues to suffer from pain in his right chest following procedure. However, suspect that this thrombus has been somewhat chronic as he has been waiting for this referral for over 5 months. I had discussed the case with cardiology who also suspects that this thrombus is chronic and recommends loading dose of Eliquis upon discharge as patient has not been on Eliquis for a long time as patient was discharged from the hospital on 03/04/25. Patient is pending venogram in AM. Will follow-up with IR recommendations. Continue with heparin drip at this time.
--- NOTE | 2025-03-11 07:30 | XR_ITS ---
Examination: AP chest single view TECHNIQUE: AP portable upright chest single view Date and time: March 11, 2025, 0543 hours INDICATIONS: Shortness of breath this week. FINDINGS: Stable right pleural disease Normal heart size No pulmonary edema. Mild osteopenia. IMPRESSION: Stable right pleural disease
[2025-03-11] MEDS: cefTRIAXone/D5w 1gm IV premix 1 GM/50 ML BAG IV (08:49)
[2025-03-11] MEDS: METOPROLOL SUCCINATE XL 25 MG TABCR PO (08:49)
[2025-03-11] MEDS: AMIODARONE HCL 200 MG TABLET PO ×2 (08:49→20:06)
[2025-03-11] MEDS: POTASSIUM CHLORIDE 10% 20 MEQ/15 ML UDC PO (08:49)
--- NOTE | 2025-03-11 09:13 | XR_ITS ---
Examination: IR contrast venogram left lower extremity Fluoroscopy 22 spot fluoroscopic films of the lower extremity INDICATIONS: Leg pain and swelling this week, positive for DVT extensive in the left lower extremity on venous Doppler March 10, 2025 Exam date and time: March 11, 2025 1259 hours TECHNIQUE AND FINDINGS: Hand injection 40 cc [id number] with 22 spots lateral films obtained of the lower extremity, left The entire deep venous system is occluded There is filling of the greater saphenous vein and left common iliac vein IMPRESSION: Extensive deep vein thrombus in the left lower extremity PLAN: Initiation local intravenous thrombolytic therapy
[2025-03-11 10:35] LABS: Partial Thromboplastin Time 64.3 Seconds (22.0-36.0)
--- NOTE | 2025-03-11 11:19 | PC.SS ---
Patient Owen Santacruz is 64-year-old, admtted for DVT. SS met with patient and patient's , Tara as well as patients Daughter, Mary. Patient resides at home with Tara and his daughter, Mary. Patient is independent with all ADLs, no DME use. Patient's PCP is Gee Segal. When medically clear, patient will return home. Pharmacy of choice is [facility]. At time of discharge patient will return back home. Discharge plan: home Next of kin: Daughter, Mary Santacruz
[2025-03-11] MEDS: SODIUM CHLORIDE 0.9% IV ×2 (15:00→20:08)
[2025-03-11] MEDS: CATHFLO IV ×2 (15:00→20:08)
[2025-03-11] MEDS: Heparin/D5w 25K 250 ML Ivpb 25,000 UNIT/250 ML BAG 12.9 UNIT IV (15:15)
[2025-03-11 18:24] LABS: Partial Thromboplastin Time 60.8 Seconds (22.0-36.0)
[2025-03-11] MEDS: INSULIN LISPRO (AdmeLOG) 1 UNIT/0.01 ML UNIT SC (20:06)
[2025-03-11] MEDS: ACETAMINOPHEN 325 MG TABLET 650 MG PO (21:45)
[2025-03-12] VITALS (11 sets, daily range): BP systolic 119–141; BP diastolic 70–98; PULSE 70–98; RESP 14–30; TEMP 36.1–37.1; O2SAT 95–99; BMI 26.6
[2025-03-12 01:15] LABS: Partial Thromboplastin Time 69.2 Seconds (22.0-36.0)
[2025-03-12] MEDS: SODIUM CHLORIDE 0.9% IV ×4 (02:23→22:22)
[2025-03-12] MEDS: CATHFLO IV ×4 (02:23→22:22)
[2025-03-12 06:25] LABS: Basophils # (Auto) 0.0 Thou/mm3 (0.0-0.2); Basophils % (Auto) 0 % (0-2.5); Eosinophils # (Auto) 0.2 Thou/mm3 (0.0-0.5); Eosinophils % (Auto) 2 % (0-10); Hematocrit 46.3 % (41.0-53.0); Hemoglobin 15.1 g/dL (13.5-16.0); Immature Granulocytes Auto 0.08 Thou/mm3 (0.00-0.00); Lymphocytes # (Auto) 2.6 Thou/mm3 (1.0-4.8); Lymphocytes % (Auto) 26 % (10-50); Mean Corpuscular HGB Conc 32.6 g/dl (31.0-37.0); Mean Corpuscular Hemoglobin 26.6 pg (25.0-35.0); Mean Corpuscular Volume 82 fL (80-100); Monocytes # (Auto) 0.8 Thou/mm3 (0.0-0.8); Monocytes % (Auto) 8 % (0-12); Neutrophils # (Auto) 6.2 Thou/mm3 (1.8-7.7); Neutrophils % (Auto) 62 % (37-80); Nucleated Red Blood Cell # 0.00 Thou/mm3 (0.00-0.00); Nucleated Red Blood Cell % 0 /100 WBC (0); Platelet Count 251 Thou/mm3 (140-440); RDW Standard Deviation 48.9 fL (35.1-43.9); Red Blood Count 5.68 Miln/mm3 (4.50-5.90); White Blood Count 9.9 Thou/mm3 (3.8-10.6)
[2025-03-12 06:56] LABS: Partial Thromboplastin Time 76.8 Seconds (22.0-36.0)
[2025-03-12 07:00] LABS: Alanine Aminotransferase 14 U/L (10-49); Albumin, Serum 3.6 gm/dL (3.4-4.8); Albumin/Globulin Ratio 1.3 (1.2-2.2); Alkaline Phosphatase 68 U/L (46-116); Anion Gap 11 (7-16); Aspartate Amino Transferase 18 U/L (0-34); BUN/Creatinine Ratio 13 Ratio (12-20); Bilirubin,Total 0.7 mg/dL (0.3-1.2); Blood Urea Nitrogen 13 mg/dL (9-23); Calcium 8.8 mg/dL (8.3-10.6); Calcium (Corrected) 9.1 mg/dL (8.5-10.1); Carbon Dioxide 24.8 mMol/L (20.0-31.0); Chloride 104 mMol/L (98-107); Creatinine (Component) 1.0 mg/dL (0.6-1.3); Estimated Creatinine Clearance 65.8 mL/min (>60); Globulin 2.7 gm/dL (2.3-3.5); Glucose 161 mg/dL (74-106); Magnesium 1.4 mg/dL (1.6-2.6); Osmolality,Calculated 282 (275-295); Phosphorous 3.4 mg/dL (2.4-5.1); Potassium 4.1 mMol/L (3.4-5.1); Sodium 140 mMol/L (136-145); Total Protein 6.3 gm/dL (5.7-8.2); eGFR > 60 See Note
--- NOTE | 2025-03-12 07:00 | XR_ITS ---
Examination: Contrast left leg venogram Fluoroscopy 16 spot fluoroscopic films of the left lower extremity Thrombolytic therapy local intravenous Date and time: March 12, 2025, 1610 hours INDICATIONS: Leg pain this week, extensive deep vein thrombus on venous Doppler study March 10, 2025, undergoing thrombolytic therapy since yesterday TECHNIQUE AND FINDINGS: Informed consent provided. Timeout performed. Hand injection 40 cc Isovue-300 with 16 spot fluoroscopic films of the lower extremity obtained, fluoroscopy 0.1 minute radiation dose 0.50 mg Significant improvement There is now partial recanalization of cavitary distal popliteal vein, popliteal vein superficial femoral vein and filling of the common femoral vein IMPRESSION: Significant improvement, partial recanalization and filling of the tributaries to the popliteal vein, popliteal vein and superficial femoral vein, femoral vein PLAN: Continue local intravenous only therapy until tomorrow, DC thrombolytic therapy at 12 noon Recommend continue systemic anticoagulation therapy
--- NOTE | 2025-03-12 08:07 | ESPR_ITS ---
<Statement entered by Damaris Guerra MD - 03/16/25 08:03> I reviewed above note and agree with findings and plans. I have also personally examined the patient with medicine team and went over assessment and plan with medical team including sales management intern and resident physician. <Statement entered by Tanvir Siu MD - 03/12/25 13:46> Patient seen and examined at the bedside. No acute overnight events reviewed. Patient is undergoing IVC venogram to evaluate clot in his leg and continue to be on heparin drip. Will continue with that for now. Skip Load Driver recommended to place him on Eliquis 10 mg twice daily x 7 days and Eliquis 5 mg twice daily upon discharge. All labs and orders were reviewed. I discussed and supervised with the sales management intern physician who took care of this patient. I personally saw and examined the patient. I agree with most of the assessment and plan. Disclaimer: Despite multiple revisions, due to the dictation software being used, the document bellow may not be free of grammatical errors including phonetic/typographic errors. However, this does not deter from our commitment to providing health care in the patient's best interest in mind. Plan of care discussed with attending Physician Dr. Charlie Siu MD PGY-3 Documentation for date of: 03/12/25 Subjective Subjective Interval history: No acute events overnight pt cont with venogram and heparin drip for LLE DVT Exam Vital Signs Temp Pulse Resp BP Pulse Ox O2 Del Method 97.0 F 98 18 119/77 96 Room Air 03/12/25 04:00 03/12/25 06:47 03/12/25 06:47 03/12/25 04:00 03/12/25 06:47 03/12/25 04:00 Narrative Exam GENERAL: no acute distress, AAO x3, comfortably laying in bed HEENT: Head AT/ NC. Mucous membranes moist. PERRL. CARDIOVASCULAR: RRR. Normal S1/S2, No m/r/g. No pitting edema of bilateral LEs. RESPIRATORY: CTAB. No wheezing, rhonchi, crackles. GASTROINTESTINAL: Abdomen soft, non tender no palpable masses. Bowel sounds present MUSCULOSKELETAL:? No cyanosis or edema, no visible joint swelling, LLE non edematous, non tender to palpation, NEUROLOGICAL: CN II-XII grossly intact. No focal deficits. Sensation intact, symmetric. PSYCHIATRIC: Awake and alert, not agitated, normal mood and affect. SKIN: No obvious rashes, no jaundice, normal turgor. Objective Labs 03/12/25 05:41 03/12/25 05:41 Labs: Laboratory Results - last 24 hr 03/11/25 03/11/25 03/12/25 09:10 16:33 00:23 WBC RBC Hgb Hct MCV MCH MCHC RDW Std Deviation Plt Count Neut % (Auto) Lymph % (Auto) [place] % (Auto) Eos % (Auto) Baso % (Auto) Neut # (Auto) Lymph # (Auto) [place] # (Auto) Eos # (Auto) Baso # (Auto) Immature Gran # (Auto) Absolute Nucleated RBC Immature Gran % Nucleated RBC % APTT 64.3 H 60.8 H 69.2 H Sodium Potassium Chloride Carbon Dioxide Anion Gap BUN Creatinine Estim Creat Clear Calc eGFR BUN/Creatinine Ratio Glucose Calculated Osmolality Calcium Corrected Calcium Phosphorus Magnesium Total Bilirubin AST ALT Alkaline Phosphatase Total Protein Albumin Globulin Albumin/Globulin Ratio 03/12/25 05:41 WBC 9.9 RBC 5.68 Hgb 15.1 Hct 46.3 MCV 82 MCH 26.6 MCHC 32.6 RDW Std Deviation 48.9 H Plt Count 251 D Neut % (Auto) 62 Lymph % (Auto) 26 [place] % (Auto) 8 Eos % (Auto) 2 Baso % (Auto) 0 Neut # (Auto) 6.2 Lymph # (Auto) 2.6 [place] # (Auto) 0.8 Eos # (Auto) 0.2 Baso # (Auto) 0.0 Immature Gran # (Auto) 0.08 H Absolute Nucleated RBC 0.00 Immature Gran % 1 H Nucleated RBC % 0 APTT 76.8 H Sodium 140 Potassium 4.1 Chloride 104 Carbon Dioxide 24.8 Anion Gap 11 BUN 13 Creatinine 1.0 Estim Creat Clear Calc 65.8 eGFR > 60 BUN/Creatinine Ratio 13 Glucose 161 H Calculated Osmolality 282 Calcium 8.8 Corrected Calcium 9.1 Phosphorus 3.4 Magnesium 1.4 L Total Bilirubin 0.7 AST 18 ALT 14 Alkaline Phosphatase 68 Total Protein 6.3 Albumin 3.6 Globulin 2.7 Albumin/Globulin Ratio 1.3 Quality Measures Quality Measures VTE prophylaxis and VTE therapy Assessment & Plan Assessment Current Active Medications: Generic Name Dose Route Start Last Admin Trade Name Freq PRN Reason Stop Dose Admin Acetaminophen 650 mg 07/23/25 21:49 03/11/25 21:45 Acetaminophen 325 Mg Tablet PO 04/09/25 21:48 650 mg Q6H PRN Administration PAIN SCALE 1-3 (mild Alprazolam 0.5 mg 03/10/25 21:52 Alprazolam 0.25 Mg Tablet PO 03/16/25 08:59 BID PRN ANXIETY Amiodarone HCl 200 mg 03/11/25 09:00 03/11/25 20:06 Amiodarone Hcl 200 Mg Tablet PO 04/10/25 08:59 200 mg BID TU Administration Dextrose 25 ml 03/10/25 21:49 Dextrose 50%-Water Inj 50 Ml Syringe IV 04/09/25 21:48 Q15MIN PRN BG 50-70 responsive npo pt Dextrose 50 ml 03/10/25 21:49 Dextrose 50%-Water Inj 50 Ml Syringe IV 04/09/25 21:48 Q15MIN PRN BG <50 OR BG <70 & pt unresponsive Glucagon 1 mg 03/10/25 21:49 Glucagon Inj 1 Mg Vial IM Q15MIN PRN BG <70, and no IV access Heparin Sodium/Dextrose 25,000 unit in 250 mls @ 12.9 mls/hr 03/10/25 18:30 03/12/25 06:58 Heparin In D5w Ivpb IV 03/24/25 18:29 18 units/kg/hr .[id number] TU 12.9 mls/hr Titration Protocol 18 UNITS/KG/HR Ceftriaxone Sodium/Dextrose 1 gm in 50 mls @ 100 mls/hr 03/10/25 21:54 03/11/25 08:49 Rocephin/D5w 1gm Iv Premix IV 03/17/25 21:53 100 mls/hr QDAY TU Administration Alteplase, Recombinant 4 mg/ 80 mls @ 14 mls/hr 03/11/25 14:25 03/12/25 02:23 Sodium Chloride IV 03/14/25 14:24 0.7 mg/hr .[id number] TU 14 mls/hr Administration Protocol 0.7 MG/HR Magnesium Sulfate 4 gm in 50 mls @ 12.5 mls/hr 03/12/25 08:05 Magnesium Sulfate Ivpb IV 03/12/25 12:04 X1 ONE Insulin Human Lispro 0 unit 03/11/25 21:00 03/11/25 20:06 Insulin Lispro (Admelog) 1 Unit/0.01 Ml Unit SC 04/10/25 20:59 1 unit ACHS TU Administration Protocol Levalbuterol HCl 0.63 mg 03/10/25 21:52 Levalbuterol Rt 0.63 Mg/3 Ml Nebu INH 04/09/25 21:51 Q8HR PRN WHEEZING Metoprolol Succinate 25 mg 03/11/25 09:00 03/11/25 08:49 Metoprolol Succinate Xl 25 Mg Tabcr PO 04/10/25 08:59 25 mg QDAY TU Administration Ondansetron HCl 4 mg 03/10/25 21:49 Ondansetron Inj 2 Mg/Ml Inj 2 Ml IVP 04/09/25 21:48 Q6H PRN NAUSEA OR VOMITING Protocol Sennosides 1 tab 03/10/25 21:49 Senna Tablet PO 04/09/25 21:48 QDAY PRN constipation Protocol Plan 64-year-old male with past medical history of hypertension, prediabetes, recent right-sided pleural effusion with loculated effusion requiring VATS and chest tube placement, A-fib on Eliquis presenting to the ED on 03/10 after he was completing an ultrasound Doppler of the left leg for lower extremity swelling and found to have a substantial DVT on multiple vein, pt continues on thrombolysis tx of LLE and heparin drip. #DVT, left lower extremity #Erythrocytosis query? Differentials include: Hypercoagulable state, possible malignancy, testosterone use in the past, polycythemia vera less likely Patient developed left lower extremity swelling roughly 3 months ago, PCP ordered Doppler ultrasound which was just completed On examination, patient does not have any significant lower extremity edema or erythema Dx Doppler ultrasound of the left extremity showed extensive occlusive DVT in the left lower extremity including the left common femoral, left superficial femoral, left popliteal peroneal and posterior tibial veins. DVT US of RLE: no DVT Tx Continue IV heparin drip Cont LLE thrombolysis Consider hypercoagulable workup as an outpatient, given pt is currently on heparin drip #Recent VATS, for loculated effusion As stated above, patient had loculated effusion status post VATS at [facility] Patient had chest tube removed, discharged from [facility] on 03/04 Was started on Flagyl and cefuroxime Dx - CXR with Stable right pleural disease Tx - Continue IV ceftriaxone intend 5-7 day course #Atrial fibrillation on apix CHADVASc of 2 Newly diagnosed with A-fib earlier this month EKG showed atrial fibrillation with nonspecific T wave changes Echo on 02/19/2025 - Normal LV size and wall thickness. Estimated EF at 55-60% RV is normal in size and systolic function. Estimated RVSP, 28 mmHg. RAP 5. Moderate MR. Mild AI and TR. Dx - cont tele monitoring Tx: - cont metoprolol succinate - plan to discharge on 10mg apix BID for 7 days and then 5mg BID - Holding Eliquis as the patient is on IV heparin drip #Agf-lghdnqr-byjmojjob type 2 diabetes Last A1c of 7.1 Patient appears to be on Jardiance 10 mg p.o. daily Plan: Sliding scale insulin #Anxiety Patient is on as needed lev albuterol for wheezing As needed alprazolam 0.5 mg p.o. twice daily Plan: cont home medications as needed Health Maintenance: Lines: PIV, ankle and upper extrem Diet: restart diet, Bowel: Senna PRN GI prophylaxis: None needed DVT prophylaxis: On heparin drip Dispo: pt undergoing thrombolysis of DVTs on LLE, will discharge with recs for hypercoag workup outpt. Code: Full Case discussed with my senior resident Dr. Siu Case discussed with my attending Dr. Charlie Murrell MD PGY-1
[2025-03-12] MEDS: INSULIN LISPRO (AdmeLOG) 1 UNIT/0.01 ML UNIT SC ×2 (08:15→21:39)
--- NOTE | 2025-03-12 09:14 | PC.SS ---
SS Follow up note; Patient is currently on Heparin Drip. Patient will discharge home when medically cleared.
[2025-03-12] MEDS: cefTRIAXone/D5w 1gm IV premix 1 GM/50 ML BAG IV (10:00)
[2025-03-12] MEDS: Magnesium Sulfate 4 GM Ivpb 4 GM/50 ML BAG IV (10:00)
[2025-03-12] MEDS: METOPROLOL SUCCINATE XL 25 MG TABCR PO (10:01)
[2025-03-12] MEDS: AMIODARONE HCL 200 MG TABLET PO ×2 (10:04→21:39)
[2025-03-12] MEDS: Heparin/D5w 25K 250 ML Ivpb 25,000 UNIT/250 ML BAG 12.9 UNIT IV (10:59)
--- NOTE | 2025-03-12 17:16 | PC.NURSE ---
patient transfered back to room carrier clinic. handoff report given to senia campos. notified rn of jose campbell recommendations to turn off cathflo drip at 11am, continue heparin, and resume home bloodthinners upon discharge.
[2025-03-13] VITALS (9 sets, daily range): BP systolic 118–141; BP diastolic 70–90; PULSE 77–92; RESP 15–20; TEMP 36.1–36.6; O2SAT 95–97; BMI 26.6
[2025-03-13] MEDS: SODIUM CHLORIDE 0.9% IV ×2 (04:46→12:09)
[2025-03-13] MEDS: CATHFLO IV ×2 (04:46→12:09)
[2025-03-13 05:54] LABS: Basophils # (Auto) 0.0 Thou/mm3 (0.0-0.2); Basophils % (Auto) 0 % (0-2.5); Eosinophils # (Auto) 0.1 Thou/mm3 (0.0-0.5); Eosinophils % (Auto) 1 % (0-10); Hematocrit 44.8 % (41.0-53.0); Hemoglobin 14.7 g/dL (13.5-16.0); Immature Granulocytes Auto 0.07 Thou/mm3 (0.00-0.00); Lymphocytes # (Auto) 2.4 Thou/mm3 (1.0-4.8); Lymphocytes % (Auto) 26 % (10-50); Mean Corpuscular HGB Conc 32.8 g/dl (31.0-37.0); Mean Corpuscular Hemoglobin 26.7 pg (25.0-35.0); Mean Corpuscular Volume 81 fL (80-100); Monocytes # (Auto) 0.8 Thou/mm3 (0.0-0.8); Monocytes % (Auto) 9 % (0-12); Neutrophils # (Auto) 5.6 Thou/mm3 (1.8-7.7); Neutrophils % (Auto) 62 % (37-80); Nucleated Red Blood Cell # 0.00 Thou/mm3 (0.00-0.00); Nucleated Red Blood Cell % 0 /100 WBC (0); Platelet Count 292 Thou/mm3 (140-440); RDW Standard Deviation 49.0 fL (35.1-43.9); Red Blood Count 5.51 Miln/mm3 (4.50-5.90); White Blood Count 9.0 Thou/mm3 (3.8-10.6)
[2025-03-13 06:26] LABS: Alanine Aminotransferase 17 U/L (10-49); Albumin, Serum 3.6 gm/dL (3.4-4.8); Albumin/Globulin Ratio 1.4 (1.2-2.2); Alkaline Phosphatase 73 U/L (46-116); Anion Gap 11 (7-16); Aspartate Amino Transferase 21 U/L (0-34); BUN/Creatinine Ratio 18 Ratio (12-20); Bilirubin,Total 0.4 mg/dL (0.3-1.2); Blood Urea Nitrogen 14 mg/dL (9-23); Calcium 8.7 mg/dL (8.3-10.6); Calcium (Corrected) 9.0 mg/dL (8.5-10.1); Carbon Dioxide 26.9 mMol/L (20.0-31.0); Chloride 105 mMol/L (98-107); Creatinine (Component) 0.8 mg/dL (0.6-1.3); Estimated Creatinine Clearance 82.2 mL/min (>60); Globulin 2.5 gm/dL (2.3-3.5); Glucose 139 mg/dL (74-106); Magnesium 1.9 mg/dL (1.6-2.6); Osmolality,Calculated 287 (275-295); Phosphorous 3.8 mg/dL (2.4-5.1); Potassium 3.8 mMol/L (3.4-5.1); Sodium 143 mMol/L (136-145); Total Protein 6.1 gm/dL (5.7-8.2); eGFR > 60 See Note
[2025-03-13 06:35] LABS: INR 1.1 (0.9-1.3); Partial Thromboplastin Time 62.4 Seconds (22.0-36.0); Prothrombin Time 11.8 Seconds (9.0-12.2)
--- NOTE | 2025-03-13 07:08 | PC.NURSE ---
Contacted lab, spoke to Nelly in regards to PTT, was told that she will run it right now.
--- NOTE | 2025-03-13 07:10 | PD.RESPRO ---
Documentation for date of: 03/13/25 Exam Vital Signs Temp Pulse Resp BP Pulse Ox O2 Del Method 97.9 F 92 18 118/70 96 Room Air 03/13/25 04:00 03/13/25 06:33 03/13/25 06:33 03/13/25 04:00 03/13/25 06:33 03/13/25 04:00 Objective Labs 03/13/25 05:08 03/13/25 05:08 Labs: Laboratory Results - last 24 hr 03/13/25 05:08 WBC 9.0 RBC 5.51 Hgb 14.7 Hct 44.8 MCV 81 MCH 26.7 MCHC 32.8 RDW Std Deviation 49.0 H Plt Count 292 D Neut % (Auto) 62 Lymph % (Auto) 26 [place] % (Auto) 9 Eos % (Auto) 1 Baso % (Auto) 0 Neut # (Auto) 5.6 Lymph # (Auto) 2.4 [place] # (Auto) 0.8 Eos # (Auto) 0.1 Baso # (Auto) 0.0 Immature Gran # (Auto) 0.07 H Absolute Nucleated RBC 0.00 Immature Gran % 1 H Nucleated RBC % 0 Sodium 143 Potassium 3.8 Chloride 105 Carbon Dioxide 26.9 Anion Gap 11 BUN 14 Creatinine 0.8 Estim Creat Clear Calc 82.2 eGFR > 60 BUN/Creatinine Ratio 18 Glucose 139 H Calculated Osmolality 287 Calcium 8.7 Corrected Calcium 9.0 Phosphorus 3.8 Magnesium 1.9 Total Bilirubin 0.4 AST 21 ALT 17 Alkaline Phosphatase 73 Total Protein 6.1 Albumin 3.6 Globulin 2.5 Albumin/Globulin Ratio 1.4 Quality Measures Quality Measures VTE prophylaxis and VTE therapy Assessment & Plan Assessment Current Active Medications: Generic Name Dose Route Start Last Admin Trade Name Freq PRN Reason Stop Dose Admin Acetaminophen 650 mg 03/10/25 21:49 03/11/25 21:45 Acetaminophen 325 Mg Tablet PO 04/09/25 21:48 650 mg Q6H PRN Administration PAIN SCALE 1-3 (mild Alprazolam 0.5 mg 03/10/25 21:52 Alprazolam 0.25 Mg Tablet PO 03/16/25 08:59 BID PRN ANXIETY Amiodarone HCl 200 mg 03/11/25 09:00 03/12/25 21:39 Amiodarone Hcl 200 Mg Tablet PO 04/10/25 08:59 200 mg BID TU Administration Dextrose 25 ml 03/10/25 21:49 Dextrose 50%-Water Inj 50 Ml Syringe IV 04/09/25 21:48 Q15MIN PRN BG 50-70 responsive npo pt Dextrose 50 ml 03/10/25 21:49 Dextrose 50%-Water Inj 50 Ml Syringe IV 04/09/25 21:48 Q15MIN PRN BG <50 OR BG <70 & pt unresponsive Glucagon 1 mg 03/10/25 21:49 Glucagon Inj 1 Mg Vial IM Q15MIN PRN BG <70, and no IV access Heparin Sodium/Dextrose 25,000 unit in 250 mls @ 12.9 mls/hr 03/10/25 18:30 03/12/25 10:59 Heparin In D5w Ivpb IV 03/24/25 18:29 18 units/kg/hr .[id number] TU 12.9 mls/hr Administration Protocol 18 UNITS/KG/HR Ceftriaxone Sodium/Dextrose 1 gm in 50 mls @ 100 mls/hr 03/10/25 21:54 03/12/25 10:00 Rocephin/D5w 1gm Iv Premix IV 03/17/25 21:53 100 mls/hr QDAY TU Administration Alteplase, Recombinant 4 mg/ 80 mls @ 14 mls/hr 03/11/25 14:25 03/13/25 04:46 Sodium Chloride IV 03/14/25 14:24 0.7 mg/hr .[id number] TU 14 mls/hr Administration Protocol 0.7 MG/HR Insulin Human Lispro 0 unit 03/11/25 21:00 03/12/25 21:39 Insulin Lispro (Admelog) 1 Unit/0.01 Ml Unit SC 04/10/25 20:59 1 unit ACHS TU Administration Protocol Levalbuterol HCl 0.63 mg 03/10/25 21:52 Levalbuterol Rt 0.63 Mg/3 Ml Nebu INH 04/09/25 21:51 Q8HR PRN WHEEZING Metoprolol Succinate 25 mg 03/11/25 09:00 03/12/25 10:01 Metoprolol Succinate Xl 25 Mg Tabcr PO 04/10/25 08:59 25 mg QDAY TU Administration Ondansetron HCl 4 mg 03/10/25 21:49 Ondansetron Inj 2 Mg/Ml Inj 2 Ml IVP 04/09/25 21:48 Q6H PRN NAUSEA OR VOMITING Protocol Sennosides 1 tab 03/10/25 21:49 Senna Tablet PO 04/09/25 21:48 QDAY PRN constipation Protocol
[2025-03-13] MEDS: Heparin/D5w 25K 250 ML Ivpb 25,000 UNIT/250 ML BAG 12.9 UNIT IV (07:27)
[2025-03-13] MEDS: AMIODARONE HCL 200 MG TABLET PO (09:07)
[2025-03-13] MEDS: POTASSIUM CHLORIDE 10% 20 MEQ/15 ML UDC PO (09:07)
[2025-03-13] MEDS: METOPROLOL SUCCINATE XL 25 MG TABCR PO (09:07)
[2025-03-13] MEDS: cefTRIAXone/D5w 1gm IV premix 1 GM/50 ML BAG IV (09:08)
[2025-03-13] MEDS: Magnesium Sulfate 2 GM Ivpb 2 GM/50 ML BAG IV (09:08)
--- NOTE | 2025-03-13 09:48 | PC.SS ---
Addendum entered by Moraima Jorgensen 03/13/25 14:20: Per afternoon rounding, pt will stay and at this time there is no d/c date. Dr. Gallegos is following. Original Note: Per morning rouding, pt will d/c home today. Pt will undergo IVC venogram today. Recommendation is Kendal.
[2025-03-13] MEDS: INSULIN LISPRO (AdmeLOG) 1 UNIT/0.01 ML UNIT SC (12:09)
--- NOTE | 2025-03-13 13:48 | PD.RESDS ---
Planned Discharge Date 03/13/25 DS: Providers Provider Date of admission: 03/10/25 21:47 Primary care physician: Gee Bolanos Admitting Provider: Eder Epperson MD Attending Provider on Admission: Eder Epperson MD Consults: 03/11/25 01:32 Referral Infection Control Routine Comment: Reason for Infection Control Referral: Readmitted within 30 days Attending Provider on DC: Damaris Guerra MD Discharging Provider: Nilam Murrell, Hospital Course Time Spent with Patient Time attestation: Total time spent providing and/or coordinating discharge services: Exam Vital Signs Temp Pulse Resp BP Pulse Ox O2 Del Method 97.6 F 82 16 119/78 97 Room Air 03/13/25 12:00 03/13/25 12:00 03/13/25 12:00 03/13/25 12:00 03/13/25 12:00 03/13/25 08:00 Discharge Plan Plan Patient Disposition: HOME (Self Care) Care Plan Goals: Take Eliquis 10 mg twice daily for 7 days and continue Eliquis 5 mg twice daily for DVT in your leg Take metoprolol succinate 25 mg once daily, amiodarone 200 mg twice daily, Jardiance 10 mg once daily, alprazolam 0.5 mg twice daily as needed for anxiety Use levalbuterol inhaler for shortness of breath as needed Follow-up with your PCP as outpatient within a week In case of emergency, call 911 and come back to the ED Prescriptions/Referrals Prescriptions/Med Rec: New metoprolol succinate 25 mg Tablet Extended Release 24 Hr 25 mg PO QDAY Qty: 90 0RF Eliquis DVT-PE Treat 30D Start 5 mg (74 tabs) tablets,dose pack 5 mg PO BID Qty: 74 0RF Continued Amlodipine Besylate 10 MG tablet 10 mg PO QDAY Qty: 30 Aspirin (Adult Low Dose Aspirin) 81 MG TABLET.DR 81 mg PO QDAY Qty: 30 cyclobenzaprine 10 mg tablet 10 mg PO TID PRN (Reason: muscle spasm) Qty: 30 0RF amiodarone 200 mg tablet 200 mg PO Q12H Jardiance 10 mg tablet 10 mg PO QDAY levalbuterol tartrate 45 mcg/actuation HFA aerosol inhaler 2 puff INHALATION Q6H PRN (Reason: shortness of breath or wheezing) alprazolam [Xanax] 0.5 mg tablet 0.5 mg PO BID PRN (Reason: anxiety) Discontinued metoprolol succinate 25 mg tablet extended release 24 hr 50 mg PO Q12H Patient Comments: patient has not started med, new prescription metoprolol succinate 50 mg tablet extended release 24 hr 50 mg PO BID Qty: 180 0RF metronidazole 500 mg tablet 500 mg PO Q8H Eliquis 5 mg tablet 5 mg PO Q12H cefuroxime axetil 250 mg tablet 250 mg PO Q12H Referrals: Gee Segal [Primary Care Provider] - Patient/Caregiver Discharge Instructions Education Materials: Alteplase, TPA injection, Understanding Venogram Print Language: Syriac Stand Alone Forms: Hilda Award Info., Patient Portal Info Letter
--- NOTE | 2025-03-13 16:25 | ESDS_ITS ---
<Statement entered by Damaris Guerra MD - 03/19/25 07:31> I reviewed above note and agree with findings and plans. I have also personally examined the patient with medicine team and went over assessment and plan with medical team including biology intern and resident physician. Planned Discharge Date 03/13/25 DS: Providers Provider Date of admission: 03/10/25 21:47 Primary care physician: Gee Bolanos Admitting Provider: Eder Epperson MD Attending Provider on Admission: Eder Epperson MD Consults: 03/11/25 01:32 Referral Infection Control Routine Comment: Reason for Infection Control Referral: Readmitted within 30 days Attending Provider on DC: Dr. Charlie STRICKLAND Discharging Provider: RESIDENT Shelby DS: Diagnosis Problem List Completed Was Problem List Reviewed/Reconciled?: Yes Hospital Course Hospital Course Hospital course: The patient is a 64-year-old male with past medical history of hypertension, pr ediabetes, atrial fibrillation (on Eliquis), and a recent right-sided pleural effusion requiring VATS and chest tube placement at [facility] (discharged on 03/04/2025), who presented to the ED on 03/10/2025 after being instructed by a radiologist to seek immediate medical attention following completion of a Doppler ultrasound of the left leg that revealed extensive deep vein thromboses (DVTs). The patient had experienced lower extremity swelling for approximately 3 months, and though Doppler was ordered earlier, delays in referral led to completion only on 03/10. At the time of ED presentation, he was mildly hypertensive with otherwise stable vital signs. Initial labs showed leukocytosis (WBC 11.4), hemoglobin 16.3, and INR 1.1. EKG showed atrial fibrillation. He was found to have occlusive DVTs involving the left common femoral, superficial femoral, popliteal, peroneal, and posterior tibial veins. He was already on apixaban but was transitioned to a heparin drip. Interventional Radiology was consulted and performed catheter-directed thrombolysis starting on 03/11. Venogram confirmed extensive clot burden in the deep venous system with initiation of local thrombolytics. Repeat venogram on 03/12 showed significant improvement with partial recanalization of the femoral and popliteal systems. Thrombolytics were continued through 03/13, with plans to discontinue therapy at noon. Cardiology was consulted, and due to suspicion that the clot may have been chronic (delayed diagnosis, outpatient follow-up issues, and prior surgery), they recommended reinitiating Eliquis with a 7-day loading dose of 10 mg BID, followed by 5 mg BID maintenance. The patient had previously undergone VATS for complicated right pleural effusion and had been discharged from that admission on antibiotics (Flagyl and cefuroxime). Given residual pleural changes on chest imaging, he was continued on IV ceftriaxone for a 5?7-day total course. His atrial fibrillation was managed with metoprolol succinate 25 mg daily and planned to resume apixaban at discharge. No rate or rhythm control complications occurred during this admission. He remained hemodynamically stable. Regarding his erythrocytosis, differentials included chronic testosterone use, undiagnosed hypercoagulable state, and polycythemia vera (less likely). Hypercoagulability workup is recommended as an outpatient. His prediabetes was managed with sliding scale insulin during hospitalization. Anxiety and asthma were managed with continuation of his home medications (as- needed alprazolam and levalbuterol inhaler). Patient remained hemodynamically stable, alert, and oriented throughout admission. No new complications. He was discharged in stable condition on systemic anticoagulation with Eliquis and outpatient follow-up instructions. Patient was counseled on the risks of bleeding, fall related injuries, and signs of serious bleeding while on anticoagulations; he verbalized understanding and agreed to take precautions at home. 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 Charlie Murrell MD PGY-1 Internal Medicine Time Spent with Patient Time attestation: Total time spent providing and/or coordinating discharge services: Time spent: Greater than 30 minutes Exam Vital Signs Temp Pulse Resp BP Pulse Ox O2 Del Method 97.6 F 86 16 120/90 H 96 Room Air 03/13/25 16:00 03/13/25 16:00 03/13/25 16:00 03/13/25 16:00 03/13/25 16:00 03/13/25 16:00 Narrative Exam GENERAL: no acute distress, AAO x3, comfortably laying in bed HEENT: Head AT/ NC. Mucous membranes moist. PERRL. CARDIOVASCULAR: RRR. Normal S1/S2, No m/r/g. No pitting edema of bilateral LEs. RESPIRATORY: CTAB. No wheezing, rhonchi, crackles. GASTROINTESTINAL: Abdomen soft, non tender no palpable masses. Bowel sounds present MUSCULOSKELETAL:? No cyanosis or edema, no visible joint swelling, LLE non edematous, non tender to palpation, NEUROLOGICAL: CN II-XII grossly intact. No focal deficits. Sensation intact, symmetric. PSYCHIATRIC: Awake and alert, not agitated, normal mood and affect. SKIN: No obvious rashes, no jaundice, normal turgor. Discharge Plan Plan Patient Disposition: HOME (Self Care) Patient condition on transfer: Stable Care Plan Goals: Take Eliquis 10 mg twice daily for 7 days and continue Eliquis 5 mg twice daily for DVT in your leg Take metoprolol succinate 25 mg once daily, amiodarone 200 mg twice daily, Jardiance 10 mg once daily, alprazolam 0.5 mg twice daily as needed for anxiety Use levalbuterol inhaler for shortness of breath as needed Follow-up with your PCP as outpatient within a week In case of emergency, call 911 and come back to the ED Prescriptions/Referrals Prescriptions/Med Rec: New metoprolol succinate 25 mg Tablet Extended Release 24 Hr 25 mg PO QDAY Qty: 90 0RF Eliquis DVT-PE Treat 30D Start 5 mg (74 tabs) tablets,dose pack 5 mg PO BID Qty: 74 0RF Continued Amlodipine Besylate 10 MG tablet 10 mg PO QDAY Qty: 30 Aspirin (Adult Low Dose Aspirin) 81 MG TABLET. 81 mg PO QDAY Qty: 30 cyclobenzaprine 10 mg tablet 10 mg PO TID PRN (Reason: muscle spasm) Qty: 30 0RF amiodarone 200 mg tablet 200 mg PO Q12H Jardiance 10 mg tablet 10 mg PO QDAY levalbuterol tartrate 45 mcg/actuation HFA aerosol inhaler 2 puff INHALATION Q6H PRN (Reason: shortness of breath or wheezing) alprazolam [Xanax] 0.5 mg tablet 0.5 mg PO BID PRN (Reason: anxiety) Discontinued metoprolol succinate 25 mg tablet extended release 24 hr 50 mg PO Q12H Patient Comments: patient has not started med, new prescription metoprolol succinate 50 mg tablet extended release 24 hr 50 mg PO BID Qty: 180 0RF metronidazole 500 mg tablet 500 mg PO Q8H Eliquis 5 mg tablet 5 mg PO Q12H cefuroxime axetil 250 mg tablet 250 mg PO Q12H Referrals: Gee Segal [Primary Care Provider] - Patient/Caregiver Discharge Instructions Education Materials: Alteplase, TPA injection, Understanding Venogram Print Language: Lao Stand Alone Forms: Hilda Award Info., Patient Portal Info Letter Discharge Order Discharge Orders: Discharge (Routine); Ordered 03/13/25 Ordered By: Tanvir Siu Quality Discharge Quality Measures VTE therapy
== END 2025-03-13 18:20 | disposition home or self-care (01) | DRG 197 ==
LOC: SERX 21:02 → SERHOLD 22:05 → S2NX 23:29
PROVIDERS: Emergency Provider Emergency Medicine; PCP Physician Assistant
DX: I82.412 Acute embolism and thrombosis of left femoral vein (principal); I82.432 Acute embolism and thrombosis of left popliteal vein; I82.442 Acute embolism and thrombosis of left tibial vein; I10 Essential (primary) hypertension; Z79.01 Long term (current) use of anticoagulants; I48.91 Unspecified atrial fibrillation; D75.1 Secondary polycythemia; D72.829 Elevated white blood cell count, unspecified; E11.9 Type 2 diabetes mellitus without complications; F41.9 Anxiety disorder, unspecified; R63.4 Abnormal weight loss; D68.59 Other primary thrombophilia; F32.9 Major depressive disorder, single episode, unspecified; I82.402 Acute embolism and thrombosis of unspecified deep veins of left lower extremity; J45.909 Unspecified asthma, uncomplicated; Z79.82 Long term (current) use of aspirin; Z79.84 Long term (current) use of oral hypoglycemic drugs; Z79.899 Other long term (current) drug therapy; J90 Pleural effusion, not elsewhere classified
CPT/HCPCS: 36415; 71045; 75820; 80053; 83090; 83735; 84100; 85025; 85300; 85301; 85302; 85305; 85610; 85613; 85730; 86146; 86147; 86148; 87081; 93005; 93971; 94664; 96365; 96366; 99284; J0696; J1644; J1815; J2997; J3475; J7050; Q9967; A9270

== ENCOUNTER → 2025-03-10 | Outpatient (CLI) | payer MEDICAID, SELFPAY ==
--- NOTE | 2025-03-10 15:00 | XR_ITS ---
Examination: Duplex scan of the lower extremity, unilateral left Date and time of exam: March 10, 2025 1444 hours INDICATIONS: Left calf swelling beginning 5 months ago Technique: Duplex scan of the extremity veins using B-mode/grayscale imaging and Doppler spectral analysis and color flow Attention is directed to internal echogenicity, compression and augmentation involving these veins, color flow assessment, spectral analysis Findings: Extensive occlusive deep vein thrombus left lower extremity, including left common femoral left superficial femoral left popliteal peroneal and posterior tibial veins IMPRESSION: Extensive occlusive deep vein thrombus left lower extremity
== END | disposition home or self-care (01) ==
LOC: CDIM 14:26
PROVIDERS: PCP Physician Assistant; Referring Provider Physician Assistant; Visit Provider Physician Assistant
DX: I82.402 Acute embolism and thrombosis of unspecified deep veins of left lower extremity (principal)
CPT/HCPCS: 93971

== ENCOUNTER 2025-06-30 10:15 | Day surgery (SDC) | payer MEDICAID, SELFPAY ==
--- NOTE | 2025-06-28 14:55 | EKG_ITS ---
[facility] Test Date: 2025-06-28 Pat Name: PIPPA ALICEA Department: Room: - Gender: Male Care Partner: EDUIN : 1960 Requested By: Shine Huber Order Number: [id number] Reading MD: Shine Huber Measurements Intervals Tea Rate: 98 P: AK: QRS: 6 QRSD: 83 T: -1 QT: 415 QTc: 531 Interpretive Statements ATRIAL FLUTTER/TACHYCARDIA ST DEVIATION AND MODERATE T-WAVE ABNORMALITY, CONSIDER INFERIOR ISCHEMIA [-0.1+ mV T WAVE IN II/aVF] Compared to ECG 03/10/2025 18:38:49 Possible ischemia now present Atrial fibrillation no longer present T-wave abnormality still present /store/S0/[id number].pdf
[2025-06-28 16:00] VITALS: BMI 28.3
[2025-06-28 16:50] LABS: Basophils # (Auto) 0.1 Thou/mm3 (0.0-0.2); Basophils % (Auto) 1 % (0-2.5); Eosinophils # (Auto) 0.2 Thou/mm3 (0.0-0.5); Eosinophils % (Auto) 2 % (0-10); Hematocrit 51.9 % (41.0-53.0); Hemoglobin 16.9 g/dL (13.5-16.0); Immature Granulocytes Auto 0.05 Thou/mm3 (0.00-0.00); Lymphocytes # (Auto) 2.4 Thou/mm3 (1.0-4.8); Lymphocytes % (Auto) 26 % (10-50); Mean Corpuscular HGB Conc 32.6 g/dl (31.0-37.0); Mean Corpuscular Hemoglobin 27.1 pg (25.0-35.0); Mean Corpuscular Volume 83 fL (80-100); Monocytes # (Auto) 0.9 Thou/mm3 (0.0-0.8); Monocytes % (Auto) 10 % (0-12); Neutrophils # (Auto) 5.5 Thou/mm3 (1.8-7.7); Neutrophils % (Auto) 61 % (37-80); Nucleated Red Blood Cell # 0.00 Thou/mm3 (0.00-0.00); Nucleated Red Blood Cell % 0 /100 WBC (0); Platelet Count 217 Thou/mm3 (140-440); RDW Standard Deviation 39.6 fL (35.1-43.9); Red Blood Count 6.23 Miln/mm3 (4.50-5.90); White Blood Count 9.0 Thou/mm3 (3.8-10.6)
[2025-06-28 17:03] LABS: INR 1.1 (0.9-1.3); Partial Thromboplastin Time 29.4 Seconds (22.0-36.0); Prothrombin Time 11.7 Seconds (9.0-12.2)
[2025-06-28 17:12] LABS: Anion Gap 10 (7-16); BUN/Creatinine Ratio 11 Ratio (12-20); Blood Urea Nitrogen 12 mg/dL (9-23); Calcium 9.2 mg/dL (8.3-10.6); Carbon Dioxide 26.2 mMol/L (20.0-31.0); Chloride 105 mMol/L (98-107); Creatinine (Component) 1.1 mg/dL (0.6-1.3); Estimated Creatinine Clearance 65.9 mL/min (>60); Glucose 95 mg/dL (74-106); Osmolality,Calculated 280 (275-295); Potassium 3.8 mMol/L (3.4-5.1); Sodium 141 mMol/L (136-145); eGFR > 60 See Note
[2025-06-30] VITALS (15 sets, daily range): BP systolic 99–167; BP diastolic 66–111; PULSE 44–101; RESP 11–21; TEMP 36.7; O2SAT 94–100; BMI 28.6
--- NOTE | 2025-06-30 11:30 | ECHO_ITS ---
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 Indication: Symptomatic AFib/ cardioversion. 2. No LA/ MATEUS thrombus. Bubble study negative for PFO or ASD. 3. Normal LV size and function. EF estimated at 55-60%. 4. Normal RV size and function. Mild TR. 5. Moderate -Severe MR with mild prolapse posterior mitral valve. Systolic blunting of pulmonary veins noted. 1/4 pulmonary vein systolic reversal noted. 6. Severely dilated LA an Mildly dilated RA. No pericardial effusion. Report Signatures Finalized by Shine Huber on 07/01/2025 01:35 AM
[2025-06-30] MEDS: MIDAZOLAM INJ 1 MG/ML VIAL 2 ML 5 MG IVP (12:39)
[2025-06-30] MEDS: BENZOCAINE 20% (Hurricaine) SPRAY 1 DOSE TOP (12:39)
[2025-06-30] MEDS: fentaNYL CIT INJ 50 mCg/ML AMP 2ML 125 MCG IVP (12:39)
--- NOTE | 2025-06-30 12:45 | EKG_ITS ---
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
--- NOTE | 2025-06-30 14:10 | PD.CARDOPNOT ---
Procedure Direct current cardioversion for uncontrolled atrial flutter Moderate Conscious Sedation with Versed and Fentanyl Date of Procedure 06/30/25 Pre Op Diagnosis Atrial flutter with 4:1 block Indication Atrial Flutter Post Op Diagnosis Normal Sinus Rhythm restored. Procedure Description Patient was in atrial flutter with ventricular rate controlled came in for elective cardioversion as patient was having significant symptoms for the Afib. Decision was made to perform cardioversion for the patient after performing a transesophageal echocardiogram. Transesophageal echocardiogram was completed today and did not show any significant LA or MATEUS thrombus.? Please see NERY report from today for rest of the findings.? Patient was already on anticoagulation with eliquis.. Patient was taken to the laborer demolition for the NERY and cardioversion, both anterior and posterior pads were placed.? Patient was given moderate sedation and received a total of 5 mg of Versed and 100 mcg of fentanyl prior to the procedure to provide him enough for sedation. A biphasic defibrillator was used.? A single 50 J synchronized shock was given and the patient converted successfully into normal sinus rhythm.? No complications during or after the procedure.? Patient is doing well.? His heart rate was stable between 50 to 70 bpm and appears to be normal sinus rhythm on the telemetry.? Recommend to perform an EKG to document normal sinus rhythm postprocedure.? Patient will be monitored in the laborer demolition for the next 1-2 hours and will be discharged home if hemodynamically stable. Will adjust his medications for atrial fibrillation as outpatient. Estimated Blood Loss 0 Specimen(s) Specimen(s): None Conclusion Successful direct current cardioversion of Atrial Fibrillation to Normal Sinus Rhythm Recommendation Continue metoprolol XL 50 mg Q Day and amiodarone 200 mg BID if BP stable and will adjust medications in the office as outpatient. Continue Eliquis 5 mg BID for anticaogulation. EKG to document NSR post procedure. No driving for 24 hours. Patient recommended to follow up in 1 week in the clinic. Surgical Staff Surgeon: Shine Huber MD
== END 2025-06-30 14:40 | disposition home or self-care (01) ==
PROVIDERS: PCP Physician Assistant; Referring Provider Internal Medicine Cardiovascular Disease; Visit Provider Internal Medicine Cardiovascular Disease
PROC: (CPT 93312; principal; 2025-06-30 11:30)
DX: I48.3 Typical atrial flutter (principal); I34.0 Nonrheumatic mitral (valve) insufficiency; Z86.718 Personal history of other venous thrombosis and embolism; I10 Essential (primary) hypertension; E11.9 Type 2 diabetes mellitus without complications; Z79.899 Other long term (current) drug therapy; Z79.84 Long term (current) use of oral hypoglycemic drugs; Z01.810 Encounter for preprocedural cardiovascular examination
CPT/HCPCS: 92960; 36415; 80048; 85025; 85610; 85730; 93005; 93312; 99152; J2250; J3010; A9270